=== PATIENT | male | born 1940 | race Caucasian/White ===

== ENCOUNTER 2016-10-12 15:28 | Inpatient (IN) | payer MEDICARE ==
[~2016-10-12] VITALS: Ht 185.4 cm; Wt 80.0 kg
[~2016-10-12 15:28] MED LIST: ASCO500C PO; ASPI325T PO; FOLI400T30 PO; LISI10TA PO; MEDR4PAK3 PO; METH2.5 PO; VITA500T49 PO; VITATAB25 OR; [UNRECOGNIZED DRUG - CODE] PO
[2016-10-12 16:06] VITALS: BP 155/74; PULSE 102; RESP 20; TEMP 98.7; O2SAT 100
[2016-10-12] MEDS ORDERED: SODIUM CHLORIDE 0.9% FLUSH 10 ML FLUSH IVF PRN (16:15)
[2016-10-12 16:23] VITALS: O2SAT 100
[2016-10-12] MEDS ORDERED: FOLI800T PO (16:27)
[2016-10-12] MEDS ORDERED: CETI10 PO (16:27)
[2016-10-12] MEDS ORDERED: ASPI81CH37 CHEW (16:27)
[2016-10-12] MEDS ORDERED: CYMB60CA PO (16:27)
[2016-10-12] MEDS ORDERED: LISI-515 PO (16:31)
[2016-10-12] MEDS ORDERED: FLUT50SP EACH NARE (16:31)
[2016-10-12] MEDS ORDERED: METH2.5T PO (16:31)
--- NOTE | 2016-10-12 16:33 | PD ---
HPI Chief Complaint: Cold / Flu Symptoms Time Seen by Provider: 15:58 Travel History International Travel<30 days: No Contact w/Intl Traveler<30days: No Traveled to known affect area: No History of Present Illness HPI This is a 76 year-old gentleman with history of multiple sclerosis, who [facility] and lethargy. The patient states he's had a cough for last several days. He denies any fevers but does state he's been weak and not feeling his normal self. He reports decreased appetite. He also reports decreased urination. There are no other complaints time my examination. PFSH Past Medical History Hypertension: Yes Neurologic: Yes (MULTIPLE SCLEROSIS) Past Surgical History Appendectomy: Yes Eye Surgery: Yes (cataracts) Neurologic Surgery: Yes (TRIGEMINAL NEURALGIA 6 PROCEDURES) Other Surgery: Yes (SKIN CANCER REMOVAL) Social History Alcohol Use: No Tobacco Use: No (QUIT 1984) Substance Use: No Allergies-Medications (Allergen,Severity, Reaction): Coded Allergies: No Known Allergies (Verified , 03/31/12) Reported Meds & Prescriptions Reported Meds & Active Scripts Active Reported Tramadol (Tramadol HCl) 50 Mg Tab 50 Mg PO Q8H PRN Milk of Magnesia Liq (Magnesium Hydroxide) 400 Mg/5 Ml Susp 30 Ml PO Q6H PRN Cough Syrup (Guaifenesin) 100 Mg/5 Ml Syrp 100 Mg PO Q6H PRN Flexeril (Cyclobenzaprine HCl) 10 Mg Tab 10 Mg PO Q8HR PRN Mapap (Acetaminophen) 500 Mg Tab 500 Mg PO Q6HR PRN Fiber-Caps (Calcium Polycarbophil) 625 Mg Tab 625 Mg PO QID Carbamazepine 200 Mg Tab 200 Mg PO QID Fluticasone Nasal [place] 50 Mcg/Act Naspr 1 Mcg EACH NARE BID 50 mcg/spray Methotrexate 2.5 Mg Tab 10 Mg PO WEDNESDAY Lisinopril 20 Mg Tab 20 Mg PO DAILY Folic Acid 800 Mcg Tab 800 Mcg PO DAILY Cymbalta DR (Duloxetine HCl) 60 Mg Capdr 60 Mg PO HS Cetirizine (Cetirizine HCl) 10 Mg Tab 10 Mg PO HS Aspirin Low Dose (Aspirin) 81 Mg Chew 81 Mg CHEW DAILY Review of Systems Except as stated in HPI: all other systems reviewed are Neg General / Constitutional: No: Fever HENT: No: Headaches, Neck Pain Cardiovascular: No: Chest Pain or Discomfort, Palpitations Respiratory: Positive: Cough (unknown whether there is color to his phlegm), No: Shortness of Breath, Wheezing Gastrointestinal: Positive: Loss of Appetite, No: Nausea, Vomiting, Abdominal Pain Genitourinary: Positive: Decreased Urinary Output, No: Dysuria Musculoskeletal: Positive: Weakness (generalized), No: Pain Neurologic: Positive: Weakness (generalized), Other (not feeling his normal self) Physical Exam Narrative GENERAL: Well-developed gentleman in no acute respiratory distress. SKIN: Focused skin assessment warm/dry. HEAD: Atraumatic. Normocephalic. EYES: Pupils equal and round. No scleral icterus. No injection or drainage. ENT: No nasal bleeding or discharge. Mucous membranes pink and moist. NECK: Trachea midline. No JVD. Supple CARDIOVASCULAR: Regular rate and rhythm. No murmur appreciated. RESPIRATORY: No accessory muscle use. Breath sounds equal bilaterally. There is questionable fine Rales at the bilateral bases. GASTROINTESTINAL: Abdomen soft, non-tender, nondistended. MUSCULOSKELETAL: No obvious deformities. No clubbing. No cyanosis. No edema. NEUROLOGICAL: Awake and alert. No obvious cranial nerve deficits. Patient has multiple sclerosis and therefore progressive muscle weakness. PSYCHIATRIC: Appropriate mood and affect; insight and judgment normal. Data Data Last Documented VS Vital Signs Date Time Temp Pulse Resp B/P Pulse Ox O2 Delivery O2 Flow Rate FiO2 10/12/16 18:02 97.8 102 17 177/79 98 Room Air Orders Electrocardiogram (10/12/16 16:07) Complete Blood Count With Diff (10/12/16 16:07) Comprehensive Metabolic Panel (10/12/16 16:07) Chest, Single Ap (10/12/16 16:07) Ecg Monitoring (10/12/16 16:07) Iv Access Insert/Monitor (10/12/16 16:07) Oximetry (10/12/16 16:07) Sodium Chloride 0.9% Flush (Ns Flush) (10/12/16 16:15) Ckmb (Isoenzyme) Profile (10/12/16 16:07) Troponin I (10/12/16 16:07) Urinalysis - C+S If Indicated (10/12/16 16:07) Lactic Acid Sepsis Protocol (10/12/16 16:07) Urine Culture (10/12/16 18:10) Ceftriaxone Inj (Rocephin Inj) (10/12/16 19:15) Sodium Chlor 0.9% 1000 Ml Inj (Ns 1000 M (10/12/16 19:15) Labs Laboratory Tests Test 10/12/16 10/12/16 16:15 18:10 White Blood Count 11.3 TH/MM3 Red Blood Count 4.66 MIL/MM3 Hemoglobin 14.3 GM/DL Hematocrit 41.7 % Mean Corpuscular Volume 89.5 FL Mean Corpuscular Hemoglobin 30.7 PG Mean Corpuscular Hemoglobin 34.3 % Concent Red Cell Distribution Width 14.1 % Platelet Count 248 TH/MM3 Mean Platelet Volume 7.9 FL Neutrophils (%) (Auto) 91.2 % Lymphocytes (%) (Auto) 2.9 % Monocytes (%) (Auto) 5.2 % Eosinophils (%) (Auto) 0.1 % Basophils (%) (Auto) 0.6 % Neutrophils # (Auto) 10.3 TH/MM3 Lymphocytes # (Auto) 0.3 TH/MM3 Monocytes # (Auto) 0.6 TH/MM3 Eosinophils # (Auto) 0.0 TH/MM3 Basophils # (Auto) 0.1 TH/MM3 CBC Comment DIFF FINAL Differential Comment Sodium Level 143 MEQ/L Potassium Level 3.4 MEQ/L Chloride Level 109 MEQ/L Carbon Dioxide Level 22.0 MEQ/L Anion Gap 12 MEQ/L Blood Urea Nitrogen 16 MG/DL Creatinine 0.62 MG/DL Estimat Glomerular Filtration 126 ML/MIN Rate Random Glucose 122 MG/DL Lactic Acid Level 1.0 mmol/L Calcium Level 8.4 MG/DL Total Bilirubin 0.6 MG/DL Aspartate Amino Transf 19 U/L (AST/SGOT) Alanine Aminotransferase 22 U/L (ALT/SGPT) Alkaline Phosphatase 91 U/L Total Creatine Kinase 73 U/L Troponin I LESS THAN 0.02 NG/ML Total Protein 7.3 GM/DL Albumin 2.6 GM/DL Urine Color DARK-BROWN Urine Turbidity HAZY Urine pH 6.5 Urine Specific [place] 1.031 Urine Protein 100 mg/dL Urine Glucose (UA) NEG mg/dL Urine Ketones 80 mg/dL Urine Occult Blood SMALL Urine Nitrite NEG Urine Bilirubin NEG Urine Urobilinogen 2.0 MG/DL Urine Leukocyte Esterase NEG Urine RBC 131 /hpf Urine WBC 10 /hpf Urine Mucus FEW /lpf Microscopic Urinalysis Comment CULTURE INDICATED MDM Medical Decision Making Medical Screen Exam Complete: Yes Emergency Medical Condition: Yes Differential Diagnosis Pneumonia versus bronchitis versus UTI versus dehydration versus other metabolic derangement. Narrative Course 76-year-old male [facility] for [facility] evaluation. Patient also has worsening weakness. He's also reports decreased urine output. Patient has evidence of dehydration on his laboratory tests. He has persistent tachycardia. He has a UTI with hematuria as well. The patient will be admitted to the [facility]. There is a call out. He's been started on normal saline I V fluids as well as Rocephin for the UTI. Diagnosis Primary Impression: Hemorrhagic cystitis Additional Impressions: persistent tachycardia Dehydration Weakness Admitting Information Admitting Physician Requests: Observation Luke Sanchez MD Oct 12, 2016 16:33
[2016-10-12] MEDS ORDERED: CARB200T PO (16:35)
[2016-10-12] MEDS ORDERED: CALC1TAB68 PO (16:35)
[2016-10-12] MEDS ORDERED: MAPA500T PO (16:35)
[2016-10-12] MEDS ORDERED: CYCL1TAB29 PO (16:39)
[2016-10-12] MEDS ORDERED: TRAM50TA PO (16:39)
[2016-10-12] MEDS ORDERED: MILKSUS PO (16:39)
[2016-10-12] MEDS ORDERED: COUG100S PO (16:39)
[2016-10-12 16:53] LABS: ALT (GPT) 22 U/L (12-78); ANION GAP 12 MEQ/L (5-15); AST (GOT) 19 U/L (15-37); BLOOD UREA NITROGEN 16 MG/DL (7-18); CHLORIDE 109 MEQ/L (98-107); GLOMERULAR FILTRATION RATE 126 ML/MIN (>89); POTASSIUM 3.4 MEQ/L (3.5-5.1); SODIUM (NA) 143 MEQ/L (136-145)
[2016-10-12 16:56] LABS: ALKALINE PHOSPHATASE 91 U/L (45-117); TOTAL BILIRUBIN ADULT 0.6 MG/DL (0.2-1.0)
[2016-10-12 16:59] LABS: CREATINE KINASE 73 U/L (39-308)
[2016-10-12 17:04] LABS: AUTOMATED NEUTROPHIL # 10.3 TH/MM3 (1.8-7.7); BASOPHIL # 0.1 TH/MM3 (0-0.2); BASOPHIL % 0.6 % (0.0-2.0); EOSINOPHIL % 0.1 % (0.0-4.0); HEMATOCRIT 41.7 % (39.0-51.0); HEMO FLAGS DIFF FINAL; LYMPH % 2.9 % (9.0-44.0); LYMPHOCYTE # 0.3 TH/MM3 (1.0-4.8); MEAN CELL VOLUME 89.5 FL (80.0-100.0); MEAN CORPUSCULAR HEMOGLOBIN 30.7 PG (27.0-34.0); MEAN CORPUSCULAR HGB CONC 34.3 % (32.0-36.0); MONO % 5.2 % (0.0-8.0); NEUT % 91.2 % (16.0-70.0); PLATELET COUNT 248 TH/MM3 (150-450); RED BLOOD COUNT 4.66 MIL/MM3 (4.50-5.90); RED CELL DISTRIBUTION WIDTH 14.1 % (11.6-17.2); WHITE BLOOD COUNT 11.3 TH/MM3 (4.0-11.0)
[2016-10-12 18:02] VITALS: BP 177/79; PULSE 102; RESP 17; TEMP 97.8; O2SAT 98
[2016-10-12 18:39] LABS: BLOOD, URINE SMALL (NEG); COMMENT (UR) CULTURE INDICATED; CULTURE IF INDICATED CULTURE INDICATED; GLUCOSE,URINE NEG (NEG); KETONE, URINE 80 mg/dL (NEG); MUCUS URINE FEW /lpf (OCC); NITRITE,URINE NEG (NEG); PH, URINE 6.5 (5.0-8.5)
[2016-10-12 18:40] LABS: URINE COLOR DARK-BROWN (YELLW/STRAW)
--- NOTE | 2016-10-12 18:43 | RADRPT ---
EXAM DATE/TIME: 10/12/2016 16:19 [facility] COMPARISON: No previous studies available for comparison. INDICATIONS : Cough. MEDICAL HISTORY : None. SURGICAL HISTORY : None. ENCOUNTER: Initial ACUITY: 3 days PAIN SCORE: 0/10 LOCATION: Bilateral chest FINDINGS: Bilateral upper lobe parenchymal opacities are identified. Lungs are hypoaerated. Heart is mildly enlarged. Osseous structures appear intact. CONCLUSION: Bilateral upper lobe parenchymal opacities representing either airspace disease or pulmonary masses. Rafi Santos MD on October 12, 2016 at 18:40 Board Certified Radiologist. This report was verified electronically.
[2016-10-12] MEDS ORDERED: cefTRIAXone INJ 1,000 MG in SODIUM CHLORIDE 0.9% INJ 100 ML IV ONE (19:15)
[2016-10-12] MEDS: SODIUM CHLOR 0.9% 1000 ML INJ 1,000 ML IV SCH (19:34)
[2016-10-12 19:37] VITALS: BP 167/75; PULSE 110; RESP 16; O2SAT 94
[2016-10-12] MEDS ORDERED: NALOXONE HCL 0.4 MG/ML AMP IV PRN (19:45)
[2016-10-12] MEDS ORDERED: SODIUM CHLORIDE 0.9% FLUSH 10 ML FLUSH IV FLUSH PRN (19:45)
--- NOTE | 2016-10-12 20:50 | HHI.HP ---
HPI Service [facility] Primary Care Physician Unknown Admission Diagnosis hemorrhagic cystiits, dehydration, persistant tachycardia Diagnoses: (1) Bilateral pneumonia (2) UTI (urinary tract infection) (3) Hypokalemia Chief Complaint: Shortness of breath and cough Travel History International Travel<30 Days: No Contact w/Intl Traveler <30 Da: No Traveled to Known Affected Are: No History of Present Illness Written by Lashawn Cabral, acting as scribe for Dr. Banda on 10/12/16 at 20:33. The patient states that he's been living at [facility]. I was having trouble breathing and coughing "like Hell ". Denies fever. Cough with productive sputum but did not have color. It looked like spit, according to the patient. It may occur mostly after having something to drink. He also reports dysphagia - food didn't feel like it go "stuck". Denies odynophagia. He denies nausea, vomiting, diarrhea, or abdominal pain. He denies dizziness, vertigo, black or red stool, dysuria, hematuria. He is wheelchair bound, able to self-feed, diet is regular consistency, able to urinate on his own with a urinal. [facility] transfer notes : " bp 144/76, HR 120 irregular, o2 sat 87% on RA, temp 102.4 , confused " pt on our exam is awake, alert and able to answer questions, but at times asked for us to give him his "control button" of his wheel chair to adjust his bed position- seems he is somewhat confused Review of Systems Except as stated in HPI: all other systems reviewed are Neg Past Family Social History Past Medical History Hypertension Multiple sclerosis, progressive - patient of Dr. Marroquin Denies diabetes, CAD, CHF, irregular heart rhythm like a fib, COPD/Emphysema/ Asthma, liver problems/hepatitis, kidney problems, DVTs, PEs, CVA, seizures, thyroid problems, prostate problems, or cancers . Past Surgical History Brain surgery for trigeminal neuralgia - has had 6 surgeries Appendectomy . Reported Medications Reported Meds & Active Scripts Active Reported Tramadol (Tramadol HCl) 50 Mg Tab 50 Mg PO Q8H PRN Milk of Magnesia Liq (Magnesium Hydroxide) 400 Mg/5 Ml Susp 30 Ml PO Q6H PRN Cough Syrup (Guaifenesin) 100 Mg/5 Ml Syrp 100 Mg PO Q6H PRN Flexeril (Cyclobenzaprine HCl) 10 Mg Tab 10 Mg PO Q8HR PRN Mapap (Acetaminophen) 500 Mg Tab 500 Mg PO Q6HR PRN Fiber-Caps (Calcium Polycarbophil) 625 Mg Tab 625 Mg PO QID Carbamazepine 200 Mg Tab 200 Mg PO QID Fluticasone Nasal [place] 50 Mcg/Act Naspr 1 Mcg EACH NARE BID 50 mcg/spray Methotrexate 2.5 Mg Tab 10 Mg PO WEDNESDAY Lisinopril 20 Mg Tab 20 Mg PO DAILY Folic Acid 800 Mcg Tab 800 Mcg PO DAILY Cymbalta DR (Duloxetine HCl) 60 Mg Capdr 60 Mg PO HS Cetirizine (Cetirizine HCl) 10 Mg Tab 10 Mg PO HS Aspirin Low Dose (Aspirin) 81 Mg Chew 81 Mg CHEW DAILY . Allergies: Coded Allergies: No Known Allergies (Verified , 10/12/16) Active Ordered Medications Current Medications Sodium Chloride 2 ml 2 ml UNSCH PRN IVF FLUSH AFTER USING IV ACCESS; Start 10/12 at 16:15; Stop 10/12/16 at 19:53; Status DC Ceftriaxone Sodium 1000 mg/ Sodium Chloride 100 ml @ 200 mls/hr ONCE ONCE IV Last administered on 10/12/16 19:34; Start 10/12/16 at 19:15; Stop 10/12/16 at 19: 44; Status DC Sodium Chloride (NS 1000 ml Inj) 1,000 ml @ 125 mls/hr Q8H IV Last administered on 10/12/16 19:34; Start 10/12/16 at 19:15 Sodium Chloride (NS Flush) 2 ml UNSCH PRN IV FLUSH FLUSH AFTER USING IV ACCESS ; Start 10/12/16 at 19:45 Sodium Chloride (NS Flush) 2 ml BID IV FLUSH ; Start 10/12/16 at 21:00 Naloxone HCl (Narcan Inj) 0.4 mg UNSCH PRN IV SEE LABEL COMMENTS; Start at 19:45 . Family History Father with gall bladder problems . Social History Tobacco: quit smoking 45 years ago Alcohol: former social smoker Illicit Drugs: denies . Physical Exam Vital Signs Vital Signs Date Time Temp Pulse Resp B/P Pulse Ox O2 Delivery O2 Flow Rate FiO2 10/12/16 19:37 110 16 167/75 94 Room Air 10/12/16 18:02 97.8 102 17 177/79 98 Room Air 10/12/16 16:23 100 10/12/16 16:06 98.7 102 20 155/74 100 Physical Exam GENERAL: This is a very pleasant elderly male MS patient, in no apparent distress. SKIN: No rashes, ecchymoses or lesions. Warm to touch. bilateral feet with erythema, bilateral knee area pressure points with mild erythema HEAD: Atraumatic. Normocephalic. EYES: No scleral icterus. No injection or drainage. ENT: Nose without bleeding, purulent drainage. NECK: Trachea midline. No JVD. CARDIOVASCULAR: Tachycardic around 110, regular rhythm without murmurs, gallops , or rubs. RESPIRATORY: Breath sounds diminished but equal bilaterally. No wheezes, rales, or rhonchi. GASTROINTESTINAL: Abdomen soft, non-tender, nondistended. No guarding. MUSCULOSKELETAL: Extremities without clubbing, cyanosis, or edema. No calf tenderness. NEUROLOGICAL: Awake and alert with mild confusion noted (thinks he is sitting in his wheelchair). Lower extremity contractures. LEFT UE contracture, RUE contracted though able to move better than the left. . Laboratory Laboratory Tests Test 10/12/16 10/12/16 16:15 18:10 White Blood Count 11.3 Red Blood Count 4.66 Hemoglobin 14.3 Hematocrit 41.7 Mean Corpuscular Volume 89.5 Mean Corpuscular Hemoglobin 30.7 Mean Corpuscular Hemoglobin 34.3 Concent Red Cell Distribution Width 14.1 Platelet Count 248 Mean Platelet Volume 7.9 Neutrophils (%) (Auto) 91.2 Lymphocytes (%) (Auto) 2.9 Monocytes (%) (Auto) 5.2 Eosinophils (%) (Auto) 0.1 Basophils (%) (Auto) 0.6 Neutrophils # (Auto) 10.3 Lymphocytes # (Auto) 0.3 Monocytes # (Auto) 0.6 Eosinophils # (Auto) 0.0 Basophils # (Auto) 0.1 CBC Comment DIFF FINAL Differential Comment Sodium Level 143 Potassium Level 3.4 Chloride Level 109 Carbon Dioxide Level 22.0 Anion Gap 12 Blood Urea Nitrogen 16 Creatinine 0.62 Estimat Glomerular Filtration 126 Rate Random Glucose 122 Lactic Acid Level 1.0 Calcium Level 8.4 Total Bilirubin 0.6 Aspartate Amino Transf 19 (AST/SGOT) Alanine Aminotransferase 22 (ALT/SGPT) Alkaline Phosphatase 91 Total Creatine Kinase 73 Troponin I LESS THAN 0.02 Total Protein 7.3 Albumin 2.6 Urine Color DARK-BROWN Urine Turbidity HAZY Urine pH 6.5 Urine Specific [place] 1.031 Urine Protein 100 Urine Glucose (UA) NEG Urine Ketones 80 Urine Occult Blood SMALL Urine Nitrite NEG Urine Bilirubin NEG Urine Urobilinogen 2.0 Urine Leukocyte Esterase NEG Urine RBC 131 Urine WBC 10 Urine Mucus FEW Microscopic Urinalysis Comment CULTURE INDICATED Date/Time Procedure Status Source Growth 10/12/16 18:10 Urine Culture Received Urine Random Urine Pending Result Diagram: 10/12/16 1615 10/12/16 1615 Imaging Last Impressions Chest X-Ray 10/12/16 1607 Signed Impressions: Service Date/Time: Wednesday, October 12, 2016 16:19 - CONCLUSION: Bilateral upper lobe parenchymal opacities representing either airspace disease or pulmonary masses. Rafi Santos MD . Assessment and Plan Problem List: (1) Bilateral pneumonia ICD Code: J18.9 Status: Acute (2) UTI (urinary tract infection) ICD Code: N39.0 Status: Acute (3) Hypokalemia ICD Code: E87.6 Status: Acute Assessment and Plan Bilateral pneumonia - Levaquin 750 mg IV q24h - Duonebulizers q4h PRN sob/wheezing - I will check BNP to evaluate for possible CHF - though chest x-ray image was personally reviewed and appears most consistent with bilateral upper lobe pneumonia - monitor vital signs every 4 hours - Monitor I and O qshift - Continuous cardiac telemetry to monitor for arrhythmia and to monitor rate - currently tachycardic with heart rate in 100's-110's - blood cx x 2 now as pt is quite warm, has documented fever of 102 at the [place] UTI suspected - UA results c/w UTI - Levaquin for UTI coverage as well - await urine culture results and adjust treatment if indicated Hypokalemia - replace P.O. - recheck BMP in a.m. and follow results - replace K+ as needed Immunocompromised state on Methotrexate - will monitor for response to antibiotics regimen - if no improvement, would need to change to stronger regimen DVT prophylaxis - Lovenox 40 mg subq q24h . resumed home meds This note was transcribed by [email or web address] [Lashawn Cabral]. I, Dr. Riki Banda personally performed the history, physical exam, and medical decision making; and confirmed the accuracy of the information in the transcribed note. Authenticated by Dr. Riki Banda on 10/12/16 at 20:33. Code Status DNR_ pt has [facility] papers from [place] Discussed Condition With ER physician, nursing staff and patient . Problem Qualifiers (1) Bilateral pneumonia: Qualified Code: J18.9 - Pneumonia of both upper lobes due to infectious organism (2) UTI (urinary tract infection): Qualified Code: N30.00 - Acute cystitis without hematuria Lashawn Cabral Oct 12, 2016 20:50 Riki Banda MD Oct 12, 2016 21:38
[2016-10-12] MEDS ORDERED: POTASSIUM CHLORIDE 25 MEQ EFFERVESCENT TAB PO ONE ×2 (21:15→21:30)
[2016-10-12] MEDS ORDERED: RESP: ALBUTEROL 2.5 MG/IPRATROPIUM 0.5 MG NEB (PRN) NEB (21:30)
[2016-10-12] MEDS: SODIUM CHLORIDE 0.9% FLUSH 10 ML FLUSH IV FLUSH SCH (21:35)
[2016-10-12] MEDS: ENOXAPARIN SODIUM 40 MG/0.4 ML SYRINGE SQ SCH (21:35)
[2016-10-12] MEDS: LEVOFLOXACIN 750 MG PREMIX INJ 150 ML IV SCH (21:36)
[2016-10-12] MEDS ORDERED: ACETAMINOPHEN 500 MG CPLT PO PRN (22:00)
[2016-10-12] MEDS ORDERED: CYCLOBENZAPRINE HCL 10 MG TAB PO PRN (22:00)
[2016-10-12 22:04] VITALS: PULSE 105
[2016-10-12 22:21] VITALS: BP 180/86; PULSE 105; RESP 18; TEMP 97.6; O2SAT 91
[2016-10-12] MEDS: traMADol HCL 50 MG TAB PO PRN (23:08)
[2016-10-13] VITALS (11 sets, daily range): BP systolic 140–155; BP diastolic 66–75; PULSE 88–106; RESP 16–20; TEMP 97.6–98.5; O2SAT 93–96
[2016-10-13] MEDS: SODIUM CHLOR 0.9% 1000 ML INJ 1,000 ML IV SCH ×3 (03:11→19:15)
[2016-10-13] MEDS: ASPIRIN 81 MG CHEW TAB CHEW SCH (09:44)
[2016-10-13] MEDS: FLUTICASONE PROPIONATE 50 MCG/ACT 16 GM NASAL SPRAY EACH NARE SCH ×2 (09:44→20:28)
[2016-10-13] MEDS: FOLIC ACID 1 MG TAB PO SCH (09:44)
[2016-10-13] MEDS: carBAMazepine 200 MG TAB PO SCH ×4 (09:44→20:28)
[2016-10-13] MEDS: LISINOPRIL 20 MG TAB PO SCH (09:44)
[2016-10-13] MEDS: metroNIDAZOLE 500 MG INJ 100 ML IV SCH ×2 (09:46→17:27)
[2016-10-13] MEDS: SODIUM CHLORIDE 0.9% FLUSH 10 ML FLUSH IV FLUSH SCH ×2 (09:46→20:29)
[2016-10-13 10:04] LABS: AUTOMATED NEUTROPHIL # 10.2 TH/MM3 (1.8-7.7); BASOPHIL % 0.2 % (0.0-2.0); EOSINOPHIL % 0.2 % (0.0-4.0); HEMATOCRIT 38.7 % (39.0-51.0); HEMO FLAGS DIFF FINAL; LYMPH % 4.5 % (9.0-44.0); LYMPHOCYTE # 0.5 TH/MM3 (1.0-4.8); MEAN CELL VOLUME 88.9 FL (80.0-100.0); MEAN CORPUSCULAR HEMOGLOBIN 31.1 PG (27.0-34.0); NEUT % 89.1 % (16.0-70.0); PLATELET COUNT 210 TH/MM3 (150-450); RED BLOOD COUNT 4.36 MIL/MM3 (4.50-5.90); RED CELL DISTRIBUTION WIDTH 13.9 % (11.6-17.2); WHITE BLOOD COUNT 11.4 TH/MM3 (4.0-11.0)
[2016-10-13 10:09] LABS: BICARBONATE 21.5 MEQ/L (21.0-32.0); POTASSIUM 3.5 MEQ/L (3.5-5.1)
[2016-10-13] MEDS ORDERED: IOHEXOL 350 MG/ML 10 ML VIAL (for RAD DIAG) IV ONE (10:53)
--- NOTE | 2016-10-13 11:36 | RADRPT ---
EXAM DATE/TIME: 10/13/2016 10:24 [facility] COMPARISON: CHEST SINGLE AP, October 12, 2016, 16:19. INDICATIONS : Shortness of breath, possible pneumonia. IV CONTRAST: 64 cc Omnipaque 350 (iohexol) IV RADIATION DOSE: 8.22 CTDIvol (mGy) MEDICAL HISTORY : Hypertension. SURGICAL HISTORY : Appendectomy. ENCOUNTER: Initial ACUITY: 1 day PAIN SCALE: 0/10 LOCATION: Bilateral chest TECHNIQUE: Volumetric scanning of the chest was performed. Using automated exposure control and adjustment of t he mA and/or kV according to patient size, radiation dose was kept as low as reasonably achievable to obtain optimal diagnostic quality images. DICOM format image data is available electronically for review and comparison. Follow-up recommendations for incidentally detected pulmonary nodules are based at a minimum on nodul e size and patient risk factors according to Fleischner Society Guidelines. FINDINGS: LUNGS: There are multiple scattered diffuse airspace infiltrates seen throughout both lung hernandez. The findi ngs suggest a diffuse bilateral inflammatory process such as pneumonia. There is one area of consolid ation measuring 2.2 cm in the right upper lung which is either part of this inflammatory process vers us a mass. There are no prior studies for comparison. PLEURA: There is no pleural thickening or pleural effusion. MEDIASTINUM: The heart and great vessels demonstrate no acute abnormality. There is no mediastinal or hilar lymph adenopathy. AXILLAE: Within normal limits. No lymphadenopathy. SKELETAL: Within normal limits for patient age. MISCELLANEOUS: The visualized upper abdominal organs demonstrate no acute abnormality. CONCLUSION: 1. There are multiple bilateral scattered airspace infiltrates throughout both lung hernandez most likel y representing a diffuse bilateral inflammatory process such as pneumonia. 2. There is one focal area of parenchymal consolidation measuring 2.2 cm in the right upper lung whic h is either part of this inflammatory process versus a possible mass. Therefore, recommend a followup noncontrast CT thorax at approximately 3-4 weeks after appropriate medical therapy to ensure improve ment and/or resolution of these multiple pulmonary infiltrates. If this area of parenchymal consolida tion remains, then a PET/CT could be performed for evaluation of focal hypermetabolic activity on an outpatient basis.. Abel Rooney MD on October 13, 2016 at 11:30 Board Certified Radiologist. This report was verified electronically.
[2016-10-13] MEDS ORDERED: guaiFENesin/DEXTROMETHORPHAN 200 MG/20 MG/10 ML CUP PO PRN (14:00)
--- NOTE | 2016-10-13 14:02 | HHI.PR ---
Subjective Remarks Follow-up for pneumonia. The patient states that he started feeling much better today. He states he is feeling extremely weak yesterday and he still feels like he is getting his strength back. He continues to have productive cough but states it is improving. Shortness of breath has improved. He denies any fevers or chills. Currently on room air. Denies any problems swallowing or recent vomiting. He denies any recent admissions. Objective Vitals Vital Signs Date Time Temp Pulse Resp B/P Pulse Ox O2 Delivery O2 Flow Rate FiO2 10/13/16 12:53 98.3 90 16 147/69 95 10/13/16 08:44 97.6 90 16 147/75 94 10/13/16 04:04 98.5 93 19 155/74 94 10/13/16 00:41 97.8 106 20 140/66 93 10/12/16 22:21 97.6 105 18 180/86 91 10/12/16 22:04 105 10/12/16 19:37 110 16 167/75 94 Room Air 10/12/16 18:02 97.8 102 17 177/79 98 Room Air 10/12/16 16:23 100 10/12/16 16:06 98.7 102 20 155/74 100 Result Diagram: 10/13/16 0838 10/13/16 0838 Imaging Last Impressions Chest CT 10/13/16 0000 Signed Impressions: Service Date/Time: Thursday, October 13, 2016 10:24 - CONCLUSION: 1. There are multiple bilateral scattered airspace infiltrates throughout both lung hernandez most likely representing a diffuse bilateral inflammatory process such as pneumonia. 2. There is one focal area of parenchymal consolidation measuring 2.2 cm in the right upper lung which is either part of this inflammatory process versus a possible mass. Therefore, recommend a followup noncontrast CT thorax at approximately 3-4 weeks after appropriate medical therapy to ensure improvement and/or resolution of these multiple pulmonary infiltrates. If this area of parenchymal consolidation remains, then a PET/CT could be performed for evaluation of focal hypermetabolic activity on an outpatient basis.. Abel Rooney MD Chest X-Ray 10/12/16 1607 Signed Impressions: Service Date/Time: Wednesday, October 12, 2016 16:19 - CONCLUSION: Bilateral upper lobe parenchymal opacities representing either airspace disease or pulmonary masses. Rafi Santos MD Objective Remarks GENERAL: Well-developed well-nourished. In no acute distress. SKIN: Warm and dry. No lesions noted. HEENT: Normocephalic. Pupils equal and round. Mucous membranes pink and moist. CARDIOVASCULAR: Regular rate and rhythm. No murmur appreciated. RESPIRATORY: No accessory muscle use. Clear to auscultation. Breath sounds equal bilaterally. GASTROINTESTINAL: Abdomen soft, non-tender, nondistended. Bowel sounds x4. MUSCULOSKELETAL: Upper extremity contractures. No clubbing or cyanosis. No edema. NEUROLOGICAL: Awake and alert. No focal neurological deficits. Moves upper and lower extremities spontaneously. Normal speech. PSYCHIATRIC: Appropriate mood and affect; insight and judgment normal. A/P Problem List: (1) Bilateral pneumonia ICD Code: J18.9 Status: Acute (2) UTI (urinary tract infection) ICD Code: N39.0 Status: Acute (3) Hypokalemia ICD Code: E87.6 Status: Resolved Assessment and Plan 76-year-old male with a past medical history of HTN, MS who was sent from SNF secondary to confusion, hypoxia, fever Bilateral pneumonia: [facility] sat 87% on RA, temp 102.4, confused. Symptoms seem to be improving faster than expected. Reviewed: WBC 11.4, afebrile. Chest x-ray personally reviewed with multiple upper and middle lobe opacities. BNP within normal limits. Speech therapy showed no signs of aspiration on eval. - IV Levaquin and Flagyl to cover typical and aspiration etiologies - Duonebulizers q4h PRN sob/wheezing - Telemetry monitoring with tachycardia - Check chest CT which showed multiple bilateral scattered air space infiltrates throughout both lung hernandez most likely representing a diffuse bilateral inflammatory process such as pneumonia; questionable focal consolidation that could be either inflammatory or mass and follow-up CT recommended in 3-4 weeks; patient informed of the findings and need to follow- up. - Check sputum culture - Acapella and antitussives as needed UTI suspected - UA results c/w UTI - Continue antibiotics as above - await urine culture results and adjust treatment if indicated Hypokalemia: Replaced orally, now within normal limits. - Monitor Immunocompromised state on Methotrexate - will monitor for response to antibiotics regimen - if no improvement, would need to change to stronger regimen DVT prophylaxis - Lovenox 40 mg subq q24h Discharge Planning Symptoms improving. Possible discharge back to SNF tomorrow. Problem Qualifiers (1) Bilateral pneumonia: Qualified Code: J18.9 - Pneumonia of both upper lobes due to infectious organism (2) UTI (urinary tract infection): Qualified Code: N30.00 - Acute cystitis without hematuria Wilfred Mitchell Oct 13, 2016 14:02
--- NOTE | 2016-10-13 15:46 | EKG ---
Date Performed: 10/12/2016 Time Performed: 16:45:14 PTAGE: 76 years EKG: SINUS TACHYCARDIA POSSIBLE LEFT ATRIAL ENLARGEMENT RIGHT BUNDLE BRANCH BLOCK LEFT ANTERIOR FASCICULAR BLOCK POSSIBLE LEFT VENTRICULAR HYPERTROPHY POSSIBLE SEPTAL MYOCARDIAL INFARCTION ABNORMAL ECG NO PREVIOUS TRACING DOCTOR: Claire Arreola Interpretating Date/Time 10/13/2016 15:41:22
[2016-10-13] MEDS: traMADol HCL 50 MG TAB PO PRN (20:28)
[2016-10-13] MEDS: ENOXAPARIN SODIUM 40 MG/0.4 ML SYRINGE SQ SCH (20:28)
[2016-10-13] MEDS ORDERED: DULoxetine HCl DR 60 MG CAP PO SCH (21:00)
[2016-10-13] MEDS: LEVOFLOXACIN 750 MG PREMIX INJ 150 ML IV SCH (21:39)
[2016-10-14] MEDS: metroNIDAZOLE 500 MG INJ 100 ML IV SCH ×2 (00:33→08:50)
[2016-10-14] MEDS: SODIUM CHLOR 0.9% 1000 ML INJ 1,000 ML IV SCH (03:15)
[2016-10-14 05:02] VITALS: BP 150/70; PULSE 87; RESP 16; TEMP 97.9; O2SAT 94
[2016-10-14 07:35] LABS: AUTOMATED NEUTROPHIL # 9.1 TH/MM3 (1.8-7.7); BASOPHIL # 0.1 TH/MM3 (0-0.2); BASOPHIL % 0.9 % (0.0-2.0); EOSINOPHIL # 0.1 TH/MM3 (0-0.4); EOSINOPHIL % 1.1 % (0.0-4.0); HEMATOCRIT 36.4 % (39.0-51.0); LYMPH % 5.2 % (9.0-44.0); LYMPHOCYTE # 0.5 TH/MM3 (1.0-4.8); MEAN CELL VOLUME 91.6 FL (80.0-100.0); MEAN CORPUSCULAR HEMOGLOBIN 32.5 PG (27.0-34.0); MEAN CORPUSCULAR HGB CONC 35.5 % (32.0-36.0); MONO % 5.5 % (0.0-8.0); NEUT % 87.3 % (16.0-70.0); PLATELET COUNT 198 TH/MM3 (150-450); RED BLOOD COUNT 3.97 MIL/MM3 (4.50-5.90); RED CELL DISTRIBUTION WIDTH 13.7 % (11.6-17.2); WHITE BLOOD COUNT 10.5 TH/MM3 (4.0-11.0)
[2016-10-14 07:47] LABS: MAGNESIUM 1.8 MG/DL (1.5-2.5)
[2016-10-14 07:55] LABS: HEMO FLAGS AUTO DIFF
[2016-10-14 07:57] LABS: POTASSIUM 3.5 MEQ/L (3.5-5.1)
[2016-10-14 08:00] VITALS: BP 157/81; PULSE 92; RESP 20; TEMP 98.6; O2SAT 94
--- NOTE | 2016-10-14 08:20 | EKG ---
Date Performed: 10/14/2016 Time Performed: 00:11:01 PTAGE: 76 years EKG: Sinus rhythm INCOMPLETE RIGHT BUNDLE BRANCH BLOCK BORDERLINE ECG NO PREVIOUS TRACING DOCTOR: Tino Rodriguez Interpretating Date/Time 10/14/2016 08:19:03
[2016-10-14 08:47] LABS: BANDS 3 % (0-6); EOSINOPHILS 2 % (0-4); NEUTROPHIL # MANUAL DIFF 9.5 TH/MM3 (1.8-7.7); POLYS (SEG NEUTROPHILS) 87 % (16-70); WBC DIFF SAMPLE 100
[2016-10-14 08:49] LABS: PLATELET ESTIMATE SMEAR NORMAL (NORMAL); PLATELET MORPHOLOGY NORMAL (NORMAL); SCAN/DIFF FINAL DIFF MANUAL
[2016-10-14] MEDS: FLUTICASONE PROPIONATE 50 MCG/ACT 16 GM NASAL SPRAY EACH NARE SCH (08:50)
[2016-10-14] MEDS: FOLIC ACID 1 MG TAB PO SCH (08:50)
[2016-10-14] MEDS: ASPIRIN 81 MG CHEW TAB CHEW SCH (08:50)
[2016-10-14] MEDS: carBAMazepine 200 MG TAB PO SCH (08:51)
[2016-10-14] MEDS: SODIUM CHLORIDE 0.9% FLUSH 10 ML FLUSH IV FLUSH SCH (08:51)
[2016-10-14] MEDS: LISINOPRIL 20 MG TAB PO SCH (08:51)
[2016-10-14] MEDS ORDERED: GUAI600T34 PO (11:24)
[2016-10-14] MEDS ORDERED: LEVO750T3 PO ×2 (11:24→11:34)
[2016-10-14 11:25] VITALS: BP 146/70; PULSE 90; RESP 20; TEMP 98.3; O2SAT 92
--- NOTE | 2016-10-14 11:28 | HHI.DCPOC ---
Discharge Care Plan Diagnosis: (1) Bilateral pneumonia (2) Weakness (3) Dehydration Goals to Promote Your Health * To prevent worsening of your condition and complications * To maintain your health at the optimal level Directions to Meet Your Goals Take your medications as prescribed Follow your dietary instruction Follow activity as directed Keep your appointments as scheduled Take your immunizations and boosters as scheduled If your symptoms worsen call your PCP, if no PCP go to Urgent Care Center or Emergency Room Smoking is Dangerous to Your Health. Avoid second hand smoke Call the 24-hour hour crisis hotline for domestic abuse at Hillary Guardado PA-C Oct 14, 2016 11:28 am
[2016-10-14] MEDS ORDERED: METR500T10 PO (11:34)
--- NOTE | 2016-10-14 11:43 | HHI.PR ---
Subjective Remarks Follow up for bilateral pneumonia. The patient reports feeling well today. Denies any chest pain or shortness of breath. Denies fevers/chills. He does report cough productive of yellow sputum which he believes is significantly improved. He has not required oxygen throughout admission, stable on room air. He is looking forward to going back to [facility] today. He has no other medical complaints at this time. Objective Vitals Vital Signs Date Time Temp Pulse Resp B/P Pulse Ox O2 Delivery O2 Flow Rate FiO2 10/14/16 11:25 98.3 90 20 146/70 92 10/14/16 08:00 98.6 92 20 157/81 94 10/14/16 05:02 97.9 87 16 150/70 94 10/13/16 23:58 98.4 88 18 151/71 94 10/13/16 23:14 106 10/13/16 20:02 98.1 99 18 141/67 96 10/13/16 17:21 89 10/13/16 16:04 97.8 89 16 147/66 95 10/13/16 12:53 98.3 90 16 147/69 95 10/13/16 12:11 89 Result Diagram: 10/14/16 0640 10/14/16 0640 Imaging Last Impressions Chest CT 10/13/16 0000 Signed Impressions: Service Date/Time: Thursday, October 13, 2016 10:24 - CONCLUSION: 1. There are multiple bilateral scattered airspace infiltrates throughout both lung hernandez most likely representing a diffuse bilateral inflammatory process such as pneumonia. 2. There is one focal area of parenchymal consolidation measuring 2.2 cm in the right upper lung which is either part of this inflammatory process versus a possible mass. Therefore, recommend a followup noncontrast CT thorax at approximately 3-4 weeks after appropriate medical therapy to ensure improvement and/or resolution of these multiple pulmonary infiltrates. If this area of parenchymal consolidation remains, then a PET/CT could be performed for evaluation of focal hypermetabolic activity on an outpatient basis.. Abel Rooney MD Chest X-Ray 10/12/16 1607 Signed Impressions: Service Date/Time: Wednesday, October 12, 2016 16:19 - CONCLUSION: Bilateral upper lobe parenchymal opacities representing either airspace disease or pulmonary masses. Rafi Santos MD Objective Remarks GENERAL: Well-nourished, well-developed pleasant elderly male patient in NAD. SKIN: Warm and dry. No rash. HEENT: Normocephalic. Atraumatic. Pupils equal and round. Entropion left eye. Mucous membranes pink and moist. NECK: Supple. Trachea midline. CARDIOVASCULAR: Regular rate and rhythm. S1, S2 noted. No murmur appreciated. RESPIRATORY: No accessory muscle use. Clear to auscultation. Breath sounds equal bilaterally. GASTROINTESTINAL: Abdomen soft, non-tender, nondistended. Normoactive bowel sounds x4. MUSCULOSKELETAL: Upper and lower extremity contractures. Extremities without clubbing, cyanosis, or edema. NEUROLOGICAL: Awake and alert. No obvious cranial nerve deficits. Normal speech. PSYCHIATRIC: Appropriate mood and affect; insight and judgment normal. Medications and IVs Current Medications Medications (Trade) Dose Ordered Sig/Xiang Route Start Time Stop Time Status Last Admin (NS 1000 ml Inj) 1,000 ml @ 125 mls/hr Q8H IV 10/12/16 19:15 10/14/16 03:15 (NS Flush) 2 ml UNSCH PRN IV FLUSH 10/12/16 19:45 (NS Flush) 2 ml BID IV FLUSH 10/12/16 21:00 10/13/16 09:46 Naloxone HCl 0.4 mg 0.4 mg UNSCH PRN IV 10/12/16 19:45 (Levaquin 750 Mg Premix Inj) 150 ml @ 100 mls/hr Q24H IV 10/12/16 22:00 10/13/16 21:39 (Lovenox Inj) 40 mg Q24H SQ 10/12/16 21:00 10/13/16 20:28 (Tylenol) 500 mg Q6HR PRN PO 10/12/16 22:00 10/13/16 22:26 (Aspirin Chew) 81 mg DAILY CHEW 10/13/16 09:00 10/14/16 08:50 (TEGretol) 200 mg QID PO 10/13/16 09:00 10/14/16 08:51 (Flexeril) 10 mg Q8HR PRN PO 10/12/16 22:00 (Cymbalta Dr) 60 mg HS PO 10/13/16 21:00 10/13/16 20:27 (Flonase James Spr) 1 spray BID EACH NARE 10/13/16 09:00 10/14/16 08:50 (Folate) 1 mg DAILY PO 10/13/16 09:00 10/14/16 08:50 (Prinivil) 20 mg DAILY PO 10/13/16 09:00 10/14/16 08:51 (Rheumatrex) 10 mg Q7D PO 10/16/16 09:00 Tramadol HCl 50 mg 50 mg Q8H PRN PO 10/12/16 22:00 10/13/16 20:28 (Flagyl 500 Mg Inj) 100 ml @ 100 mls/hr Q8H IV 10/13/16 09:00 10/14/16 08:50 (Robitussin Dm 200-20 Mg/10 ml Liq) 10 ml Q6H PRN PO 10/13/16 14:00 A/P Problem List: (1) Bilateral pneumonia ICD Code: J18.9 Status: Acute (2) UTI (urinary tract infection) ICD Code: N39.0 Status: Acute (3) Hypokalemia ICD Code: E87.6 Status: Resolved Assessment and Plan 76-year-old male with a past medical history of HTN, MS who was sent from SNF secondary to confusion, hypoxia, fever Bilateral pneumonia: Sent from senior living for O2 sat 87% on RA, temp 102.4, confused. Symptoms seem to be improving much faster than expected. Reviewed: WBC 11.4, afebrile. CXR personally reviewed with multiple upper and middle lobe opacities. BNP wnl. - Speech therapy showed no signs of aspiration on eval. - IV Levaquin and Flagyl to cover typical and aspiration etiologies - Supportive treatment with duonebs prn - Chest CT showed multiple bilateral scattered air space infiltrates throughout both lung hernandez most likely representing a diffuse bilateral inflammatory process such as pneumonia; questionable focal consolidation that could be either inflammatory or mass and follow-up CT recommended in 3-4 weeks; patient informed of the findings and need to follow-up. - Sputum culture pending at discharge - Acapella and antitussives as needed - patient had a remarkable response to treatment with more rapid improvement than expected, stable on room air, will d/c back to SNF UTI suspected - UA results c/w UTI - On antibiotics as above - Urine culture with no growth in 48hrs Hypokalemia: Replaced orally, now within normal limits. - Monitor Immunocompromised state on Methotrexate - patient responded well to above antibiotics, leukocytosis resolved DVT prophylaxis - Lovenox 40 mg subq q24h Discharge Planning Discharge patient to [facility] Condition on discharge: Improved Heart Healthy Diet as tolerated Ad Rosy activity Rx written: Levaquin 750mg qd x7days total, Flagyl 500mg q8h x7days, Mucinex BID Follow-up with primary care physician within 1 week Problem Qualifiers (1) Bilateral pneumonia: Qualified Code: J18.9 - Pneumonia of both upper lobes due to infectious organism (2) UTI (urinary tract infection): Qualified Code: N30.00 - Acute cystitis without hematuria Hillary Guardado PA-C Oct 14, 2016 11:43 am
[2016-10-14 12:34] VITALS: PULSE 90
[2016-10-16] MEDS ORDERED: METHOTREXATE 2.5 MG TAB PO SCH (09:00)
== END 2016-10-14 13:46 | DRG 689 ==
LOC: NEPC 15:28 → NEDA 19:24 → OBSVTOIN 20:55 → NEPGCP 21:12
PROVIDERS: ADMIT Internal Medicine; ATTEND Internal Medicine
DX: N30.01 Acute cystitis with hematuria (principal); J18.9 Pneumonia, unspecified organism; G35 Multiple sclerosis; E86.0 Dehydration; Z66 Do not resuscitate; R13.10 Dysphagia, unspecified; R00.0 Tachycardia, unspecified; E87.6 Hypokalemia; R09.02 Hypoxemia; I10 Essential (primary) hypertension; Z87.891 Personal history of nicotine dependence; Z99.3 Dependence on wheelchair
CPT/HCPCS: 71010; 71260; 80048; 80053; 81001; 82550; 83605; 83735; 83880; 84484; 85007; 85025; 85027; 87040; 87070; 87086; 87205; 93005; 94667; 94668; 99285; G8996-GN; G8997-GN; G8998-GN; J0696; J1650; J1956; J7030; Q9967

== ENCOUNTER 2016-11-16 14:48 | Inpatient (IN) | payer MEDICARE, MEDICAID ==
[~2016-11-16] VITALS: Ht 182.9 cm; Wt 80.1 kg
[~2016-11-16 14:48] MED LIST changes: -ASCO500C PO; -ASPI325T PO; +ASPI81CH37 CHEW; +CALC1TAB68 PO; +CARB200T PO; +CETI10 PO; +CYCL1TAB29 PO; +CYMB60CA PO; +FLUT50SP EACH NARE; -FOLI400T30 PO; +FOLI800T PO; +GUAI600T34 PO; +LEVO750T3 PO; +LISI-515 PO; -LISI10TA PO; +MAPA500T PO; -MEDR4PAK3 PO; -METH2.5 PO; +METH2.5T PO; +METR500T10 PO; +MILKSUS PO; +TRAM50TA PO; -VITA500T49 PO; -VITATAB25 OR; -[UNRECOGNIZED DRUG - CODE] PO
[2016-11-16 14:52] VITALS: BP 137/78; PULSE 124; RESP 16; TEMP 99.5; O2SAT 95
[2016-11-16] MEDS ORDERED: SODIUM CHLOR 0.9% 1000 ML INJ 1,000 ML IV ONE (15:01)
[2016-11-16] MEDS ORDERED: ACETAMINOPHEN 500 MG CPLT PO ONE (15:15)
[2016-11-16] MEDS ORDERED: TAMS0.4C4 PO (15:18)
--- NOTE | 2016-11-16 15:20 | RADRPT ---
EXAM DATE/TIME: 11/16/2016 15:14 [place] COMPARISON: CHEST SINGLE AP, October 12, 2016, 16:19. INDICATIONS : Altered mental status. MEDICAL HISTORY : Hypertension. SURGICAL HISTORY : None. ENCOUNTER: Initial ACUITY: 1 day PAIN SCORE: 0/10 LOCATION: Bilateral chest FINDINGS: Patchy airspace disease is seen in the right lung and left base. The heart and pulmonary vascularity are normal. The portion of the bony skeleton visualized is unremarkable. CONCLUSION: Minimal patchy airspace disease, improved from 10/12/16. Andry Pace MD FACR on November 16, 2016 at 15:17 Board Certified Radiologist. This report was verified electronically.
--- NOTE | 2016-11-16 15:27 | PD ---
HPI Chief Complaint: Fever Time Seen by Provider: 14:59 Travel History International Travel<30 days: No Contact w/Intl Traveler<30days: No Traveled to known affect area: No History of Present Illness HPI This is a 76-year-old male who presents to the emergency department brought in from a snf for confusion and fever. His snf staff reports that he was not as conversant as he normally is and he seemed a little bit confused this morning. His temperature at the snf was 100. With EMS it was 101. He was recently hospitalized here at [place] in early October in the setting of sepsis and he had a urinary tract infection and bilateral pneumonia. The patient denies any complaints. He says he feels well and has no pain. He doesn't feel feverish. PFSH Past Medical History Anemia: Yes Arthritis: Yes (RA) Blood Disorders: No Heart Rhythm Problems: No Cancer: Yes (SKIN CA) Cardiovascular Problems: Yes High Cholesterol: No Chemotherapy: Yes Chest Pain: No Congestive Heart Failure: No Endocrine: No Genitourinary: Yes (INCONTINENT) Hypertension: Yes Immune Disorder: No Musculoskeletal: Yes (MULTIPLE SCLEROSIS) Psychiatric: No Reproductive: No Respiratory: No Radiation Therapy: Yes Past Surgical History Appendectomy: Yes Eye Surgery: Yes (cataracts) Neurologic Surgery: Yes (TRIGEMINAL NEURALGIA 6 PROCEDURES) Other Surgery: Yes (SKIN CANCER REMOVAL) Social History Alcohol Use: No Tobacco Use: No (QUIT 1984) Substance Use: No Allergies-Medications (Allergen,Severity, Reaction): Coded Allergies: No Known Allergies (Verified , 11/16/16) Reported Meds & Prescriptions Reported Meds & Active Scripts Active Reported Tamsulosin (Tamsulosin HCl) 0.4 Mg Cap 0.4 Mg PO HS Mapap (Acetaminophen) 500 Mg Tab 500 Mg PO Q6HR PRN Fiber-Caps (Calcium Polycarbophil) 625 Mg Tab 625 Mg PO QID Carbamazepine 200 Mg Tab 200 Mg PO QID Fluticasone Nasal [place] 50 Mcg/Act Naspr 1 Mcg EACH NARE BID 50 mcg/spray Methotrexate 2.5 Mg Tab 10 Mg PO WEDNESDAY Lisinopril 20 Mg Tab 20 Mg PO DAILY Folic Acid 800 Mcg Tab 800 Mcg PO DAILY Cymbalta DR (Duloxetine HCl) 60 Mg Capdr 60 Mg PO HS Cetirizine (Cetirizine HCl) 10 Mg Tab 10 Mg PO HS Aspirin Low Dose (Aspirin) 81 Mg Chew 81 Mg CHEW DAILY Review of Systems ROS Limitations: Poor Historian Physical Exam Narrative GENERAL: Frail elderly male in no Acute distress SKIN: Focused skin assessment warm and dry. HEAD: Atraumatic. Normocephalic. EYES: Pupils equal and round. No injection or drainage. ENT: Moist mucous membranes NECK: Trachea midline. CARDIOVASCULAR: Regular rate and rhythm. No murmur appreciated. RESPIRATORY: Rales at the bilateral bases. GASTROINTESTINAL: Abdomen soft, non-tender, nondistended. Rosa catheter urine appears cloudy. MUSCULOSKELETAL: No obvious deformities. NEUROLOGICAL: Pleasant and conversant, oriented to person but not place or time. Left upper extremity and lower extremity hemiparesis with contractures. Data Data Last Documented VS Vital Signs Date Time Temp Pulse Resp B/P (MAP) Pulse Ox O2 Delivery O2 Flow Rate FiO2 11/16/16 17:00 98.4 101 22 101/55 (70) 94 Room Air Orders Orders Complete Blood Count With Diff (11/16/16 15:) Comprehensive Metabolic Panel (11/16/16 15:) Lactic Acid Sepsis Protocol (11/16/16 15:01) Urinalysis - C+S If Indicated (11/16/16 15:01) Blood Culture (11/16/16 15:) Chest, Single Ap (11/16/16 15:) Blood Glucose (11/16/16 15:01) Ecg Monitoring (11/16/16 15:01) Iv Access Insert/Monitor (11/16/16 15:01) Oximetry (11/16/16 15:01) Oxygen Administration (11/16/16 15:) Sodium Chlor 0.9% 1000 Ml Inj (Ns 1000 M (11/16/16 15:01) Acetaminophen (Tylenol) (11/16/16 15:15) Urinary Catheter Insert/Apply (11/16/16 15:22) Admit Order (Ed Use Only) (11/16/16 16:23) Urine Culture (11/16/16 16:22) Vancomycin Inj (Vancomycin Inj) (11/16/16 17:15) Cefepime Inj (Maxipime Inj) (11/16/16 17:15) Admit Order (Ed Use Only) (11/16/16 17:14) Labs Laboratory Tests Test 11/16/16 15:10 11/16/16 15:18 11/16/16 16:22 White Blood Count 20.0 TH/MM3 Red Blood Count 4.53 MIL/MM3 Hemoglobin 14.0 GM/DL Hematocrit 41.6 % Mean Corpuscular Volume 91.7 FL Mean Corpuscular Hemoglobin 30.9 PG Mean Corpuscular Hemoglobin Concent 33.7 % Red Cell Distribution Width 14.4 % Platelet Count 212 TH/MM3 Mean Platelet Volume 8.9 FL Neutrophils (%) (Auto) 91.6 % Lymphocytes (%) (Auto) 2.5 % Monocytes (%) (Auto) 5.5 % Eosinophils (%) (Auto) 0.1 % Basophils (%) (Auto) 0.3 % Neutrophils # (Auto) 18.4 TH/MM3 Lymphocytes # (Auto) 0.5 TH/MM3 Monocytes # (Auto) 1.1 TH/MM3 Eosinophils # (Auto) 0.0 TH/MM3 Basophils # (Auto) 0.1 TH/MM3 CBC Comment DIFF FINAL Differential Comment Blood Urea Nitrogen 10 MG/DL Creatinine 0.75 MG/DL Random Glucose 98 MG/DL Total Protein 7.1 GM/DL Albumin 2.7 GM/DL Calcium Level 8.3 MG/DL Alkaline Phosphatase 94 U/L Aspartate Amino Transf (AST/SGOT) 16 U/L Alanine Aminotransferase (ALT/SGPT) 25 U/L Total Bilirubin 0.8 MG/DL Sodium Level 138 MEQ/L Potassium Level 4.2 MEQ/L Chloride Level 105 MEQ/L Carbon Dioxide Level 24.1 MEQ/L Anion Gap 9 MEQ/L Estimat Glomerular Filtration Rate 102 ML/MIN Lactic Acid Level 1.8 mmol/L Urine Color YELLOW Urine Turbidity CLOUDY Urine pH 6.5 Urine Specific [place] 1.022 Urine Protein 300 mg/dL Urine Glucose (UA) NEG mg/dL Urine Ketones 80 mg/dL Urine Occult Blood LARGE Urine Nitrite NEG Urine Bilirubin NEG Urine Urobilinogen 2.0 MG/DL Urine Leukocyte Esterase LARGE Urine RBC /hpf Urine WBC /hpf Urine Transitional Epithelial Cells 2 /hpf Urine Amorphous Sediment RARE Urine Bacteria MANY /hpf Urine Mucus FEW /lpf Microscopic Urinalysis Comment CATH-CULTURE IND MDM Medical Decision Making Medical Screen Exam Complete: Yes Emergency Medical Condition: Yes Interpretation(s) temperature 99.5, tachycardic, normotensive Leukocytosis 92% neutrophils Electrolytes are reassuring Lactic acid is 1.8 Urinalysis: Infection Last 24 hours Impressions Chest X-Ray 11/16/16 1501 Signed Impressions: Service Date/Time: Wednesday, November 16, 2016 15:14 - CONCLUSION: Minimal patchy airspace disease, improved from 10/12/16. Andry Pace MD FACR Differential Diagnosis Pneumonia, urinary tract infection, sepsis, septic shock, sacral decubitus ulcer , meningitis Narrative Course This is an 86-year-old male who presents to the emergency department with fever and altered mental status. On exam he is actually quite pleasant and seems to have dementia but doesn't appear delirious. He does have a low-grade fever and tachycardia. He was placed on a monitor and an IV was established. Labs are obtained which demonstrate a leukocytosis of 20. He has an indwelling Rosa catheter and urine appears infected. I suspect this is the source of his infection. Patient was given broad-spectrum antibiotics. He will be admitted in the setting of sepsis due to a UTI. Physician Communication Physician Communication Discussed with Dr. Boateng Diagnosis Primary Impression: Sepsis Qualified Codes: A41.9 - Sepsis, unspecified organism Additional Impression: Urinary tract infection Qualified Codes: N30.00 - Acute cystitis without hematuria Admitting Information Admitting Physician Requests: Admit Elsy Aguilar MD Nov 16, 2016 15:27
[2016-11-16 16:19] LABS: AUTOMATED NEUTROPHIL # 18.4 TH/MM3 (1.8-7.7); BASOPHIL # 0.1 TH/MM3 (0-0.2); BASOPHIL % 0.3 % (0.0-2.0); EOSINOPHIL % 0.1 % (0.0-4.0); HEMATOCRIT 41.6 % (39.0-51.0); HEMO FLAGS DIFF FINAL; LYMPH % 2.5 % (9.0-44.0); LYMPHOCYTE # 0.5 TH/MM3 (1.0-4.8); MEAN CELL VOLUME 91.7 FL (80.0-100.0); MEAN CORPUSCULAR HEMOGLOBIN 30.9 PG (27.0-34.0); MEAN CORPUSCULAR HGB CONC 33.7 % (32.0-36.0); MONO % 5.5 % (0.0-8.0); NEUT % 91.6 % (16.0-70.0); PLATELET COUNT 212 TH/MM3 (150-450); RED BLOOD COUNT 4.53 MIL/MM3 (4.50-5.90); RED CELL DISTRIBUTION WIDTH 14.4 % (11.6-17.2)
[2016-11-16 16:38] LABS: ALT (GPT) 25 U/L (12-78); ANION GAP 9 MEQ/L (5-15); AST (GOT) 16 U/L (15-37); BICARBONATE 24.1 MEQ/L (21.0-32.0); BLOOD UREA NITROGEN 10 MG/DL (7-18); CHLORIDE 105 MEQ/L (98-107); GLOMERULAR FILTRATION RATE 102 ML/MIN (>89); POTASSIUM 4.2 MEQ/L (3.5-5.1); SODIUM (NA) 138 MEQ/L (136-145)
[2016-11-16 16:39] LABS: ALKALINE PHOSPHATASE 94 U/L (45-117); TOTAL BILIRUBIN ADULT 0.8 MG/DL (0.2-1.0)
[2016-11-16 16:39] LABS: BACTERIA, URINE MANY /hpf; BLOOD, URINE LARGE (NEG); GLUCOSE,URINE NEG (NEG); KETONE, URINE 80 mg/dL (NEG); MUCUS URINE FEW /lpf (OCC); NITRITE,URINE NEG (NEG); PH, URINE 6.5 (5.0-8.5); TRANSITIONAL EPI CELLS, URINE 2 /hpf; URINE COLOR YELLOW (YELLW/STRAW)
[2016-11-16 16:40] LABS: COMMENT (UR) CATH-CULTURE IND; CULTURE IF INDICATED CATH CULTURE IND
[2016-11-16 17:00] VITALS: BP_SYST 101; BP_SYST 130; BP_DIAS 55; BP_DIAS 62; PULSE 101; PULSE 110; RESP 22; TEMP 98.4; O2SAT 94
[2016-11-16] MEDS ORDERED: VANCOMYCIN INJ 1,250 MG in SODIUM CHLOR 0.9% 250 ML INJ 250 ML IV ONE (17:15)
[2016-11-16] MEDS ORDERED: CEFEPIME INJ 2,000 MG in SODIUM CHLORIDE 0.9% INJ 100 ML IV ONE (17:15)
--- NOTE | 2016-11-16 17:28 | HHI.HP ---
HPI Service [facility] Primary Care Physician Keagan Cagle MD Admission Diagnosis Sepsis Diagnoses: Chief Complaint: Confusion, fever Travel History International Travel<30 Days: No Contact w/Intl Traveler <30 Da: No Traveled to Known Affected Are: No History of Present Illness The patient is a 76-year-old male with past medical history of rheumatoid arthritis and multiple sclerosis who is presenting [facility] hospital [facility] with altered mental status and fever. Per reports the patient seemed a little more confused this morning and was found to have a fever. He was recently seen and treated in the hospital for pneumonia and a urinary tract infection. The patient does have a chronic Rosa catheter. The patient himself is complaining of butt pain. He is unable to elaborate more but would like something to relieve it. He says he has shortness of breath at night sometimes. He says he is breathing okay. He seems to be confused around the circumstances surrounding his hospitalization. He was found to have evidence of urinary tract infection and was started on broad-spectrum antibiotics in the emergency department. Review of Systems ROS Limitations: Clinical Condition, Poor Historian Except as stated in HPI: all other systems reviewed are Neg Past Family Social History Past Medical History RA HTN MS Skin cancer Trigeminal neuralgia s/p 6 procedures Past Surgical History Appendectomy Cataract surgery Allergies: Coded Allergies: No Known Allergies (Verified , 11/16/16) Active Ordered Medications Current Medications Medications (Trade) Dose Ordered Sig/Xiang Route Start Time Stop Time Status Last Admin Vancomycin HCl 1250 mg/Sodium Chloride 262.5 ml @ 250 mls/hr ONCE ONCE IV 11/16/16 17:15 11/16/16 18:17 Cefepime HCl 2000 mg/Sodium Chloride 100 ml @ 200 mls/hr ONCE ONCE IV 11/16/16 17:15 11/16/16 17:44 Family History The patient is unaware of pertinent family history Social History The patient denies smoking or drinking. Physical Exam Vital Signs Vital Signs Date Time Temp Pulse Resp B/P (MAP) Pulse Ox O2 Delivery O2 Flow Rate FiO2 11/16/16 15:09 96 Room Air 11/16/16 14:59 121 16 96 Room Air 11/16/16 14:52 99.5 124 16 137/78 (97) 95 Physical Exam GENERAL: Frail elderly male in no acute distress. SKIN: Focused skin assessment warm and dry. HEAD: Atraumatic. Normocephalic. EYES: Pupils equal and round. No injection or drainage. ENT: Moist mucous membranes NECK: Trachea midline. CARDIOVASCULAR: Tachycardic. No murmur appreciated. RESPIRATORY: Clear to auscultation bilaterally. GASTROINTESTINAL: Abdomen soft, non-tender, nondistended. Rosa catheter urine appears cloudy. MUSCULOSKELETAL: No obvious deformities. NEUROLOGICAL: Pleasant and conversant, oriented to person but not place or time. Left upper extremity and lower extremity hemiparesis with contractures. Laboratory Laboratory Tests Test 11/16/16 15:10 11/16/16 15:18 11/16/16 16:22 White Blood Count 20.0 Red Blood Count 4.53 Hemoglobin 14.0 Hematocrit 41.6 Mean Corpuscular Volume 91.7 Mean Corpuscular Hemoglobin 30.9 Mean Corpuscular Hemoglobin Concent 33.7 Red Cell Distribution Width 14.4 Platelet Count 212 Mean Platelet Volume 8.9 Neutrophils (%) (Auto) 91.6 Lymphocytes (%) (Auto) 2.5 Monocytes (%) (Auto) 5.5 Eosinophils (%) (Auto) 0.1 Basophils (%) (Auto) 0.3 Neutrophils # (Auto) 18.4 Lymphocytes # (Auto) 0.5 Monocytes # (Auto) 1.1 Eosinophils # (Auto) 0.0 Basophils # (Auto) 0.1 CBC Comment DIFF FINAL Differential Comment Blood Urea Nitrogen 10 Creatinine 0.75 Random Glucose 98 Total Protein 7.1 Albumin 2.7 Calcium Level 8.3 Alkaline Phosphatase 94 Aspartate Amino Transf (AST/SGOT) 16 Alanine Aminotransferase (ALT/SGPT) 25 Total Bilirubin 0.8 Sodium Level 138 Potassium Level 4.2 Chloride Level 105 Carbon Dioxide Level 24.1 Anion Gap 9 Estimat Glomerular Filtration Rate 102 Lactic Acid Level 1.8 Urine Color YELLOW Urine Turbidity CLOUDY Urine pH 6.5 Urine Specific [place] 1.022 Urine Protein 300 Urine Glucose (UA) NEG Urine Ketones 80 Urine Occult Blood LARGE Urine Nitrite NEG Urine Bilirubin NEG Urine Urobilinogen 2.0 Urine Leukocyte Esterase LARGE Urine RBC Urine WBC Urine Transitional Epithelial Cells 2 Urine Amorphous Sediment RARE Urine Bacteria MANY Urine Mucus FEW Microscopic Urinalysis Comment CATH-CULTURE IND Date/Time Source Procedure Growth Status 11/16/16 15:18 Blood Peripheral Aerobic Blood Culture Pending Received 11/16/16 15:18 Blood Peripheral Anaerobic Blood Culture Pending Received 11/16/16 16:22 Urine Catheterized Urine Urine Culture Pending Received Result Diagram: 11/16/16 1510 11/16/16 1510 Imaging Last Impressions Chest X-Ray 11/16/16 1501 Signed Impressions: Service Date/Time: Wednesday, November 16, 2016 15:14 - CONCLUSION: Minimal patchy airspace disease, improved from 10/12/16. Andry Pace MD FACR Caprini VTE Risk Assessment Caprini VTE Risk Assessment: Mod/High Risk (score >= 2) Caprini Risk Assessment Model Point Value = 1 Point Value = 2 Point Value = 3 Point Value = 5 Age 41-60 Minor surgery BMI > 25 kg/m2 Swollen legs Varicose veins or History of unexplained or recurrent spontaneous Oral contraceptives or hormone replacement Sepsis (< 1 month) Serious lung disease, including pneumonia (< 1 month) Abnormal pulmonary function Acute myocardial infarction Congestive heart failure (< 1 month) History of inflammatory bowel disease Medical patient at bed rest Age 61-74 Arthroscopic surgery Major open surgery (> 45 min) Laparoscopic surgery (> 45 min) Malignancy Confined to bed (> 72 hours) Immobilizing plaster cast Central venous access Age >= 75 History of VTE Family history of VTE Factor V Leiden Prothrombin [id number] Lupus anticoagulant Anticardiolipin antibodies Elevated serum homocysteine Heparin-induced thrombocytopenia Other congenital or acquired thrombophilia Stroke (< 1 month) Elective arthroplasty Hip, pelvis, or leg fracture Acute spinal cord injury (< 1 month) Prophylaxis Regimen Total Risk Factor Score Risk Level Prophylaxis Regimen 0-1 Low Early ambulation 2 Moderate Order ONE of the following: *Sequential Compression Device (SCD) *Heparin 5000 units SQ BID 3-4 Higher Order ONE of the following medications: *Heparin 5000 units SQ TID *Enoxaparin/Lovenox 40 mg SQ daily (WT < 150 kg, CrCl > 30 mL/min) *Enoxaparin/Lovenox 30 mg SQ daily (WT < 150 kg, CrCl > 10-29 mL/min) *Enoxaparin/Lovenox 30 mg SQ BID (WT < 150 kg, CrCl > 30 mL/min) AND/OR *Sequential Compression Device (SCD) 5 or more Highest Order ONE of the following medications: *Heparin 5000 units SQ TID (Preferred with Epidurals) *Enoxaparin/Lovenox 40 mg SQ daily (WT < 150 kg, CrCl > 30 mL/min) *Enoxaparin/Lovenox 30 mg SQ daily (WT < 150 kg, CrCl > 10-29 mL/min) *Enoxaparin/Lovenox 30 mg SQ BID (WT < 150 kg, CrCl > 30 mL/min) AND *Sequential Compression Device (SCD) Assessment and Plan Assessment and Plan Sepsis/ UTI The patient presented with altered mental status and fever. He has a white blood cell count of 20 and is tachycardic. He has a chronic Rosa catheter which is there apparently for urinary incontinence. Imaging does demonstrate pneumonia but it is improved from October. He was started on broad-spectrum antibiotics in the emergency department. - Continue IV Zosyn and vancomycin. - Follow urine culture. - Replace Rosa catheter. - IV fluids. - ID consult if needed. - telemetry. Metabolic encephalopathy Secondary to sepsis. - Treat underlying cause as above. - PT/OT. MS/ Trigeminal neuralgia Seems stable at this time. - continue home meds. PPx: Lovenox Code Status DNR Discussed Condition With Dr. Aguilar, pt Physician Certification 2 Midnight Certification Type: Admission for Inpatient Services Order for Inpatient Services The services are ordered in accordance with Medicare regulations or non- Medicare payer requirements, as applicable. In the case of services not specified as inpatient-only, they are appropriately provided as inpatient services in accordance with the 2-midnight benchmark. Estimated LOS (days): 2 days is the estimated time the patient will need to remain in the hospital, assuming treatment plan goals are met and no additional complications. Post-Hospital Plan: SNF Rah Boateng DO Nov 16, 2016 17:28
[2016-11-16] MEDS ORDERED: SODIUM CHLORIDE 0.9% FLUSH 10 ML FLUSH IV FLUSH PRN (17:45)
[2016-11-16] MEDS ORDERED: ACETAMINOPHEN 325 MG TAB PO PRN ×2 (17:45)
[2016-11-16] MEDS ORDERED: NALOXONE HCL 0.4 MG/ML AMP IV PRN (17:45)
[2016-11-16] MEDS ORDERED: Vancomycin Consult Pharmacy 1 EA OTHER SCH (18:00)
[2016-11-16] MEDS: SODIUM CHLOR 0.9% 1000 ML INJ 1,000 ML IV SCH (18:56)
[2016-11-16 20:00] VITALS: BP 116/59; PULSE 96; RESP 20; TEMP 97.5; O2SAT 95
[2016-11-16] MEDS: SODIUM CHLORIDE 0.9% FLUSH 10 ML FLUSH IV FLUSH SCH (21:00)
[2016-11-16] MEDS: DULoxetine HCl DR 60 MG CAP PO SCH (21:52)
[2016-11-16] MEDS: DOCUSATE SODIUM 50 MG/SENNA 8.6 MG TAB PO SCH (21:52)
[2016-11-16] MEDS: ENOXAPARIN SODIUM 30 MG/0.3 ML SYRINGE SQ SCH (21:52)
[2016-11-16] MEDS: TAMSULOSIN HCL 0.4 MG CAP PO SCH (21:53)
[2016-11-16] MEDS: CETIRIZINE HCL 10 MG TAB PO SCH (21:55)
[2016-11-16] MEDS: carBAMazepine 200 MG TAB PO SCH (22:02)
[2016-11-16] MEDS: FLUTICASONE PROPIONATE 50 MCG/ACT 16 GM NASAL SPRAY EACH NARE SCH (22:02)
[2016-11-17] VITALS (16 sets, daily range): BP systolic 113–158; BP diastolic 63–70; PULSE 89–107; RESP 18–20; TEMP 97.2–98; O2SAT 93–98
[2016-11-17] MEDS: VANCOMYCIN INJ 1,350 MG in SODIUM CHLORID 0.9% 500 ML INJ 500 ML IV SCH ×2 (05:24→17:22)
[2016-11-17] MEDS: CEFEPIME INJ 2,000 MG in SODIUM CHLORIDE 0.9% INJ 100 ML IV SCH ×2 (05:29→16:39)
[2016-11-17] MEDS: SODIUM CHLOR 0.9% 1000 ML INJ 1,000 ML IV SCH (06:52)
[2016-11-17] MEDS: SODIUM CHLORIDE 0.9% FLUSH 10 ML FLUSH IV FLUSH SCH ×2 (08:24→20:01)
[2016-11-17] MEDS: LISINOPRIL 20 MG TAB PO SCH (08:25)
[2016-11-17] MEDS: FLUTICASONE PROPIONATE 50 MCG/ACT 16 GM NASAL SPRAY EACH NARE SCH ×2 (08:25→20:02)
[2016-11-17] MEDS: FOLIC ACID 1 MG TAB PO SCH (08:26)
[2016-11-17] MEDS: ASPIRIN 81 MG CHEW TAB CHEW SCH (08:26)
[2016-11-17] MEDS: DOCUSATE SODIUM 50 MG/SENNA 8.6 MG TAB PO SCH ×2 (08:26→20:00)
[2016-11-17] MEDS: carBAMazepine 200 MG TAB PO SCH ×4 (08:26→20:00)
--- NOTE | 2016-11-17 13:48 | HHI.PR ---
Subjective Remarks The patient appeared comfortable. He said he had no pain whatsoever. He wanted to know why he was in the hospital. He said he has had urinary tract infections before. He wanted to know if he was dehydrated. Discussed with nursing. Objective Vitals Vital Signs Date Time Temp Pulse Resp B/P (MAP) Pulse Ox O2 Delivery O2 Flow Rate FiO2 11/17/16 12:00 97.2 96 20 134/63 (86) 98 11/17/16 08:00 97.6 95 20 120/63 (82) 96 11/17/16 08:00 97 11/17/16 07:50 93 21 11/17/16 06:49 89 11/17/16 04:52 94 11/17/16 04:00 98.0 101 20 113/70 (84) 94 11/17/16 00:00 98.0 107 20 158/70 (99) 95 11/16/16 20:00 97.5 96 20 116/59 (78) 95 11/16/16 19:26 11/16/16 17:00 98.4 101 22 101/55 (70) 94 Room Air 11/16/16 15:09 96 Room Air 11/16/16 14:59 121 16 96 Room Air 11/16/16 14:52 99.5 124 16 137/78 (97) 95 I/O 11/16/16 11/16/16 11/16/16 11/17/16 11/17/16 11/17/16 07:00 15:00 23:00 07:00 15:00 23:00 Intake Total 1260 ml 200 ml 882 ml Output Total 175 ml Balance 1260 ml 25 ml 882 ml Intake IV Total 1260 ml 200 ml 882 ml Output Urine Total 175 ml Result Diagram: 11/16/16 1510 11/16/16 1510 Imaging Last Impressions Chest X-Ray 11/16/16 1501 Signed Impressions: Service Date/Time: Wednesday, November 16, 2016 15:14 - CONCLUSION: Minimal patchy airspace disease, improved from 10/12/16. Andry Pace MD FACR Objective Remarks GENERAL: Frail elderly male in no acute distress. SKIN: Focused skin assessment warm and dry. HEAD: Atraumatic. Normocephalic. EYES: Pupils equal and round. No injection or drainage. ENT: Moist mucous membranes NECK: Trachea midline. CARDIOVASCULAR: Tachycardic. No murmur appreciated. RESPIRATORY: Clear to auscultation bilaterally. GASTROINTESTINAL: Abdomen soft, non-tender, nondistended. Rosa catheter urine appears cloudy. MUSCULOSKELETAL: No obvious deformities. NEUROLOGICAL: Pleasant and conversant, awake and alert. Left upper extremity and lower extremity hemiparesis with contractures. PSYCH: Mood and affect appropriate. Medications and IVs Current Medications Medications (Trade) Dose Ordered Sig/Xiang Route Start Time Stop Time Status Last Admin (Aspirin Chew) 81 mg DAILY CHEW 11/17/16 09:00 11/17/16 08:26 (TEGretol) 200 mg QID PO 11/16/16 18:00 11/17/16 12:41 (ZyrTEC) 10 mg HS PO 11/16/16 21:00 11/16/16 21:55 (Cymbalta Dr) 60 mg HS PO 11/16/16 21:00 11/16/16 21:52 (Flonase James Spr) 1 spray BID EACH NARE 11/16/16 21:00 11/17/16 08:25 (Folate) 1 mg DAILY PO 11/17/16 09:00 11/17/16 08:26 (Prinivil) 20 mg DAILY PO 11/17/16 09:00 11/17/16 08:25 (Flomax) 0.4 mg HS PO 11/16/16 21:00 11/16/16 21:53 (Rheumatrex) 10 mg Q7D PO 11/20/16 09:00 Sodium Chloride 1,000 ml @ 75 mls/hr [id number] IV 11/16/16 17:32 11/17/16 20:11 11/16/16 18:56 (NS Flush) 2 ml UNSCH PRN IV FLUSH 11/16/16 17:45 (NS Flush) 2 ml BID IV FLUSH 11/16/16 21:00 (Tylenol) 650 mg Q4H PRN PO 11/16/16 17:45 (Lovenox Inj) 30 mg Q24H SQ 11/16/16 18:00 11/16/16 21:52 (Tylenol) 650 mg Q6H PRN PO 11/16/16 17:45 (Roxicodone) 5 mg Q4H PRN PO 11/16/16 17:45 (Narcan Inj) 0.4 mg UNSCH PRN IV 11/16/16 17:45 (Phyllis-Colace) 1 tab BID PO 11/16/16 21:00 11/17/16 08:26 Pharmacy Profile Note 0 ml @ 0 mls/hr UNSCH OTHER 11/16/16 18:00 Vancomycin HCl 1350 mg/Sodium Chloride 513.5 ml @ 250 mls/hr Q12H IV 11/17/16 06:00 11/17/16 05:24 Cefepime HCl 2000 mg/Sodium Chloride 100 ml @ 200 mls/hr Q12H IV 11/17/16 05:00 11/17/16 05:29 Miscellaneous Information SPECIFIC LAB TO BE DRAWN:VANCO TROUGH DATE TO BE [facility].. ONCE ONCE .XX 11/18/16 05:45 11/18/16 05:46 A/P Assessment and Plan Sepsis/ UTI The patient presented with altered mental status and fever. He has a white blood cell count of 20 and is tachycardic. He has a chronic Rosa catheter which is there apparently for urinary incontinence. Imaging does demonstrate pneumonia but it is improved from October. He was started on broad-spectrum antibiotics in the emergency department. Rosa catheter was exchanged 11/16. Urine culture growing GNR. - Continue IV Zosyn and d/c vancomycin. - Follow urine culture. - IV fluids. - ID consult if no continued improvement. - telemetry. Metabolic encephalopathy Secondary to sepsis. - Treat underlying cause as above. - PT/OT. MS/ Trigeminal neuralgia Seems stable at this time. - continue home meds. Sleep apnea Per nursing there was reports he has been displaying apnea. - follow up with pulmonology for a sleep study as an outpt. PPx: Lovenox Discharge Planning Awaiting urine culture finalization. Rah Boateng DO Nov 17, 2016 13:48
[2016-11-17 15:47] LABS: AUTOMATED NEUTROPHIL # 13.2 TH/MM3 (1.8-7.7); BASOPHIL # 0.1 TH/MM3 (0-0.2); BASOPHIL % 0.5 % (0.0-2.0); EOSINOPHIL # 0.7 TH/MM3 (0-0.4); EOSINOPHIL % 4.3 % (0.0-4.0); HEMATOCRIT 38.7 % (39.0-51.0); HEMO FLAGS DIFF FINAL; LYMPH % 6.3 % (9.0-44.0); MEAN CELL VOLUME 92.1 FL (80.0-100.0); MEAN CORPUSCULAR HEMOGLOBIN 30.6 PG (27.0-34.0); MEAN CORPUSCULAR HGB CONC 33.2 % (32.0-36.0); MONO % 5.7 % (0.0-8.0); NEUT % 83.2 % (16.0-70.0); PLATELET COUNT 181 TH/MM3 (150-450); RED CELL DISTRIBUTION WIDTH 14.7 % (11.6-17.2); WHITE BLOOD COUNT 15.9 TH/MM3 (4.0-11.0)
[2016-11-17 16:12] LABS: ALT (GPT) 16 U/L (12-78); ANION GAP 9 MEQ/L (5-15); AST (GOT) 11 U/L (15-37); BICARBONATE 23.5 MEQ/L (21.0-32.0); BLOOD UREA NITROGEN 13 MG/DL (7-18); CHLORIDE 110 MEQ/L (98-107); GLOMERULAR FILTRATION RATE 152 ML/MIN (>89); POTASSIUM 3.5 MEQ/L (3.5-5.1); SODIUM (NA) 142 MEQ/L (136-145)
[2016-11-17 16:14] LABS: ALKALINE PHOSPHATASE 89 U/L (45-117); TOTAL BILIRUBIN ADULT 0.5 MG/DL (0.2-1.0)
[2016-11-17] MEDS: ENOXAPARIN SODIUM 30 MG/0.3 ML SYRINGE SQ SCH (16:40)
[2016-11-17] MEDS: TAMSULOSIN HCL 0.4 MG CAP PO SCH (20:00)
[2016-11-17] MEDS: CETIRIZINE HCL 10 MG TAB PO SCH (20:01)
[2016-11-17] MEDS: DULoxetine HCl DR 60 MG CAP PO SCH (20:01)
[2016-11-18] VITALS (9 sets, daily range): BP systolic 111–149; BP diastolic 68–75; PULSE 80–95; RESP 18–20; TEMP 97.3–97.9; O2SAT 95–98
[2016-11-18] MEDS ORDERED: PHARMACY ORDERED LAB ONE (05:45)
[2016-11-18] MEDS: CEFEPIME INJ 2,000 MG in SODIUM CHLORIDE 0.9% INJ 100 ML IV SCH ×2 (06:59→16:28)
[2016-11-18] MEDS: VANCOMYCIN INJ 1,350 MG in SODIUM CHLORID 0.9% 500 ML INJ 500 ML IV SCH (07:42)
[2016-11-18] MEDS: FOLIC ACID 1 MG TAB PO SCH (08:45)
[2016-11-18] MEDS: DOCUSATE SODIUM 50 MG/SENNA 8.6 MG TAB PO SCH ×2 (08:45→21:19)
[2016-11-18] MEDS: ASPIRIN 81 MG CHEW TAB CHEW SCH (08:45)
[2016-11-18] MEDS: SODIUM CHLORIDE 0.9% FLUSH 10 ML FLUSH IV FLUSH SCH ×2 (08:46→21:19)
[2016-11-18] MEDS: carBAMazepine 200 MG TAB PO SCH ×4 (08:46→21:19)
[2016-11-18] MEDS: LISINOPRIL 20 MG TAB PO SCH (08:46)
[2016-11-18] MEDS: FLUTICASONE PROPIONATE 50 MCG/ACT 16 GM NASAL SPRAY EACH NARE SCH ×2 (08:46→21:19)
[2016-11-18 13:01] LABS: AUTOMATED NEUTROPHIL # 9.1 TH/MM3 (1.8-7.7); BASOPHIL # 0.1 TH/MM3 (0-0.2); BASOPHIL % 0.5 % (0.0-2.0); EOSINOPHIL # 0.9 TH/MM3 (0-0.4); EOSINOPHIL % 7.4 % (0.0-4.0); HEMATOCRIT 38.6 % (39.0-51.0); HEMO FLAGS DIFF FINAL; LYMPH % 10.2 % (9.0-44.0); LYMPHOCYTE # 1.3 TH/MM3 (1.0-4.8); MEAN CELL VOLUME 91.1 FL (80.0-100.0); MEAN CORPUSCULAR HEMOGLOBIN 31.2 PG (27.0-34.0); MEAN CORPUSCULAR HGB CONC 34.3 % (32.0-36.0); MONO % 9.5 % (0.0-8.0); NEUT % 72.4 % (16.0-70.0); PLATELET COUNT 173 TH/MM3 (150-450); RED BLOOD COUNT 4.24 MIL/MM3 (4.50-5.90); RED CELL DISTRIBUTION WIDTH 14.6 % (11.6-17.2); WHITE BLOOD COUNT 12.6 TH/MM3 (4.0-11.0)
--- NOTE | 2016-11-18 14:43 | HHI.PR ---
Subjective Remarks The patient was feeling great. He was looking forward to discharge. He had no acute complaints. Discussed with nursing at bedside. Objective Vitals Vital Signs Date Time Temp Pulse Resp B/P (MAP) Pulse Ox O2 Delivery O2 Flow Rate FiO2 11/18/16 12:48 95 11/18/16 12:08 97.5 84 20 147/70 (95) 97 11/18/16 08:16 97.3 84 20 137/73 (94) 95 11/18/16 08:00 80 11/18/16 03:20 97.6 89 18 132/68 (89) 97 11/18/16 00:00 97.4 95 18 111/75 (87) 98 11/17/16 20:10 100 11/17/16 20:00 97.5 95 18 140/68 (92) 98 11/17/16 18:13 94 21 11/17/16 16:30 94 11/17/16 16:15 94 11/17/16 16:00 97.8 101 20 141/67 (91) 96 11/17/16 15:00 94 I/O 11/17/16 11/17/16 11/17/16 11/18/16 11/18/16 11/18/16 07:00 15:00 23:00 07:00 15:00 23:00 Intake Total 200 ml 882 ml Output Total 175 ml 850 ml Balance 25 ml 882 ml -850 ml Intake IV Total 200 ml 882 ml Output Urine Total 175 ml 850 ml Result Diagram: 11/18/16 1219 11/17/16 1320 Imaging Last Impressions Chest X-Ray 11/16/16 1501 Signed Impressions: Service Date/Time: Wednesday, November 16, 2016 15:14 - CONCLUSION: Minimal patchy airspace disease, improved from 10/12/16. Andry Pace MD FACR Objective Remarks GENERAL: Frail elderly male in no acute distress. SKIN: Focused skin assessment warm and dry. HEAD: Atraumatic. Normocephalic. EYES: Pupils equal and round. No injection or drainage. ENT: Moist mucous membranes NECK: Trachea midline. CARDIOVASCULAR: Tachycardic. No murmur appreciated. RESPIRATORY: Clear to auscultation bilaterally. GASTROINTESTINAL: Abdomen soft, mild suprapubic tenderness, nondistended. MUSCULOSKELETAL: No obvious deformities. NEUROLOGICAL: Pleasant and conversant, awake and alert. Left upper extremity and lower extremity hemiparesis with contractures. PSYCH: Mood and affect appropriate. Medications and IVs Current Medications Medications (Trade) Dose Ordered Sig/Xiang Route Start Time Stop Time Status Last Admin (Aspirin Chew) 81 mg DAILY CHEW 11/17/16 09:00 11/18/16 08:45 (TEGretol) 200 mg QID PO 11/16/16 18:00 11/18/16 12:34 (ZyrTEC) 10 mg HS PO 11/16/16 21:00 11/17/16 20:01 (Cymbalta Dr) 60 mg HS PO 11/16/16 21:00 11/17/16 20:01 (Flonase James Spr) 1 spray BID EACH NARE 11/16/16 21:00 11/18/16 08:46 (Folate) 1 mg DAILY PO 11/17/16 09:00 11/18/16 08:45 (Prinivil) 20 mg DAILY PO 11/17/16 09:00 11/18/16 08:46 (Flomax) 0.4 mg HS PO 11/16/16 21:00 11/17/16 20:00 (Rheumatrex) 10 mg Q7D PO 11/20/16 09:00 (NS Flush) 2 ml UNSCH PRN IV FLUSH 11/16/16 17:45 (NS Flush) 2 ml BID IV FLUSH 11/16/16 21:00 11/18/16 08:46 (Tylenol) 650 mg Q4H PRN PO 11/16/16 17:45 (Lovenox Inj) 30 mg Q24H SQ 11/16/16 18:00 11/17/16 16:40 (Tylenol) 650 mg Q6H PRN PO 11/16/16 17:45 (Roxicodone) 5 mg Q4H PRN PO 11/16/16 17:45 (Narcan Inj) 0.4 mg UNSCH PRN IV 11/16/16 17:45 (Phyllis-Colace) 1 tab BID PO 11/16/16 21:00 11/18/16 08:45 Pharmacy Profile Note 0 ml @ 0 mls/hr UNSCH OTHER 11/16/16 18:00 Vancomycin HCl 1350 mg/Sodium Chloride 513.5 ml @ 250 mls/hr Q12H IV 11/17/16 06:00 11/18/16 07:42 Cefepime HCl 2000 mg/Sodium Chloride 100 ml @ 200 mls/hr Q12H IV 11/17/16 05:00 11/18/16 06:59 A/P Assessment and Plan Sepsis/ UTI The patient presented with altered mental status and fever. He has a white blood cell count of 20 and is tachycardic. He has a chronic Rosa catheter which is there apparently for urinary incontinence. Imaging does demonstrate pneumonia but it is improved from October. He was started on broad-spectrum antibiotics in the emergency department. Rosa catheter was exchanged 11/16. Urine culture growing GNR and Providencia stuartii. Improving. - Continue IV cefepime and d/c vancomycin. - Follow urine culture. - telemetry. Metabolic encephalopathy Secondary to sepsis. - Treat underlying cause as above. - PT/OT. - resolved. MS/ Trigeminal neuralgia Seems stable at this time. - continue home meds. Sleep apnea Per nursing there was reports he has been displaying apnea. - follow up with pulmonology for a sleep study as an outpt. PPx: Lovenox Discharge Planning Awaiting urine culture finalization. Anticipate d/c to SNF in 1-2 days Rah Boateng DO Nov 18, 2016 14:43
[2016-11-18] MEDS: ENOXAPARIN SODIUM 30 MG/0.3 ML SYRINGE SQ SCH (16:29)
[2016-11-18] MEDS: CETIRIZINE HCL 10 MG TAB PO SCH (21:19)
[2016-11-18] MEDS: TAMSULOSIN HCL 0.4 MG CAP PO SCH (21:19)
[2016-11-18] MEDS: DULoxetine HCl DR 60 MG CAP PO SCH (21:19)
[2016-11-19] VITALS (8 sets, daily range): BP systolic 131–178; BP diastolic 73–86; PULSE 84–91; RESP 16–18; TEMP 97.5–98.2; O2SAT 94–96
[2016-11-19] MEDS: CEFEPIME INJ 2,000 MG in SODIUM CHLORIDE 0.9% INJ 100 ML IV SCH ×2 (06:30→17:57)
[2016-11-19] MEDS: FLUTICASONE PROPIONATE 50 MCG/ACT 16 GM NASAL SPRAY EACH NARE SCH ×2 (08:55→21:36)
[2016-11-19] MEDS: SODIUM CHLORIDE 0.9% FLUSH 10 ML FLUSH IV FLUSH SCH ×2 (08:55→21:36)
[2016-11-19] MEDS: carBAMazepine 200 MG TAB PO SCH ×4 (08:57→21:35)
[2016-11-19] MEDS: DOCUSATE SODIUM 50 MG/SENNA 8.6 MG TAB PO SCH ×2 (08:57→21:35)
[2016-11-19] MEDS: LISINOPRIL 20 MG TAB PO SCH (08:58)
[2016-11-19] MEDS: FOLIC ACID 1 MG TAB PO SCH (08:58)
[2016-11-19] MEDS: ASPIRIN 81 MG CHEW TAB CHEW SCH (08:59)
[2016-11-19 10:22] LABS: HEMATOCRIT 38.2 % (39.0-51.0); MEAN CELL VOLUME 88.3 FL (80.0-100.0); MEAN CORPUSCULAR HEMOGLOBIN 30.5 PG (27.0-34.0); MEAN CORPUSCULAR HGB CONC 34.5 % (32.0-36.0); PLATELET COUNT 208 TH/MM3 (150-450); RED BLOOD COUNT 4.33 MIL/MM3 (4.50-5.90); RED CELL DISTRIBUTION WIDTH 14.4 % (11.6-17.2); REVIEW FLAG FINAL; WHITE BLOOD COUNT 8.2 TH/MM3 (4.0-11.0)
[2016-11-19 10:41] LABS: BICARBONATE 25.2 MEQ/L (21.0-32.0); MAGNESIUM 1.8 MG/DL (1.5-2.5); POTASSIUM 3.3 MEQ/L (3.5-5.1)
--- NOTE | 2016-11-19 11:12 | HHI.PR ---
Subjective Remarks The patient said that he was feeling well. He was looking forward to being discharged today. He had no acute complaints. Objective Vitals Vital Signs Date Time Temp Pulse Resp B/P (MAP) Pulse Ox O2 Delivery O2 Flow Rate FiO2 11/19/16 08:00 97.5 84 16 136/76 (96) 96 11/19/16 06:42 91 143/77 (99) 11/19/16 05:19 98.0 86 17 178/86 (116) 95 11/19/16 00:55 98.2 88 17 147/73 (97) 94 11/18/16 21:13 97.9 83 18 149/72 (97) 95 11/18/16 20:05 87 11/18/16 16:09 97.6 83 20 130/68 (88) 95 11/18/16 12:48 95 11/18/16 12:08 97.5 84 20 147/70 (95) 97 I/O 11/18/16 11/18/16 11/18/16 11/19/16 11/19/16 11/19/16 07:00 15:00 23:00 07:00 15:00 23:00 Intake Total 240 ml 240 ml Output Total 850 ml 625 ml 450 ml Balance -850 ml -385 ml -210 ml Intake Oral 240 ml 240 ml Output Urine Total 850 ml 625 ml 450 ml Result Diagram: 11/19/16 0929 11/19/16 0929 Imaging Last Impressions Chest X-Ray 11/16/16 1501 Signed Impressions: Service Date/Time: Wednesday, November 16, 2016 15:14 - CONCLUSION: Minimal patchy airspace disease, improved from 10/12/16. Andry Pace MD FACR Objective Remarks GENERAL: Frail elderly male in no acute distress. SKIN: Focused skin assessment warm and dry. HEAD: Atraumatic. Normocephalic. EYES: Pupils equal and round. No injection or drainage. ENT: Moist mucous membranes NECK: Trachea midline. CARDIOVASCULAR: Tachycardic. No murmur appreciated. RESPIRATORY: Clear to auscultation bilaterally. GASTROINTESTINAL: Abdomen soft, mild suprapubic tenderness, nondistended. : Rosa in place. MUSCULOSKELETAL: No obvious deformities. NEUROLOGICAL: Pleasant and conversant, awake and alert. Some confusion. Left upper extremity and lower extremity hemiparesis with contractures. PSYCH: Mood and affect appropriate. Medications and IVs Current Medications Medications (Trade) Dose Ordered Sig/Xiang Route Start Time Stop Time Status Last Admin (Aspirin Chew) 81 mg DAILY CHEW 11/17/16 09:00 11/19/16 08:59 (TEGretol) 200 mg QID PO 11/16/16 18:00 11/19/16 08:57 (ZyrTEC) 10 mg HS PO 11/16/16 21:00 11/18/16 21:19 (Cymbalta Dr) 60 mg HS PO 11/16/16 21:00 11/18/16 21:19 (Flonase James Spr) 1 spray BID EACH NARE 11/16/16 21:00 11/19/16 08:55 (Folate) 1 mg DAILY PO 11/17/16 09:00 11/19/16 08:58 (Prinivil) 20 mg DAILY PO 11/17/16 09:00 11/19/16 08:58 (Flomax) 0.4 mg HS PO 11/16/16 21:00 11/18/16 21:19 (Rheumatrex) 10 mg Q7D PO 11/20/16 09:00 (NS Flush) 2 ml UNSCH PRN IV FLUSH 11/16/16 17:45 (NS Flush) 2 ml BID IV FLUSH 11/16/16 21:00 11/19/16 08:55 (Tylenol) 650 mg Q4H PRN PO 11/16/16 17:45 (Lovenox Inj) 30 mg Q24H SQ 11/16/16 18:00 11/18/16 16:29 (Tylenol) 650 mg Q6H PRN PO 11/16/16 17:45 (Roxicodone) 5 mg Q4H PRN PO 11/16/16 17:45 11/19/16 04:41 (Narcan Inj) 0.4 mg UNSCH PRN IV 11/16/16 17:45 (Phyllis-Colace) 1 tab BID PO 11/16/16 21:00 11/19/16 08:57 Cefepime HCl 2000 mg/Sodium Chloride 100 ml @ 200 mls/hr Q12H IV 11/17/16 05:00 11/19/16 06:30 (K-Lyte Cl Eff) 50 meq ONCE ONCE PO 11/19/16 11:00 11/19/16 11:01 UNV A/P Assessment and Plan Sepsis/ UTI The patient presented with altered mental status and fever. He has a white blood cell count of 20 and is tachycardic. He has a chronic Rosa catheter which is there apparently for urinary incontinence. Imaging does demonstrate pneumonia but it is improved from October. He was started on broad-spectrum antibiotics in the emergency department. Rosa catheter was exchanged 11/16. Urine culture growing Pseudomonas and Providencia stuartii. Improving. - Continue IV cefepime and d/c vancomycin. - Follow urine culture. Awaiting Pseudomonas sensitivities. - telemetry. Metabolic encephalopathy Secondary to sepsis. - Treat underlying cause as above. - PT/OT. - resolved. MS/ Trigeminal neuralgia Seems stable at this time. - continue home meds. Sleep apnea Per nursing there was reports he has been displaying apnea. - follow up with pulmonology for a sleep study as an outpt. Hypokalemia Possibly secondary to decreased by mouth intake. - Replete with potassium chloride. - Add ensure with meals. PPx: Lovenox Discharge Planning Awaiting urine culture finalization. Anticipate d/c to SNF in 1-2 days Rah Boateng DO Nov 19, 2016 11:12
[2016-11-19] MEDS ORDERED: POTASSIUM CHLORIDE 25 MEQ EFFERVESCENT TAB PO ONE (11:45)
[2016-11-19] MEDS: ENOXAPARIN SODIUM 30 MG/0.3 ML SYRINGE SQ SCH (17:59)
[2016-11-19] MEDS: DULoxetine HCl DR 60 MG CAP PO SCH (21:35)
[2016-11-19] MEDS: CETIRIZINE HCL 10 MG TAB PO SCH (21:35)
[2016-11-19] MEDS: TAMSULOSIN HCL 0.4 MG CAP PO SCH (21:35)
[2016-11-20] VITALS (8 sets, daily range): BP systolic 133–166; BP diastolic 69–89; PULSE 85–96; RESP 16–22; TEMP 97.4–98.1; O2SAT 95–98
[2016-11-20] MEDS: CEFEPIME INJ 2,000 MG in SODIUM CHLORIDE 0.9% INJ 100 ML IV SCH ×2 (04:48→16:07)
[2016-11-20] MEDS: SODIUM CHLORIDE 0.9% FLUSH 10 ML FLUSH IV FLUSH SCH ×2 (08:43→20:32)
[2016-11-20] MEDS: FOLIC ACID 1 MG TAB PO SCH (08:43)
[2016-11-20] MEDS: DOCUSATE SODIUM 50 MG/SENNA 8.6 MG TAB PO SCH ×2 (08:43→20:26)
[2016-11-20] MEDS: carBAMazepine 200 MG TAB PO SCH ×4 (08:43→20:26)
[2016-11-20] MEDS: LISINOPRIL 20 MG TAB PO SCH (08:43)
[2016-11-20] MEDS: ASPIRIN 81 MG CHEW TAB CHEW SCH (08:43)
[2016-11-20] MEDS: FLUTICASONE PROPIONATE 50 MCG/ACT 16 GM NASAL SPRAY EACH NARE SCH ×2 (08:45→20:32)
[2016-11-20] MEDS ORDERED: METHOTREXATE 2.5 MG TAB PO SCH (09:00)
--- NOTE | 2016-11-20 14:41 | HHI.PR ---
Subjective Remarks The patient was resting in bed comfortably. The patient was disappointed to hear that he would not be leaving the hospital today. The patient had no acute complaints. Discussed with nursing. Objective Vitals Vital Signs Date Time Temp Pulse Resp B/P (MAP) Pulse Ox O2 Delivery O2 Flow Rate FiO2 11/20/16 12:00 97.4 96 18 147/82 (103) 97 11/20/16 08:00 97.5 94 16 166/89 (114) 97 11/20/16 05:22 94 11/20/16 04:30 98.1 88 22 145/69 (94) 96 11/20/16 00:00 97.5 90 19 151/77 (101) 95 11/19/16 22:11 21 11/19/16 20:30 97.7 91 18 156/79 (104) 96 11/19/16 16:00 98.0 85 16 158/82 (107) 96 I/O 11/19/16 11/19/16 11/19/16 11/20/16 11/20/16 11/20/16 07:00 15:00 23:00 07:00 15:00 23:00 Intake Total 240 ml 700 ml 400 ml 450 ml Output Total 450 ml 1100 ml 100 ml 500 ml Balance -210 ml -400 ml 300 ml -50 ml Intake Oral 240 ml 600 ml 400 ml 450 ml IV Total 100 ml Output Urine Total 450 ml 1100 ml 100 ml 500 ml # Bowel Movements 0 0 Result Diagram: 11/19/16 0929 11/19/16 0929 Imaging Last Impressions Chest X-Ray 11/16/16 1501 Signed Impressions: Service Date/Time: Wednesday, November 16, 2016 15:14 - CONCLUSION: Minimal patchy airspace disease, improved from 10/12/16. Andry Pace MD FACR Objective Remarks GENERAL: Frail elderly male in no acute distress. SKIN: Focused skin assessment warm and dry. HEAD: Atraumatic. Normocephalic. EYES: Pupils equal and round. No injection or drainage. ENT: Moist mucous membranes NECK: Trachea midline. CARDIOVASCULAR: Tachycardic. No murmur appreciated. RESPIRATORY: Clear to auscultation bilaterally. GASTROINTESTINAL: Abdomen soft, mild suprapubic tenderness, nondistended. : Rosa in place. MUSCULOSKELETAL: No obvious deformities. NEUROLOGICAL: Pleasant and conversant, awake and alert. Some confusion. Left upper extremity and lower extremity hemiparesis with contractures. PSYCH: Mood and affect appropriate. Medications and IVs Current Medications Medications (Trade) Dose Ordered Sig/Xiang Route Start Time Stop Time Status Last Admin (Aspirin Chew) 81 mg DAILY CHEW 11/17/16 09:00 11/20/16 08:43 (TEGretol) 200 mg QID PO 11/16/16 18:00 11/20/16 13:14 (ZyrTEC) 10 mg HS PO 11/16/16 21:00 11/19/16 21:35 (Cymbalta Dr) 60 mg HS PO 11/16/16 21:00 11/19/16 21:35 (Flonase James Spr) 1 spray BID EACH NARE 11/16/16 21:00 11/19/16 21:36 (Folate) 1 mg DAILY PO 11/17/16 09:00 11/20/16 08:43 (Prinivil) 20 mg DAILY PO 11/17/16 09:00 11/20/16 08:43 (Flomax) 0.4 mg HS PO 11/16/16 21:00 11/19/16 21:35 (Rheumatrex) 10 mg Q7D PO 11/20/16 09:00 11/20/16 08:42 (NS Flush) 2 ml UNSCH PRN IV FLUSH 11/16/16 17:45 11/20/16 04:50 (NS Flush) 2 ml BID IV FLUSH 11/16/16 21:00 11/20/16 08:43 (Tylenol) 650 mg Q4H PRN PO 11/16/16 17:45 (Lovenox Inj) 30 mg Q24H SQ 11/16/16 18:00 11/19/16 17:59 (Tylenol) 650 mg Q6H PRN PO 11/16/16 17:45 (Roxicodone) 5 mg Q4H PRN PO 11/16/16 17:45 11/20/16 00:00 (Narcan Inj) 0.4 mg UNSCH PRN IV 11/16/16 17:45 (Phyllis-Colace) 1 tab BID PO 11/16/16 21:00 11/20/16 08:43 Cefepime HCl 2000 mg/Sodium Chloride 100 ml @ 200 mls/hr Q12H IV 11/17/16 05:00 11/20/16 04:48 A/P Assessment and Plan Sepsis/ UTI The patient presented with altered mental status and fever. He has a white blood cell count of 20 and is tachycardic. He has a chronic Rosa catheter which is there apparently for urinary incontinence. Imaging does demonstrate pneumonia but it is improved from October. He was started on broad-spectrum antibiotics in the emergency department. Rosa catheter was exchanged 11/16. Urine culture growing Pseudomonas and Providencia stuartii. Improving. - Continue IV cefepime and d/c vancomycin. - infectious disease consult requested in light of pseudomonas sensitivities. - telemetry. Metabolic encephalopathy Secondary to sepsis. - Treat underlying cause as above. - PT/OT. - resolved. MS/ Trigeminal neuralgia Seems stable at this time. - continue home meds. Sleep apnea Per nursing there was reports he has been displaying apnea. - follow up with pulmonology for a sleep study as an outpt. Hypokalemia Possibly secondary to decreased by mouth intake. - Replete with potassium chloride. Check labs in AM. - Add ensure with meals. PPx: Lovenox Discharge Planning Awaiting ID consultation. Anticipate d/c to SNF in 1-2 days. Rah Boateng DO Nov 20, 2016 14:41
[2016-11-20] MEDS: ENOXAPARIN SODIUM 30 MG/0.3 ML SYRINGE SQ SCH (17:13)
[2016-11-20] MEDS: DULoxetine HCl DR 60 MG CAP PO SCH (20:25)
[2016-11-20] MEDS: CETIRIZINE HCL 10 MG TAB PO SCH (20:26)
[2016-11-20] MEDS: TAMSULOSIN HCL 0.4 MG CAP PO SCH (20:26)
[2016-11-21] VITALS (7 sets, daily range): BP systolic 118–156; BP diastolic 65–80; PULSE 80–101; RESP 17–20; TEMP 97.3–98; O2SAT 95–98
[2016-11-21] MEDS: CEFEPIME INJ 2,000 MG in SODIUM CHLORIDE 0.9% INJ 100 ML IV SCH ×2 (04:50→17:10)
[2016-11-21] MEDS: FLUTICASONE PROPIONATE 50 MCG/ACT 16 GM NASAL SPRAY EACH NARE SCH ×2 (09:00→21:02)
[2016-11-21] MEDS: ASPIRIN 81 MG CHEW TAB CHEW SCH (09:52)
[2016-11-21] MEDS: SODIUM CHLORIDE 0.9% FLUSH 10 ML FLUSH IV FLUSH SCH ×2 (09:52→21:02)
[2016-11-21] MEDS: FOLIC ACID 1 MG TAB PO SCH (09:52)
[2016-11-21] MEDS: LISINOPRIL 20 MG TAB PO SCH (09:52)
[2016-11-21] MEDS: carBAMazepine 200 MG TAB PO SCH ×4 (09:53→21:01)
[2016-11-21] MEDS: DOCUSATE SODIUM 50 MG/SENNA 8.6 MG TAB PO SCH ×2 (09:53→21:01)
--- NOTE | 2016-11-21 10:26 | HHI.PR ---
Subjective Remarks No acute events overnight. Afebrile, vital signs stable. Patient has no complaints at this time. States he feels "fantastic" and would like to return to his assisted living facility. Objective Vitals Vital Signs Date Time Temp Pulse Resp B/P (MAP) Pulse Ox O2 Delivery O2 Flow Rate FiO2 11/21/16 07:52 97.5 83 17 143/80 (101) 98 11/21/16 04:00 97.3 101 18 118/71 (87) 95 11/21/16 00:30 98.0 80 19 156/68 (97) 97 11/20/16 23:05 90 11/20/16 21:15 97.6 96 18 160/79 (106) 98 11/20/16 16:00 97.4 85 18 133/78 (96) 96 11/20/16 12:00 97.4 96 18 147/82 (103) 97 I/O 11/20/16 11/20/16 11/20/16 11/21/16 11/21/16 11/21/16 07:00 15:00 23:00 07:00 15:00 23:00 Intake Total 450 ml 720 ml 900 ml Output Total 500 ml 1300 ml 300 ml 650 ml Balance -50 ml -580 ml 600 ml -650 ml Intake Oral 450 ml 720 ml 900 ml Output Urine Total 500 ml 1300 ml 300 ml 650 ml # Bowel Movements 0 0 Result Diagram: 11/19/1692811/19/16928 Objective Remarks GENERAL: Frail elderly male in no acute distress. SKIN: Focused skin assessment warm and dry. HEAD: Atraumatic. Normocephalic. EYES: Pupils equal and round. No injection or drainage. ENT: Moist mucous membranes NECK: Trachea midline. CARDIOVASCULAR: Regular rate and rhythm. No murmurs/rubs/gallops. RESPIRATORY: Clear to auscultation bilaterally. GASTROINTESTINAL: Abdomen soft, nontender, nondistended. : Rosa in place. MUSCULOSKELETAL: No obvious deformities. NEUROLOGICAL: Pleasant and conversant, awake and alert. Some confusion. Left upper extremity and lower extremity hemiparesis with contractures. PSYCH: Mood and affect appropriate. A/P Assessment and Plan Sepsis/ UTI - Sepsis resolved with IV antibiotics - Rosa catheter was exchanged 11/16. Urine culture growing Pseudomonas and Providencia stuartii. - Continue IV cefepime - Infectious Disease consult requested in light of pseudomonas sensitivities. - Remove Rosa as patient states he was able to urinate without issue prior to hospitalization one month ago when he was treated for PNA. Void trial. Metabolic encephalopathy Secondary to sepsis. - Treat underlying cause as above. - PT/OT. - resolved. MS/ Trigeminal neuralgia Seems stable at this time. - continue home meds. Sleep apnea Per nursing there was reports he has been displaying apnea. - follow up with pulmonology for a sleep study as an outpt. Hypokalemia Possibly secondary to decreased by mouth intake. - Replete with potassium chloride. - Add ensure with meals. PPx: Lovenox Discharge Planning Return to SNF once cleared by infectious disease. Estephanie Dobson MD R3 Nov 21, 2016 10:26
[2016-11-21] MEDS ORDERED: POTASSIUM CHLORIDE 20 MEQ CONTROLLED RELEASE TAB PO ONE (10:30)
[2016-11-21 12:03] LABS: BICARBONATE 25.5 MEQ/L (21.0-32.0); POTASSIUM 4.1 MEQ/L (3.5-5.1)
--- NOTE | 2016-11-21 16:15 | PD.ID.CON ---
History of Present Illness Service ID Consult Requested By Dr Boateng Reason for Consult UTI Primary Care Physician Keagan Cagle MD Diagnoses: History of Present Illness 76 yo male with multiple sclerois and indwelling foey for 1 mo presented [facility]: fever, mental status change and abnormal UA with pyuria His WBC was 20K+ He is on cefepime, improved and ready to be discharged He grew out PSAE along with Providencis and PSAE has no oral options He is feeling fine, with normal WBC and he is afebrile Blood clx were negative Pt is a quite poor historian, history obtained form the chart Pt's reinoso was d/c'd and he currentlyn has condom cath Review of Systems ROS Limitations: Poor Historian Past Family Social History Allergies: Coded Allergies: No Known Allergies (Verified , 11/16/16) Past Medical History RA HTN MS Skin cancer Trigeminal neuralgia s/p 6 procedures Past Surgical History Appendectomy Cataract surgery Active Ordered Medications Medications where reviewed in EMR Antibiotics Include: cefepime Family History reviwed Non-Contributory. Social History resides in custodial The patient denies smoking or drinking. Physical Exam Vital Signs Vital Signs Date Time Temp Pulse Resp B/P (MAP) Pulse Ox O2 Delivery O2 Flow Rate FiO2 11/21/16 12:00 97.6 96 17 129/78 (95) 98 11/21/16 09:55 94 11/21/16 07:52 97.5 83 17 143/80 (101) 98 11/21/16 04:00 97.3 101 18 118/71 (87) 95 11/21/16 00:30 98.0 80 19 156/68 (97) 97 11/20/16 23:05 90 11/20/16 21:15 97.6 96 18 160/79 (106) 98 Physical Exam CONSTITUTIONAL/GENERAL: This is an adequately nourished patient, in no apparent distress. TUBES/LINES/DRAINS: SKIN: No jaundice, rashes, or lesions. Skin temperature appropriate. Not diaphoretic. HEAD: Atraumatic. Normocephalic. EYES: Pupils equal and round and reactive. Extraocular motions intact. No scleral icterus. No injection or drainage. Fundi not examined. ENT: Hearing grossly normal. Nose without bleeding or purulent drainage. Oral mucosae without visible erythema, exudates, masses, or lesions. POor dentitions NECK: Trachea midline. Supple, nontender. No palpable thyroid enlargement or nodularity. CARDIOVASCULAR: Regular rate and rhythm without murmurs, gallops, or rubs. No JVD. Peripheral pulses symmetric. RESPIRATORY/CHEST: Symmetric, unlabored respirations. Clear to auscultation. Breath sounds equal bilaterally. No wheezes, rales, or rhonchi. GASTROINTESTINAL: Abdomen soft, non-tender, nondistended. No hepato-splenomegaly , or palpable masses. No guarding. Bowel sounds present. GENITOURINARY: Without palpable bladder distension. Condom catheter in place. with clear yelllwo urine MUSCULOSKELETAL: Extremities without clubbing, cyanosis, or edema. No joint tenderness or effusion noted. No calf tenderness. No mottling or clubbing. LYMPHATICS: No palpable cervical or supraclavicular adenopathy. NEUROLOGICAL: Awake and alert. Motor markedly decreased in LUE and LLE. Follows commands. Speech slightly disarthric. Moves all extremities. PSYCHIATRIC: calm adn cooperative Laboratory Laboratory Tests Test 11/21/16 10:29 Blood Urea Nitrogen 9 Creatinine 0.51 Random Glucose 86 Calcium Level 8.5 Magnesium Level 2.0 Sodium Level 140 Potassium Level 4.1 Chloride Level 106 Carbon Dioxide Level 25.5 Anion Gap 9 Estimat Glomerular Filtration Rate 158 Date/Time Source Procedure Growth Status 11/16/16 15:18 Blood Peripheral Aerobic Blood Culture - Final NO GROWTH IN 5 DAYS Complete 11/16/16 15:18 Blood Peripheral Anaerobic Blood Culture - Final NO GROWTH IN 5 DAYS Complete 11/16/16 16:22 Urine Catheterized Urine Urine Culture - Final Providencia Stuartii Pseudomonas Aeruginosa Complete Result Diagram: 11/19/16 0929 11/21/16 1029 Imaging Last Impressions Chest X-Ray 11/16/16 1501 Signed Impressions: Service Date/Time: Wednesday, November 16, 2016 15:14 - CONCLUSION: Minimal patchy airspace disease, improved from 10/12/16. Andry Pace MD FACR Assessment and Plan Assessment and Plan MS, neurogenic bladder Recent indwelling reinoso - d/c'd, uses condom cath now UTI, Providencia, PSAE - PSAE R cipro, no oral options complete cefepime x 2 weeks will need PICC (or midline) to complet therapy OK to dc from [facility] Candy Dee MD Nov 21, 2016 16:15
[2016-11-21] MEDS: ENOXAPARIN SODIUM 30 MG/0.3 ML SYRINGE SQ SCH (17:10)
[2016-11-21] MEDS: TAMSULOSIN HCL 0.4 MG CAP PO SCH (21:01)
[2016-11-21] MEDS: DULoxetine HCl DR 60 MG CAP PO SCH (21:01)
[2016-11-21] MEDS: CETIRIZINE HCL 10 MG TAB PO SCH (21:01)
[2016-11-22] VITALS: BP 145/65; PULSE 92; RESP 20; TEMP 97.6; O2SAT 94
[2016-11-22 03:00] VITALS: PULSE 94
[2016-11-22 04:00] VITALS: BP 134/69; PULSE 95; RESP 20; TEMP 97.2; O2SAT 94
[2016-11-22] MEDS: CEFEPIME INJ 2,000 MG in SODIUM CHLORIDE 0.9% INJ 100 ML IV SCH ×2 (05:36→16:15)
[2016-11-22 08:00] VITALS: BP 127/65; PULSE 92; RESP 18; TEMP 97.6; O2SAT 96
[2016-11-22] MEDS: SODIUM CHLORIDE 0.9% FLUSH 10 ML FLUSH IV FLUSH SCH (08:54)
[2016-11-22] MEDS: ASPIRIN 81 MG CHEW TAB CHEW SCH (08:54)
[2016-11-22] MEDS: carBAMazepine 200 MG TAB PO SCH ×2 (08:54→12:03)
[2016-11-22] MEDS: DOCUSATE SODIUM 50 MG/SENNA 8.6 MG TAB PO SCH (08:54)
[2016-11-22] MEDS: LISINOPRIL 20 MG TAB PO SCH (08:54)
[2016-11-22] MEDS: FOLIC ACID 1 MG TAB PO SCH (08:54)
[2016-11-22] MEDS: FLUTICASONE PROPIONATE 50 MCG/ACT 16 GM NASAL SPRAY EACH NARE SCH (08:55)
--- NOTE | 2016-11-22 09:09 | HHI.FF ---
Infusion Therapy Location of Infusion Therapy: [facility] Infusion Therapy Order Patient Information Patient Weight 80.1 kg Diagnosis: Diagnosis UTI Coded Allergies: No Known Allergies (Verified , 11/16/16) Administer Medication Cefepime 2 grams IV q 12 hours Start Treatment: Nov 22, 2016 Stop Treatment: Nov 30, 2016 Additional Information Venous access: PICC Line Additional Instructions [x] Peripheral flush and dressing changes per protocol [x] Implanted port and central parachute line tier: * Implanted port: 10 ml Normal Saline followed by 5 ml Heparin 100 units/ml Heparin flush after each use and monthly to maintain. [] May leave port accessed during therapy. [] May leave peripheral site accessed for duration of therapy. [x] If patient has SOB or respiratory distress, check oxygen saturation. If less than 90% or clinical signs of respiratory distress, administer oxygen at 2 L/min. via nasal cannula and notify physician. [x] Anaphylaxis/Reaction orders: * Stop infusion. * Keep IV line open with saline flush. * Notify physician. * Monitor vital signs every 15 minutes until symptoms resolve. * Check Oxygen saturation; Oxygen at 2 L/min. via nasal cannula if less than 90% or clinical signs of respiratory distress. * Administer diphenhydramine (Benadryl) 25 mg IV STAT, (unless patient has received as pre-med). May repeat once, if necessary. * Solu-Cortef 250 mg IVP over 30-60 seconds, use 100 mg vials for each dissolution. * Epinephrine (1mg/1 ml) 0.3 mg subcutaneously or IVP now with any signs of respiratory distress. * Check with physician for new additional pre-med orders if patient is re- challenged or re-treated. [x] May remove PICC line when treatment complete, after confirming with Physician. [x] If the patient is admitted to the hospital, the ED, or transferred via [facility] , complete transfer form including medication reconciliation order sheet. Laboratory Tests Weekly Labs: CBC w/diff, Creatinine, LFT's (Hepatic function test) Candy Dee MD Nov 22, 2016 09:09
[2016-11-22] MEDS ORDERED: CEFE2INJ2 IV (10:43)
--- NOTE | 2016-11-22 10:44 | HHI.DCPOC ---
Discharge Care Plan Goals to Promote Your Health * To prevent worsening of your condition and complications take all medications as prescribed * To maintain your health at the optimal level follow-up discharge instructions Directions to Meet Your Goals Take your medications as prescribed Follow your dietary instruction Follow activity as directed Keep your appointments as scheduled Take your immunizations and boosters as scheduled If your symptoms worsen call your PCP, if no PCP go to Urgent Care Center or Emergency Room Smoking is Dangerous to Your Health. Avoid second hand smoke Call the 24-hour hour crisis hotline for domestic abuse at Estephanie Dobson MD R3 Nov 22, 2016 10:44
--- NOTE | 2016-11-22 10:47 | HHI.DS ---
Discharge Summary Admission Date Nov 16, 2016 at 17:15 Discharge Date: Nov 22, 2016 Admitting Diagnosis Sepsis (1) UTI (urinary tract infection) ICD Code: N39.0 - Urinary tract infection, site not specified Status: Acute (2) Sepsis ICD Code: A41.9 - Sepsis, unspecified organism Status: Acute Procedures PICC placement Brief History - From Admission The patient is a 76-year-old male with past medical history of rheumatoid arthritis and multiple sclerosis who is presenting to the hospital from his [facility] with altered mental status and fever. Per reports the patient seemed a little more confused this morning and was found to have a fever. He was recently seen and treated in the hospital for pneumonia and a urinary tract infection. The patient does have a chronic Rosa catheter. The patient himself is complaining of butt pain. He is unable to elaborate more but would like something to relieve it. He says he has shortness of breath at night sometimes. He says he is breathing okay. He seems to be confused around the circumstances surrounding his hospitalization. He was found to have evidence of urinary tract infection and was started on broad-spectrum antibiotics in the emergency department. CBC/BMP: 11/19/16 0929 11/21/16 1029 Significant Findings Laboratory Tests Test 11/21/16 10:29 Creatinine 0.51 MG/DL (0.60-1.30) Imaging Last Impressions Chest X-Ray 11/16/16 1501 Signed Impressions: Service Date/Time: Wednesday, November 16, 2016 15:14 - CONCLUSION: Minimal patchy airspace disease, improved from 10/12/16. Andry Pace MD FACR PE at Discharge GENERAL: Frail elderly male in no acute distress. SKIN: Focused skin assessment warm and dry. HEAD: Atraumatic. Normocephalic. EYES: Pupils equal and round. No injection or drainage. ENT: Moist mucous membranes NECK: Trachea midline. CARDIOVASCULAR: Regular rate and rhythm. No murmurs/rubs/gallops. RESPIRATORY: Clear to auscultation bilaterally. GASTROINTESTINAL: Abdomen soft, nontender, nondistended. : Rosa in place. MUSCULOSKELETAL: No obvious deformities. NEUROLOGICAL: Pleasant and conversant, awake and alert. Some confusion. Left upper extremity and lower extremity hemiparesis with contractures. PSYCH: Mood and affect appropriate. Hospital Course Sepsis/ UTI - Sepsis resolved with IV antibiotics - Rosa catheter was exchanged 11/16. Urine culture growing Pseudomonas and Providencia stuartii. - Infectious disease consulted, appreciate recommendations - Continue IV cefepime for a total of 14 days, PICC line placed and infusion orders written so the patient may continue his antibiotic therapy at his SNF Urinary retention - Patient failed voiding trial - Rosa replaced - Splint patient that he will need to be discharged with the Rosa as he was unable to void and had a 600 cc residual urine in his bladder this morning Metabolic encephalopathy Secondary to sepsis. - Treat underlying cause as above. - PT/OT. - resolved. MS/ Trigeminal neuralgia Seems stable at this time. - continue home meds. Sleep apnea Per nursing there was reports he has been displaying apnea. - follow up with pulmonology for a sleep study as an outpt. Hypokalemia Possibly secondary to decreased by mouth intake. - Replete with potassium chloride. - Add ensure with meals. Pt Condition on Discharge: Stable Discharge Disposition: Discharge to SNF Discharge Time: <= 30 minutes Discharge Instructions DIET: Follow Instructions for: As Tolerated, No Restrictions Activities you can perform: Regular-No Restrictions Follow up Referrals: PCP Follow-up - 1 Week New Medications: Cefepime Inj (Cefepime Inj) 2 Gm/100 Ml Bagp 2 GM IV Q12H for Infection for 14 Days, BAG 0 Refills Continued Medications: Acetaminophen (Mapap) 500 Mg Tab 500 MG PO Q6HR PRN for PAIN, TAB 0 Refills Aspirin (Aspirin Low Dose) 81 Mg Chew 81 MG CHEW DAILY, TAB 0 Refills Calcium Polycarbophil (Fiber-Caps) 625 Mg Tab 625 MG PO QID for BOWEL REGULARITY, TAB Carbamazepine (Carbamazepine) 200 Mg Tab 200 MG PO QID for TMJ, #60 TAB 0 Refills Cetirizine (Cetirizine) 10 Mg Tab 10 MG PO HS for Allergies, TAB [address] (Cymbalta DR) 60 Mg Capdr 60 MG PO HS, #30 CAP 0 Refills Fluticasone Nasal [place] (Fluticasone Nasal [place]) 50 Mcg/Act Naspr 1 MCG EACH NARE BID for CONGESTION, #1 BOTTLE 0 Refills 50 mcg/spray Folic Acid (Folic Acid) 800 Mcg Tab 800 MCG PO DAILY for Nutritional Supplement, TAB 0 Refills Lisinopril (Lisinopril) 20 Mg Tab 20 MG PO DAILY, #30 TAB 0 Refills Methotrexate (Methotrexate) 2.5 Mg Tab 10 MG PO WEDNESDAY for MS RELATED TO MS, TAB 0 Refills Tamsulosin (Tamsulosin) 0.4 Mg Cap 0.4 MG PO HS for Manage Prostate Problems, #30 CAP 0 Refills Estephanie Dobson MD R3 Nov 22, 2016 10:47
[2016-11-22 11:11] LABS: AUTOMATED NEUTROPHIL # 5.5 TH/MM3 (1.8-7.7); BASOPHIL # 0.1 TH/MM3 (0-0.2); BASOPHIL % 0.6 % (0.0-2.0); EOSINOPHIL # 0.9 TH/MM3 (0-0.4); EOSINOPHIL % 11.5 % (0.0-4.0); HEMATOCRIT 41.2 % (39.0-51.0); HEMO FLAGS DIFF FINAL; LYMPH % 10.9 % (9.0-44.0); LYMPHOCYTE # 0.9 TH/MM3 (1.0-4.8); MEAN CELL VOLUME 89.2 FL (80.0-100.0); MEAN CORPUSCULAR HGB CONC 33.6 % (32.0-36.0); MONO % 7.9 % (0.0-8.0); NEUT % 69.1 % (16.0-70.0); PLATELET COUNT 275 TH/MM3 (150-450); RED BLOOD COUNT 4.62 MIL/MM3 (4.50-5.90); RED CELL DISTRIBUTION WIDTH 14.7 % (11.6-17.2); WHITE BLOOD COUNT 7.9 TH/MM3 (4.0-11.0)
[2016-11-22 11:22] LABS: BICARBONATE 26.7 MEQ/L (21.0-32.0); POTASSIUM 4.3 MEQ/L (3.5-5.1)
[2016-11-22 12:00] VITALS: BP 131/79; PULSE 91; RESP 18; TEMP 97.5; O2SAT 99
[2016-11-22 13:09] VITALS: RESP 18
[2016-11-22] MEDS ORDERED: BISACODYL EC 5 MG TABEC PO PRN (14:00)
[2016-11-22] MEDS ORDERED: MAGNESIUM HYDROXIDE SUSP 30 ML CUP PO PRN (14:00)
[2016-11-22] MEDS ORDERED: SOLU250I IV PUSH (16:45)
[2016-11-22] MEDS ORDERED: EPIN1INJ21 IV PUSH (16:45)
[2016-11-22] MEDS ORDERED: CEFE2INJ9 IV (16:45)
[2016-11-22] MEDS ORDERED: EPIN1INJ21 SQ (16:45)
== END 2016-11-22 17:15 | DRG 871 ==
LOC: NEPC 14:48 → NEDA 16:25 → UNDOADMIN 16:25 → NEDA 17:15 → N05A 19:52
PROVIDERS: ADMIT Family Medicine; ATTEND Family Medicine
PROC: 0T9B70Z Drainage of Bladder with Drainage Device, Via Natural or Artificial Opening (ICD-10-PCS; principal; 2016-11-16)
PROC: 3E0F7GC Introduction of Other Therapeutic Substance into Respiratory Tract, Via Natural or Artificial Opening (ICD-10-PCS; 2016-11-16)
DX: A41.9 Sepsis, unspecified organism (principal); J18.9 Pneumonia, unspecified organism; G93.41 Metabolic encephalopathy; G81.94 Hemiplegia, unspecified affecting left nondominant side; G35 Multiple sclerosis; N31.9 Neuromuscular dysfunction of bladder, unspecified; N39.0 Urinary tract infection, site not specified; M06.9 Rheumatoid arthritis, unspecified; I10 Essential (primary) hypertension; G50.0 Trigeminal neuralgia; Z85.828 Personal history of other malignant neoplasm of skin; Z87.891 Personal history of nicotine dependence; R00.0 Tachycardia, unspecified; Z66 Do not resuscitate; G47.30 Sleep apnea, unspecified; F03.90 Unspecified dementia, unspecified severity, without behavioral disturbance, psychotic disturbance, mood disturbance, and anxiety; E87.6 Hypokalemia
CPT/HCPCS: 36569; 51702; 71010; 76937; 80048; 80053; 80156; 80202; 81001; 83605; 83735; 85025; 85027; 87040; 87077; 87086; 87186; 96360; J0692; J1650; J3370; J7030; J7040; J7050; J8610

== ENCOUNTER 2016-12-20 12:28 | Inpatient (IN) | payer MEDICARE, MEDICAID ==
[~2016-12-20] VITALS: Ht 185.4 cm; Wt 82.0 kg
[~2016-12-20 12:28] MED LIST changes: +CEFE2INJ2 IV; +CEFE2INJ9 IV; -CYCL1TAB29 PO; +EPIN1INJ21 IV PUSH; +EPIN1INJ21 SQ; -GUAI600T34 PO; -LEVO750T3 PO; -METR500T10 PO; -MILKSUS PO; +SOLU250I IV PUSH; +TAMS0.4C4 PO; -TRAM50TA PO
[2016-12-20 12:40] VITALS: BP 141/78; PULSE 126; RESP 18; TEMP 98.7
[2016-12-20] MEDS ORDERED: SODIUM CHLOR 0.9% 1000 ML INJ 1,000 ML IV SCH ×3 (12:45→14:45)
[2016-12-20 13:02] VITALS: O2SAT 97
[2016-12-20 13:12] LABS: AUTOMATED NEUTROPHIL # 12.4 TH/MM3 (1.8-7.7); BASOPHIL % 0.2 % (0.0-2.0); HEMATOCRIT 43.3 % (39.0-51.0); HEMO FLAGS DIFF FINAL; LYMPHOCYTE # 0.3 TH/MM3 (1.0-4.8); MEAN CELL VOLUME 90.4 FL (80.0-100.0); MEAN CORPUSCULAR HEMOGLOBIN 30.3 PG (27.0-34.0); MEAN CORPUSCULAR HGB CONC 33.6 % (32.0-36.0); MONO % 3.1 % (0.0-8.0); NEUT % 94.7 % (16.0-70.0); PLATELET COUNT 204 TH/MM3 (150-450); RED CELL DISTRIBUTION WIDTH 16.1 % (11.6-17.2); WHITE BLOOD COUNT 13.1 TH/MM3 (4.0-11.0)
--- NOTE | 2016-12-20 13:34 | PD ---
HPI Chief Complaint: Fever Time Seen by Provider: 12:42 Travel History International Travel<30 days: No Contact w/Intl Traveler<30days: No Traveled to known affect area: No History of Present Illness HPI This is a 76-year-old male who presents to the emergency department with altered mental status that's been going on for 1 week per his family. History is limited due to patient's baseline dementia. He has a history of multiple sclerosis. He evidently was hospitalized recently in the setting of a urinary tract infection. He has an indwelling Rosa catheter. He says he feels generally under the weather. PFSH Past Medical History Anemia: Yes Arthritis: Yes (Rheumatoid Arthritis) Blood Disorders: No Heart Rhythm Problems: No Cancer: Yes (SKIN CA) Cardiovascular Problems: Yes High Cholesterol: No Chemotherapy: Yes Chest Pain: No Congestive Heart Failure: No Endocrine: No Genitourinary: Yes (INCONTINENT) Hypertension: Yes Immune Disorder: No Musculoskeletal: Yes (MULTIPLE SCLEROSIS) Psychiatric: No Reproductive: No Respiratory: No Radiation Therapy: Yes Past Surgical History Appendectomy: Yes Eye Surgery: Yes (cataracts) Neurologic Surgery: Yes (TRIGEMINAL NEURALGIA 6 PROCEDURES) Other Surgery: Yes (SKIN CANCER REMOVAL) Social History Alcohol Use: No Tobacco Use: No (QUIT 1984) Substance Use: No Allergies-Medications (Allergen,Severity, Reaction): Coded Allergies: No Known Allergies (Verified , 11/16/16) Reported Meds & Prescriptions Reported Meds & Active Scripts Active Epinephrine Inj 1 Mg/Ml (1 Ml) Inj 0.3 Mg SQ ONCE PRN Give with any signs of respiratory distress. Epinephrine Inj 1 Mg/Ml (1 Ml) Inj 0.3 Mg IV PUSH ONCE PRN Solu-Cortef Inj (Hydrocortisone Sodium Succinate) 250 Mg/2 Ml Inj 250 Mg IV PUSH ONCE PRN Give over 30-60 seconds. Maxipime Inj (Cefepime HCl) 2 Gram Inj 2 Gm IV Q12HR 7 Days Cefepime Inj (Cefepime HCl) 2 Gm/100 Ml Bagp 2 Gm IV Q12H 14 Days Reported Tamsulosin (Tamsulosin HCl) 0.4 Mg Cap 0.4 Mg PO HS Mapap (Acetaminophen) 500 Mg Tab 500 Mg PO Q6HR PRN Fiber-Caps (Calcium Polycarbophil) 625 Mg Tab 625 Mg PO QID Carbamazepine 200 Mg Tab 200 Mg PO QID Fluticasone Nasal [place] 50 Mcg/Act Naspr 1 Mcg EACH NARE BID 50 mcg/spray Methotrexate 2.5 Mg Tab 10 Mg PO WEDNESDAY Lisinopril 20 Mg Tab 20 Mg PO DAILY Folic Acid 800 Mcg Tab 800 Mcg PO DAILY Cymbalta DR (Duloxetine HCl) 60 Mg Capdr 60 Mg PO HS Cetirizine (Cetirizine HCl) 10 Mg Tab 10 Mg PO HS Aspirin Low Dose (Aspirin) 81 Mg Chew 81 Mg CHEW DAILY Review of Systems ROS Limitations: Poor Historian Physical Exam Narrative GENERAL: Frail elderly male SKIN: Focused skin assessment warm and dry. HEAD: Atraumatic. Normocephalic. EYES: Pupils equal and round. No injection or drainage. ENT: Moist mucous membranes NECK: Trachea midline. CARDIOVASCULAR: Tachycardic. No murmur appreciated. RESPIRATORY: Clear to auscultation. Breath sounds equal bilaterally. GASTROINTESTINAL: Abdomen soft, non-tender, nondistended. MUSCULOSKELETAL: No obvious deformities. NEUROLOGICAL: Awake and alert. Oriented to person and place. No obvious cranial nerve deficits. Right upper extremity does not lift against gravity. I lateral lower extremities are flexed and patient says he can extend them. Says these are both chronic for him. Data Data Last Documented VS Vital Signs Date Time Temp Pulse Resp B/P (MAP) Pulse Ox O2 Delivery O2 Flow Rate FiO2 12/20/16 14:51 124 18 127/80 (96) 97 Nasal Cannula 2.00 12/20/16 12:40 98.7 Orders Orders Complete Blood Count With Diff (12/20/16 12:43) Comprehensive Metabolic Panel (12/20/16 12:43) Lactic Acid Sepsis Protocol (12/20/16 12:43) Urinalysis - C+S If Indicated (12/20/16 12:43) Blood Culture (12/20/16 12:43) Chest, Single Ap (12/20/16 12:43) Blood Glucose (12/20/16 12:43) Ecg Monitoring (12/20/16 12:43) Iv Access Insert/Monitor (12/20/16 12:43) Oximetry (12/20/16 12:43) Oxygen Administration (12/20/16 12:43) Sodium Chlor 0.9% 1000 Ml Inj (Ns 1000 M (12/20/16 12:45) Electrocardiogram (12/20/16 ) Sodium Chlor 0.9% 1000 Ml Inj (Ns 1000 M (12/20/16 13:45) Urinary Catheter Insert/Apply (12/20/16 14:34) Sodium Chlor 0.9% 1000 Ml Inj (Ns 1000 M (12/20/16 14:45) Urine Culture (12/20/16 15:15) Ceftriaxone Inj (Rocephin Inj) (12/20/16 18:00) Admit Order (Ed Use Only) (12/20/16 17:46) Vital Signs (Adult) Q4H (12/20/16 17:48) Activity Bed Rest (12/20/16 17:48) Labs Laboratory Tests Test 12/20/16 12:50 12/20/16 14:20 12/20/16 15:15 White Blood Count 13.1 TH/MM3 Red Blood Count 4.80 MIL/MM3 Hemoglobin 14.5 GM/DL Hematocrit 43.3 % Mean Corpuscular Volume 90.4 FL Mean Corpuscular Hemoglobin 30.3 PG Mean Corpuscular Hemoglobin Concent 33.6 % Red Cell Distribution Width 16.1 % Platelet Count 204 TH/MM3 Mean Platelet Volume 7.9 FL Neutrophils (%) (Auto) 94.7 % Lymphocytes (%) (Auto) 2.0 % Monocytes (%) (Auto) 3.1 % Eosinophils (%) (Auto) 0.0 % Basophils (%) (Auto) 0.2 % Neutrophils # (Auto) 12.4 TH/MM3 Lymphocytes # (Auto) 0.3 TH/MM3 Monocytes # (Auto) 0.4 TH/MM3 Eosinophils # (Auto) 0.0 TH/MM3 Basophils # (Auto) 0.0 TH/MM3 CBC Comment DIFF FINAL Differential Comment Blood Urea Nitrogen 19 MG/DL Creatinine 0.94 MG/DL Random Glucose 92 MG/DL Total Protein 7.5 GM/DL Albumin 2.8 GM/DL Calcium Level 9.4 MG/DL Alkaline Phosphatase 75 U/L Aspartate Amino Transf (AST/SGOT) 20 U/L Alanine Aminotransferase (ALT/SGPT) 19 U/L Total Bilirubin 0.5 MG/DL Sodium Level 138 MEQ/L Potassium Level 4.5 MEQ/L Chloride Level 103 MEQ/L Carbon Dioxide Level 25.4 MEQ/L Anion Gap 10 MEQ/L Estimat Glomerular Filtration Rate 78 ML/MIN Lactic Acid Level 2.1 mmol/L 1.9 mmol/L Urine Color DARK-YELLOW Urine Turbidity CLOUDY Urine pH 6.0 Urine Specific [place] 1.023 Urine Protein 100 mg/dL Urine Glucose (UA) NEG mg/dL Urine Ketones 80 mg/dL Urine Occult Blood LARGE Urine Nitrite POS Urine Bilirubin NEG Urine Urobilinogen LESS THAN 2.0 MG/DL Urine Leukocyte Esterase LARGE Urine RBC /hpf Urine WBC /hpf Urine WBC Clumps MANY Urine Bacteria MOD /hpf Urine Mucus MOD /lpf Microscopic Urinalysis Comment CULTURE INDICATED MDM Medical Decision Making Medical Screen Exam Complete: Yes Emergency Medical Condition: Yes Interpretation(s) Afebrile, tachycardic, mild hypertension Leukocytosis 94% neutrophils Electrolytes are reassuring Lactic acid is 2.1 Repeat lactic acid is 1.9 Urinalysis demonstrates urinary tract infection. Chest x-ray demonstrates cardiomegaly. Differential Diagnosis Urinary tract infection, pneumonia, sepsis, dehydration Narrative Course This is a 76-year-old male who presents to the emergency department with generalized weakness. He has an indwelling Rosa catheter and has had sepsis in the past from urinary tract infections. He was placed in a monitor and an IV was established. He was found to be tachycardic. He has a mild leukocytosis of 13. A slightly elevated lactic acid of 2.1. Urinalysis after Rosa catheter change demonstrates urinary tract infection. Patient was given a dose or Rocephin in the emergency department as well as 2 L of IV hydration. He will be admitted for further sepsis management. He does have some ST depressions in the anterior leads on EKG which appear to be new but I think are likely rate related. He has no chest pain or trouble breathing and has no cardiac complaints I don't think this reflects ACS. I think EKG should be repeated when the patient's heart rate improves. Diagnosis Primary Impression: UTI (urinary tract infection) Qualified Codes: N30.00 - Acute cystitis without hematuria Admitting Information Admitting Physician Requests: Admit Elsy Aguilar MD Dec 20, 2016 13:34
[2016-12-20 13:52] LABS: ANION GAP 10 MEQ/L (5-15); AST (GOT) 20 U/L (15-37); BICARBONATE 25.4 MEQ/L (21.0-32.0); BLOOD UREA NITROGEN 19 MG/DL (7-18); CHLORIDE 103 MEQ/L (98-107); GLOMERULAR FILTRATION RATE 78 ML/MIN (>89); POTASSIUM 4.5 MEQ/L (3.5-5.1); SODIUM (NA) 138 MEQ/L (136-145)
[2016-12-20 13:53] LABS: ALT (GPT) 19 U/L (12-78)
[2016-12-20 13:55] LABS: ALKALINE PHOSPHATASE 75 U/L (45-117); TOTAL BILIRUBIN ADULT 0.5 MG/DL (0.2-1.0)
--- NOTE | 2016-12-20 14:48 | RADRPT ---
EXAM DATE/TIME: 12/20/2016 13:25 [place] COMPARISON: CT THORAX W CONTRAST, October 13, 2016, 10:24. CHEST SINGLE AP, November 16, 2016, 15:14. INDICATIONS : Fever- weakness. MEDICAL HISTORY : Hypertension. SURGICAL HISTORY : None. ENCOUNTER: Initial ACUITY: 1 day PAIN SCORE: 0/10 LOCATION: Bilateral chest FINDINGS: The cardiac silhouette is enlarged in transverse diameter. The lungs are hypoinflated but clear. No e ffusions are identified. There is a 2 cm nodule in the right upper lobe. This was seen on a prior CT but not has resolved. Repeat CT is recommended CONCLUSION: 1. Cardiomegaly. No acute pulmonary disease. 2 cm right upper lobe nodule. CT scan is recommended for further evaluation if clinically indicated. Manuel Stockton MD on December 20, 2016 at 14:46 Board Certified Radiologist. This report was verified electronically.
[2016-12-20 14:51] VITALS: BP 127/80; PULSE 124; RESP 18; O2SAT 97
[2016-12-20 15:06] LABS: LACTIC ACID GHOST NOT REPORTABLE
[2016-12-20 16:01] LABS: BACTERIA, URINE MOD /hpf; BLOOD, URINE LARGE (NEG); COMMENT (UR) CULTURE INDICATED; CULTURE IF INDICATED CULTURE INDICATED; GLUCOSE,URINE NEG (NEG); KETONE, URINE 80 mg/dL (NEG); MUCUS URINE MOD /lpf (OCC); NITRITE,URINE POS (NEG)
[2016-12-20 16:06] LABS: URINE COLOR DARK-YELLOW (YELLW/STRAW)
[2016-12-20] MEDS ORDERED: cefTRIAXone INJ 1,000 MG in SODIUM CHLORIDE 0.9% INJ 100 ML IV ONE (18:00)
--- NOTE | 2016-12-20 18:06 | HHI.HP ---
HPI Service [facility] Hospitalists Primary Care Physician Keagan Cagle MD Admission Diagnosis urinary tract infection, sepsis Diagnoses: Chief Complaint: AMS Travel History International Travel<30 Days: No Contact w/Intl Traveler <30 Da: No Traveled to Known Affected Are: No Sepsis Criteria SIRS Criteria (2 or more): Heart rate over 90, WBC > 48302, < 4000 or > 10% bands Sepsis Criteria (SIRS+source): Infect source susp/known Severe Sepsis (+one): Lactate >2 Criteria Outcome: Meets severe sepsis criteria History of Present Illness This is a 76yr old male with PMHX significant for RA and MS who is presenting [facility] ED due to altered mental status. Reportedly , patient's been more confused. Patient was just discharged from our facility on 11/22/16 following admission for altered mental status secondary to urinary tract infection. Patient does have a chronic Reinoso catheter. Patient states he just doesn't feel well but is unable to give specifics. He denies any fever , chills, lightheadedness, vision changes, nausea, vomiting, chest pain, shortness of breath, abdominal pain, diarrhea or constipation. He reports that his appetite has been good. He states the Reinoso catheter has not been changed since his discharge from our facility. He is oriented to self and is able to tell me the correct year. He is confused as to his location, the month and answered incorrectly that [facility] was president. In the ED, patient was found to have evidence of urinary tract infection and was given Rocephin and 3L of fluid. Review of Systems Except as stated in HPI: all other systems reviewed are Neg Past Family Social History Past Medical History Rheumatoid arthritis Multiple sclerosis left upper extremity and left lower extremity are flaccid Hypertension Skin cancer Trigeminal neuralgia status post 6 procedures Urinary retention with chronic indwelling Reinoso catheter Past Surgical History Appendectomy Cataract surgery Reported Medications Tamsulosin (Tamsulosin HCl) 0.4 Mg Cap 0.4 Mg PO HS Mapap (Acetaminophen) 500 Mg Tab 500 Mg PO Q6HR PRN Fiber-Caps (Calcium Polycarbophil) 625 Mg Tab 625 Mg PO QID Carbamazepine 200 Mg Tab 200 Mg PO QID Fluticasone Nasal [place] 50 Mcg/Act Naspr 1 Mcg EACH NARE BID 50 mcg/spray Methotrexate 2.5 Mg Tab 10 Mg PO WEDNESDAY Lisinopril 20 Mg Tab 20 Mg PO DAILY Folic Acid 800 Mcg Tab 800 Mcg PO DAILY Cymbalta DR (Duloxetine HCl) 60 Mg Capdr 60 Mg PO HS Cetirizine (Cetirizine HCl) 10 Mg Tab 10 Mg PO HS Aspirin Low Dose (Aspirin) 81 Mg Chew 81 Mg CHEW DAILY Allergies: Coded Allergies: No Known Allergies (Verified , 11/16/16) Active Ordered Medications Current Medications Medications (Trade) Dose Ordered Sig/Xiang Route Start Time Stop Time Status Last Admin Ceftriaxone Sodium 1000 mg/ Sodium Chloride 100 ml @ 200 mls/hr ONCE ONCE IV 12/20/16 18:00 12/20/16 18:29 Family History Reviewed with patient who denies any medical history of coronary artery disease , diabetes or cancer. Social History Patient denies any tobacco use or alcohol consumption. Patient denies any illicit drug use. Physical Exam Vital Signs Vital Signs Date Time Temp Pulse Resp B/P (MAP) Pulse Ox O2 Delivery O2 Flow Rate FiO2 12/20/16 14:51 124 18 127/80 (96) 97 Nasal Cannula 2.00 12/20/16 13:05 97 Nasal Cannula 2.00 12/20/16 13:02 97 Nasal Cannula 2.00 12/20/16 13:02 97 Nasal Cannula 2.00 12/20/16 12:40 98.7 126 18 141/78 (99) Physical Exam GENERAL: This is a frail elderly male patient, in no apparent distress. Awake and alert. Lying in hospital bed. SKIN: No rashes, ecchymoses or lesions. Cool and dry. HEAD: Atraumatic. Normocephalic. No temporal or scalp tenderness. EYES: Pupils equal round and reactive. Extraocular motions intact. No scleral icterus. No injection or drainage. ENT: Nose without bleeding or purulent drainage. Throat without erythema, tonsillar hypertrophy or exudate. Uvula midline. Airway patent. NECK: Trachea midline. No lymphadenopathy. Supple, nontender, no meningeal signs. CARDIOVASCULAR: Regular rate and rhythm without murmurs, gallops, or rubs. RESPIRATORY: Clear to auscultation. Breath sounds equal bilaterally. No wheezes , rales, or rhonchi. GASTROINTESTINAL: Abdomen soft, non-tender, nondistended. No hepato-splenomegaly , or palpable masses. No guarding. GENITOURINARY: Reinoso catheter in place with dark yellow urine noted in the bag. MUSCULOSKELETAL: Extremities without clubbing, cyanosis, or edema. No joint tenderness, effusion, or edema noted. No calf tenderness. NEUROLOGICAL: Awake and alert. Oriented to self but not place or time. Able to move right upper and lower extremity against gravity. Significant weakness noted in left upper and lower extremity with contractures noted. Normal speech. Able to move left upper extremity or left lower extremity Insight and judgment is limited Mood and behavior is somewhat appropriate Laboratory Laboratory Tests Test 12/20/16 12:50 12/20/16 14:20 12/20/16 15:15 White Blood Count 13.1 Red Blood Count 4.80 Hemoglobin 14.5 Hematocrit 43.3 Mean Corpuscular Volume 90.4 Mean Corpuscular Hemoglobin 30.3 Mean Corpuscular Hemoglobin Concent 33.6 Red Cell Distribution Width 16.1 Platelet Count 204 Mean Platelet Volume 7.9 Neutrophils (%) (Auto) 94.7 Lymphocytes (%) (Auto) 2.0 Monocytes (%) (Auto) 3.1 Eosinophils (%) (Auto) 0.0 Basophils (%) (Auto) 0.2 Neutrophils # (Auto) 12.4 Lymphocytes # (Auto) 0.3 Monocytes # (Auto) 0.4 Eosinophils # (Auto) 0.0 Basophils # (Auto) 0.0 CBC Comment DIFF FINAL Differential Comment Blood Urea Nitrogen 19 Creatinine 0.94 Random Glucose 92 Total Protein 7.5 Albumin 2.8 Calcium Level 9.4 Alkaline Phosphatase 75 Aspartate Amino Transf (AST/SGOT) 20 Alanine Aminotransferase (ALT/SGPT) 19 Total Bilirubin 0.5 Sodium Level 138 Potassium Level 4.5 Chloride Level 103 Carbon Dioxide Level 25.4 Anion Gap 10 Estimat Glomerular Filtration Rate 78 Lactic Acid Level 2.1 1.9 Urine Color DARK-YELLOW Urine Turbidity CLOUDY Urine pH 6.0 Urine Specific [place] 1.023 Urine Protein 100 Urine Glucose (UA) NEG Urine Ketones 80 Urine Occult Blood LARGE Urine Nitrite POS Urine Bilirubin NEG Urine Urobilinogen LESS THAN 2.0 Urine Leukocyte Esterase LARGE Urine RBC Urine WBC Urine WBC Clumps MANY Urine Bacteria MOD Urine Mucus MOD Microscopic Urinalysis Comment CULTURE INDICATED Date/Time Source Procedure Growth Status 12/20/16 13:10 Blood Peripheral Aerobic Blood Culture Pending Received 12/20/16 13:10 Blood Peripheral Anaerobic Blood Culture Pending Received 12/20/16 15:15 Urine Clean Catch Urine Culture Pending Received Result Diagram: 12/20/16 1250 12/20/16 1250 Caprini VTE Risk Assessment Caprini VTE Risk Assessment: Mod/High Risk (score >= 2) Caprini Risk Assessment Model Point Value = 1 Point Value = 2 Point Value = 3 Point Value = 5 Age 41-60 Minor surgery BMI > 25 kg/m2 Swollen legs Varicose veins or History of unexplained or recurrent spontaneous Oral contraceptives or hormone replacement Sepsis (< 1 month) Serious lung disease, including pneumonia (< 1 month) Abnormal pulmonary function Acute myocardial infarction Congestive heart failure (< 1 month) History of inflammatory bowel disease Medical patient at bed rest Age 61-74 Arthroscopic surgery Major open surgery (> 45 min) Laparoscopic surgery (> 45 min) Malignancy Confined to bed (> 72 hours) Immobilizing plaster cast Central venous access Age >= 75 History of VTE Family history of VTE Factor V Leiden Prothrombin [id number] Lupus anticoagulant Anticardiolipin antibodies Elevated serum homocysteine Heparin-induced thrombocytopenia Other congenital or acquired thrombophilia Stroke (< 1 month) Elective arthroplasty Hip, pelvis, or leg fracture Acute spinal cord injury (< 1 month) Prophylaxis Regimen Total Risk Factor Score Risk Level Prophylaxis Regimen 0-1 Low Early ambulation 2 Moderate Order ONE of the following: *Sequential Compression Device (SCD) *Heparin 5000 units SQ BID 3-4 Higher Order ONE of the following medications: *Heparin 5000 units SQ TID *Enoxaparin/Lovenox 40 mg SQ daily (WT < 150 kg, CrCl > 30 mL/min) *Enoxaparin/Lovenox 30 mg SQ daily (WT < 150 kg, CrCl > 10-29 mL/min) *Enoxaparin/Lovenox 30 mg SQ BID (WT < 150 kg, CrCl > 30 mL/min) AND/OR *Sequential Compression Device (SCD) 5 or more Highest Order ONE of the following medications: *Heparin 5000 units SQ TID (Preferred with Epidurals) *Enoxaparin/Lovenox 40 mg SQ daily (WT < 150 kg, CrCl > 30 mL/min) *Enoxaparin/Lovenox 30 mg SQ daily (WT < 150 kg, CrCl > 10-29 mL/min) *Enoxaparin/Lovenox 30 mg SQ BID (WT < 150 kg, CrCl > 30 mL/min) AND *Sequential Compression Device (SCD) Assessment and Plan Assessment and Plan 76yr old male with PMHX significant for RA and MS who is presenting from [facility] to [facility] ED due to altered mental status. Patient meets severe sepsis criteria with white count of 13.1, heart rate 124 and lactic acid of 2.1 with a source of urinary tract infection Hx of MS, neurogenic bladder, recurrent UTIs - Patient treated with IV Rocephin and fluids in the ED - Repeat lactic acid 1.9 - Chest x-ray personally interpreted revealing 2 cm right upper lobe nodule, CT scan recommended for further evaluation. CT scan 10/22 reviewed, recommended follow-up noncontrast CT in 3-4 weeks if not resolved. Noncontrast CT of the chest ordered. - Continue IV fluid - IV cefepime and Vancomycin. Monitor creatinine. - continuous cardiac monitoring - Monitor white count - Follow up on urine culture and blood culture results - change reinoso Metabolic encephalopathy - Secondary to sepsis/UTI - Treat underlying cause as above. - PT/OT eval/tx Abnormal EKG - EKG personally reviewed, T wave abnormalities which appear new - no cardiac complaints - trend cardiac enzymes/EKGs - continuous cardiac monitoring MS/trigeminal neuralgia - appears stable at this time - Resume home medications once med rec complete Hypertension - Will resume home medications once med rec completed - monitor BP DVT prophylaxis - Lovenox Physical therapy and occupational therapy to eval and treat The exam, history, and the medical decision-making described in the above note were completed with the assistance of the mid-level provider. I reviewed and agree with the findings presented. I attest that I had a [id number] encounter with the patient on the same day, and personally performed and documented my assessment and findings in the medical record. The services are ordered in accordance with Medicare regulations or non- Medicare payer requirements, as applicable. In the case of services not specified as inpatient-only, they are appropriately provided as inpatient services in accordance with the 2-midnight benchmark. Code Status FULL CODE Discussed Condition With Dr. Aguilar, patient, Dr. Grieper Physician Certification 2 Midnight Certification Type: Admission for Inpatient Services Order for Inpatient Services The services are ordered in accordance with Medicare regulations or non- Medicare payer requirements, as applicable. In the case of services not specified as inpatient-only, they are appropriately provided as inpatient services in accordance with the 2-midnight benchmark. Estimated LOS (days): 3 3 days is the estimated time the patient will need to remain in the hospital, assuming treatment plan goals are met and no additional complications. Post-Hospital Plan: [facility] Damari Villareal Dec 20, 2016 18:06 Andry Mcwilliams DO Dec 20, 2016 18:59
[2016-12-20] MEDS ORDERED: MAGNESIUM HYDROXIDE SUSP 30 ML CUP PO PRN ×2 (18:30→19:30)
[2016-12-20] MEDS ORDERED: LACTULOSE SYRUP 20 GM/30 ML CUP PO PRN ×2 (18:30→19:30)
[2016-12-20] MEDS ORDERED: NALOXONE HCL 0.4 MG/ML AMP IV PUSH PRN ×2 (18:30→19:30)
[2016-12-20] MEDS ORDERED: BISACODYL 10 MG SUPP RECTAL PRN ×2 (18:30→19:30)
[2016-12-20] MEDS ORDERED: ACETAMINOPHEN 325 MG TAB PO PRN ×3 (18:30→19:30)
[2016-12-20] MEDS ORDERED: SODIUM CHLORIDE 0.9% FLUSH 10 ML FLUSH IV FLUSH PRN ×2 (18:30→19:30)
[2016-12-20] MEDS ORDERED: SENNOSIDES 8.6 MG TAB PO PRN ×2 (18:30→19:30)
[2016-12-20] MEDS ORDERED: oxyCODONE/ACETAMINOPHEN 5 MG/325 MG TAB PO PRN (19:30)
[2016-12-20] MEDS ORDERED: MORPHINE SULFATE 4 MG/ML INJ IV PUSH PRN ×2 (19:30)
[2016-12-20] MEDS ORDERED: METHOTREXATE 2.5 MG TAB PO SCH (19:30)
[2016-12-20] MEDS ORDERED: PROCHLORPERAZINE 25 MG SUPP RECTAL PRN (19:30)
[2016-12-20] MEDS ORDERED: oxyCODONE/ACETAMINOPHEN 10 MG/325 MG TAB PO PRN (19:30)
--- NOTE | 2016-12-20 19:40 | RADRPT ---
EXAM DATE/TIME: 12/20/2016 19:08 [place] COMPARISON: No previous studies available for comparison. INDICATIONS : Abnormal chest x-ray, evaluate mass. RADIATION DOSE: 5.81 CTDIvol (mGy) MEDICAL HISTORY : Cardiovascular disease. Rheumatoid arthritis. Hypertension. Skin cancer. SURGICAL HISTORY : None. ENCOUNTER: Initial ACUITY: 1 day PAIN SCALE: 0/10 LOCATION: chest TECHNIQUE: Volumetric scanning of the chest was performed. Using automated exposure control and adjustment of t he mA and/or kV according to patient size, radiation dose was kept as low as reasonably achievable to obtain optimal diagnostic quality images. DICOM format image data is available electronically for r eview and comparison. Follow-up recommendations for detected pulmonary nodules are based at a minimum on nodule size and pa tient risk factors according to Fleischner Society Guidelines. FINDINGS: LUNGS: A 2 cm spiculated mass is identified in the right upper lobe at the level the claudette. Mild bibasilar airspace disease is seen along the posterior pleural margin of both lower lobes. No other significant parenchymal abnormality is identified. PLEURAE: There is no pleural thickening or pleural effusion. MEDIASTINUM: The heart and great vessels demonstrate no acute abnormality. There is no mediastinal or hilar lymph adenopathy. AXILLAE: Within normal limits. No lymphadenopathy. MUSCULOSKELETAL: Within normal limits for patient age. MISCELLANEOUS: The visualized upper abdominal organs demonstrate no acute abnormality. CONCLUSION: 1. 2.1 cm spiculated mass right upper lobe characteristic of bronchogenic carcinoma. 2. Mild bibasilar airspace disease. 3. No evidence of hilar or mediastinal lymphadenopathy or mass. Rafi Santos MD on December 20, 2016 at 19:35 Board Certified Radiologist. This report was verified electronically.
[2016-12-20 20:00] VITALS: BP 122/61; PULSE 109; RESP 18; TEMP 99.1; O2SAT 94; O2SAT 98
[2016-12-20] MEDS ORDERED: ENOXAPARIN SODIUM 40 MG/0.4 ML SYRINGE SQ SCH (20:00)
[2016-12-20] MEDS ORDERED: carBAMazepine 200 MG TAB PO SCH (21:00)
[2016-12-20] MEDS: SODIUM CHLORIDE 0.9% FLUSH 10 ML FLUSH IV FLUSH SCH ×2 (21:00)
[2016-12-20] MEDS: DOCUSATE SODIUM 50 MG/SENNA 8.6 MG TAB PO SCH ×2 (21:00→21:42)
[2016-12-20] MEDS: CEFEPIME INJ 2,000 MG in SODIUM CHLORIDE 0.9% INJ 100 ML IV SCH (21:27)
[2016-12-20] MEDS: SODIUM CHLOR 0.9% 1000 ML INJ 1,000 ML IV SCH (21:28)
[2016-12-20 21:31] VITALS: BP 151/68; PULSE 109; RESP 18; TEMP 100.7; O2SAT 98
[2016-12-20] MEDS: TAMSULOSIN HCL 0.4 MG CAP PO SCH (21:42)
[2016-12-20] MEDS: CETIRIZINE HCL 10 MG TAB PO SCH (21:42)
[2016-12-20] MEDS: VANCOMYCIN INJ 1,000 MG in SODIUM CHLOR 0.9% 250 ML INJ 250 ML IV SCH (21:46)
[2016-12-20] MEDS ORDERED: ENOXAPARIN SODIUM 80 MG/0.8 ML SYRINGE SQ ONE (22:15)
[2016-12-20] MEDS: FLUTICASONE PROPIONATE 50 MCG/ACT 16 GM NASAL SPRAY EACH NARE SCH (22:15)
[2016-12-20] MEDS: DULoxetine HCl DR 60 MG CAP PO SCH (22:15)
[2016-12-20] MEDS: CALCIUM POLYCARBOPHIL 625 MG TAB PO SCH (22:15)
[2016-12-20 22:28] VITALS: PULSE 104
[2016-12-21] VITALS (7 sets, daily range): BP systolic 115–158; BP diastolic 52–74; PULSE 88–100; RESP 16–20; TEMP 96–98.6; O2SAT 96–100
[2016-12-21 02:38] LABS: HEMATOCRIT 33.6 % (39.0-51.0); MEAN CELL VOLUME 90.9 FL (80.0-100.0); MEAN CORPUSCULAR HEMOGLOBIN 30.7 PG (27.0-34.0); MEAN CORPUSCULAR HGB CONC 33.8 % (32.0-36.0); PLATELET COUNT 180 TH/MM3 (150-450); RED CELL DISTRIBUTION WIDTH 16.2 % (11.6-17.2); WHITE BLOOD COUNT 10.6 TH/MM3 (4.0-11.0)
[2016-12-21 02:47] LABS: HEMO FLAGS AUTO DIFF
[2016-12-21 03:11] LABS: BANDS 3 % (0-6); NEUTROPHIL # MANUAL DIFF 9.5 TH/MM3 (1.8-7.7); POLYS (SEG NEUTROPHILS) 87 % (16-70); WBC DIFF SAMPLE 100
[2016-12-21 03:12] LABS: PLATELET ESTIMATE SMEAR NORMAL (NORMAL); PLATELET MORPHOLOGY NORMAL (NORMAL); SCAN/DIFF FINAL DIFF MANUAL
[2016-12-21 03:15] LABS: ALKALINE PHOSPHATASE 56 U/L (45-117); ALT (GPT) 12 U/L (12-78); ANION GAP 12 MEQ/L (5-15); AST (GOT) 14 U/L (15-37); BICARBONATE 19.3 MEQ/L (21.0-32.0); BLOOD UREA NITROGEN 20 MG/DL (7-18); CHLORIDE 113 MEQ/L (98-107); FREE T4 1.08 NG/DL (0.76-1.46); GLOMERULAR FILTRATION RATE 137 ML/MIN (>89); MAGNESIUM 1.9 MG/DL (1.5-2.5); POTASSIUM 3.9 MEQ/L (3.5-5.1); SODIUM (NA) 144 MEQ/L (136-145); TOTAL BILIRUBIN ADULT 0.3 MG/DL (0.2-1.0)
[2016-12-21] MEDS: SODIUM CHLOR 0.9% 1000 ML INJ 1,000 ML IV SCH ×3 (04:38→22:33)
[2016-12-21] MEDS: CEFEPIME INJ 2,000 MG in SODIUM CHLORIDE 0.9% INJ 100 ML IV SCH (08:32)
[2016-12-21] MEDS: LISINOPRIL 20 MG TAB PO SCH (08:32)
[2016-12-21] MEDS: FOLIC ACID 1 MG TAB PO SCH (08:32)
[2016-12-21] MEDS: DOCUSATE SODIUM 50 MG/SENNA 8.6 MG TAB PO SCH ×3 (08:32→22:31)
[2016-12-21] MEDS: ASPIRIN 81 MG CHEW TAB CHEW SCH (08:32)
[2016-12-21] MEDS: ENOXAPARIN SODIUM 40 MG/0.4 ML SYRINGE SQ SCH ×2 (08:33→22:32)
[2016-12-21] MEDS: SODIUM CHLORIDE 0.9% FLUSH 10 ML FLUSH IV FLUSH SCH ×4 (08:33→22:32)
[2016-12-21] MEDS: FLUTICASONE PROPIONATE 50 MCG/ACT 16 GM NASAL SPRAY EACH NARE SCH ×2 (08:33→22:32)
[2016-12-21] MEDS: CALCIUM POLYCARBOPHIL 625 MG TAB PO SCH ×4 (08:35→22:31)
--- NOTE | 2016-12-21 09:30 | HHI.PR ---
Subjective Remarks Patien tin bed, appears in nad. Says he feels tired howeveer better than yesterday .Eating better. No fever ro chills overnight. No n/v/d/c. Objective Vitals Vital Signs Date Time Temp Pulse Resp B/P (MAP) Pulse Ox O2 Delivery O2 Flow Rate FiO2 12/21/16 09:23 99 Nasal Cannula 2.00 12/21/16 08:00 96.7 100 16 138/64 (88) 99 12/21/16 04:41 98.6 90 18 115/52 (73) 98 12/21/16 01:06 98.3 90 20 129/61 (83) 96 12/20/16 22:28 104 12/20/16 21:31 100.7 109 18 151/68 (95) 98 12/20/16 20:53 12/20/16 20:00 99.1 109 18 122/61 (81) 98 Nasal Cannula 4.00 12/20/16 20:00 94 Nasal Cannula 3.00 12/20/16 14:51 124 18 127/80 (96) 97 Nasal Cannula 2.00 12/20/16 13:05 97 Nasal Cannula 2.00 12/20/16 13:02 97 Nasal Cannula 2.00 12/20/16 13:02 97 Nasal Cannula 2.00 12/20/16 12:40 98.7 126 18 141/78 (99) I/O 12/20/16 12/20/16 12/20/16 12/21/16 12/21/16 12/21/16 07:00 15:00 23:00 07:00 15:00 23:00 Intake Total 3200 ml 1240 ml Output Total 400 ml Balance 3200 ml 840 ml Intake Oral 240 ml IV Total 3200 ml 1000 ml Output Urine Total 400 ml Result Diagram: 12/21/16 0229 12/21/16 0229 Imaging Last Impressions Chest X-Ray 12/20/16 1243 Signed Impressions: Service Date/Time: Tuesday, December 20, 2016 13:25 - CONCLUSION: 1. Cardiomegaly. No acute pulmonary disease. 2 cm right upper lobe nodule. CT scan is recommended for further evaluation if clinically indicated. Manuel Stockton MD Chest CT 12/20/16 0000 Signed Impressions: Service Date/Time: Tuesday, December 20, 2016 19:08 - CONCLUSION: 1. 2.1 cm spiculated mass right upper lobe characteristic of bronchogenic carcinoma. 2. Mild bibasilar airspace disease. 3. No evidence of hilar or mediastinal lymphadenopathy or mass. Rafi Santos MD Objective Remarks GENERAL: This is a frail elderly male patient, in no apparent distress. Awake and alert. Lying in hospital bed. CARDIOVASCULAR: Regular rate and rhythm without murmurs, gallops, or rubs. RESPIRATORY: Clear to auscultation. Breath sounds equal bilaterally. No wheezes , rales, or rhonchi. GASTROINTESTINAL: Abdomen soft, non-tender, nondistended. No hepato-splenomegaly , or palpable masses. No guarding. GENITOURINARY: Reinoso catheter in place with dark yellow urine noted in the bag. MUSCULOSKELETAL: Extremities without clubbing, cyanosis, or edema. No joint tenderness, effusion, or edema noted. No calf tenderness. NEUROLOGICAL: Awake and alert. Oriented to self but not place or time. Able to move right upper and lower extremity against gravity. Significant weakness noted in left upper and lower extremity with contractures noted. Normal speech. Able to move left upper extremity or left lower extremity Insight and judgment is limited Mood and behavior is somewhat appropriate A/P Assessment and Plan 76yr old male with PMHX significant for RA and MS who is presenting from [facility] ED due to altered mental status. Patient meets severe sepsis criteria with white count of 13.1, heart rate 124 and lactic acid of 2.1 with a source of urinary tract infection on admission. Bacteremia. Pseudomonas aeruginosa, complicated UTI Pseudomonas aeruginosa Recent UTI, Providencia, PSAE. However PSAE R cipro and no oral options. Consult ID specialist appreciate recommendations Patient with MS with neurogenic bladder and risk of recurrent UTIs - DC IV Rocephin . - Repeat lactic acid is 1.9 - Chest x-ray personally interpreted revealing 2 cm right upper lobe nodule, CT scan recommended for further evaluation. CT scan 10/22 reviewed, recommended follow-up noncontrast CT in 3-4 weeks if not resolved. Noncontrast CT of the chest ordered. - Continue IV fluid - start meropenem (suspect MDRO, previously known R FQ, zosyn, recent tx failure vs new infx on cefepime) - anticipate dc on IV abx per ID sepcialist appreciate recommendations. Monitor creatinine. - continuous cardiac monitoring - Monitor white count - Follow up on urine culture and blood culture results - change reinoso Metabolic encephalopathy, improving - Secondary to sepsis/UTI - Treat underlying cause as above. - PT/OT eval/tx MS/trigeminal neuralgia - appears stable at this time - Resume home medications once med rec complete Hypertension - Will resume home medications once med rec completed - monitor BP New 2.1 cm spiculated mass right upper lobe characteristic of bronchogenic carcinoma will consult pulm ? NSTEMI - roller engraver consulted, appreciate recommendation contonue medical management, 2D ECHO is normal DVT prophylaxis - Lovenox Discussed with the patient, nurse, ID specialist Amparo Nuñez MD Dec 21, 2016 09:30
--- NOTE | 2016-12-21 09:38 | MB ---
cc: KIMO HESS DATE OF CONSULTATION: 12/21/2016 DATE OF : 1940 REASON FOR CONSULTATION Elevated troponin. HISTORY OF PRESENT ILLNESS 76-year-old male with past medical history significant for rheumatoid arthritis , multiple sclerosis, hypertension, urinary retention with chronic indwelling Rosa catheter, that presented to the hospital with altered mental status/ confusion. The patient has been consulted to cardiology because of elevated troponin. Upon admission here he has been found to have a UTI and a right upper lung mass characteristic of bronchogenic carcinoma. The patient denies any chest pain, shortness of breath, palpitations, syncope, PND or leg edema. Cardiology has been consulted because of elevated troponin. REVIEW OF SYSTEMS The review of systems is negative except for what is mentioned in the HPI. PAST MEDICAL HISTORY 1. Rheumatoid arthritis. 2. Multiple sclerosis. 3. Hypertension. 4. Skin cancer. 5. Trigeminal neuralgia. 6. Urinary retention with chronic indwelling Rosa catheter. PAST SURGICAL HISTORY 1. Appendectomy. 2. Cataract surgery. MEDICATIONS Cardiac home medications: 1. Aspirin 81 mg p.o. daily. 2. Lisinopril 20 mg p.o. daily. ALLERGIES No known drug allergies. FAMILY HISTORY Noncontributory. SOCIAL HISTORY Denies alcohol abuse, tobacco consumption or illicit drug use. PHYSICAL EXAMINATION VITAL SIGNS: Temperature 98.6, coming down from 100.7. RR 18, HR 90, BP 115/ 52. O2 sat 98% on 4L NC GENERAL: He is awake, alert, oriented x3, in no acute distress. NECK: No JVD. No carotid bruits. HEART: Regular rate and rhythm. No murmurs, rubs or gallops. LUNGS: Poor respiratory effort bilaterally. No wheezes or rhonchi. ABDOMEN: Benign. EXTREMITIES: No cyanosis or edema. Pulses throughout. LABORATORY CBC: Hemoglobin 11, hematocrit 33, platelet count 180. Chemistry: Sodium 144, potassium 3.9, BUN 20, creatinine 0.58, troponin 1.06 and 0.84. TSH 0.293. Urinalysis positive for UTI. IMAGING Chest x-ray: No acute cardiopulmonary process. Chest CT shows a 2.1 cm spiculated mass in the right upper lobe characteristic of bronchogenic carcinoma. EKG: Sinus rhythm with a left axis deviation, right bundle branch block and ST changes suggestive of ischemia in the lateral leads. ASSESSMENT AND PLAN 76-year-old male admitted with altered mental status in the setting of an urinary tract infection. The patient has no cardiovascular complaints, however , he has been found to have a troponin of 1 trending down to 0.84 and the EKG showing some T-wave inversions in the lateral leads suggestive of ischemia. The patient denies any cardiovascular complaints. He has remained hemodynamically stable. He spiked a fever yesterday and does have an active infectious process. Also h was a new diagnosis of lung mass, thus I would not recommend any invasive cardiac work-up at this time, optimization of medical therapy for coronary artery disease. Continue aspirin, CARLOS inhibitor and start on beta-rishi, statin and long-acting acting nitrate as tolerated. Get echocardiogram. Thank you for the opportunity to participate in the care of this patient. Will be available on a p.r.n. basis for any other questions or concerns. MD LUCINDA Guzman/BT /9:02 AM /9:24 AM MER
[2016-12-21] MEDS: VANCOMYCIN INJ 1,000 MG in SODIUM CHLOR 0.9% 250 ML INJ 250 ML IV SCH (10:03)
--- NOTE | 2016-12-21 14:02 | ECHRPT ---
Indication: CARDIOMYOPATHY CONCLUSIONS Normal left ventricular size. Wall thickness is normal. The left ventricular systolic function is low normal with an estimated ejection fraction in the rang e of 50- 55%. Trace mitral valve regurgitation. Cannot rule out a bicuspid aortic valve or trileaflet valve with partially fused commissure. Mild aortic valve regurgitation. There is mild tricuspid valve regurgitation. BP: 138 / 64 HR: Rhythm: Sinus MEASUREMENTS (Male / Female) Normal Values Technical Quality:Fair 2D ECHO LV Diastolic Diameter PLAX 4.5 cm 4.2 - 5.9 / 3.9 - 5.3 cm LV Systolic Diameter PLAX 3.5 cm IVS Diastolic Thickness 0.9 cm 0.6 - 1.0 / 0.6 - 0.9 cm LVPW Diastolic Thickness 0.9 cm 0.6 - 1.0 / 0.6 - 0.9 cm LV Relative Wall Thickness 0.4 LVOT Diameter 2.6 cm Aortic Root Diameter 3.6 cm LA Systolic Diameter LX 2.9 cm 3.0 - 4.0 / 2.7 - 3.8 cm M-MODE AV Cusp Separation MM 2.3 cm DOPPLER AV Peak Velocity 144.5 cm/s AV Peak Gradient 8.4 mmHg AV Mean Gradient 4.5 mmHg AV Velocity Time Integral 26.2 cm AI Peak Velocity 428.0 cm/s AI Peak Gradient 73.3 mmHg AI Pressure Half Time 482.0 ms LVOT Peak Velocity 100.0 cm/s LVOT Peak Gradient 4.0 mmHg LVOT Velocity Time Integral 17.6 cm AV Area Cont Eq vti 3.6 cm AV Area Cont Eq pk 3.7 cm Mitral E Point Velocity 88.4 cm/s Mitral A Point Velocity 86.4 cm/s Mitral E to A Ratio 1.0 LV E' Lateral Velocity 8.1 cm/s Mitral E to LV E' Lateral Ratio 10.9 LV E' Septal Velocity 5.6 cm/s Mitral E to LV E' Septal Ratio 15.9 TR Peak Velocity 262.0 cm/s TR Peak Gradient 27.5 mmHg Right Atrial Pressure 10.0 mmHg Pulmonary Artery Systolic Pressu 37.5 mmHg Right Ventricular Systolic Press 37.5 mmHg PV Peak Velocity 51.1 cm/s PV Peak Gradient 1.0 mmHg FINDINGS LEFT VENTRICLE Normal left ventricular size. Wall thickness is normal. The left ventricular systolic function is low normal with an estimated ejection fraction in the rang e of 50- 55%. MITRAL VALVE Trace mitral valve regurgitation. AORTIC VALVE Cannot rule out a bicuspid aortic valve or trileaflet valve with partially fused commissure. Mild aortic valve regurgitation. TRICUSPID VALVE There is mild tricuspid valve regurgitation. Tino Rodriguez MD (Electronically Signed) Final Date:21 December 2016 14:01
--- NOTE | 2016-12-21 15:10 | PD.ID.CON ---
History of Present Illness Service ID Consult Requested By Dr Nuñez Reason for Consult Bactermia, GNR Primary Care Physician Keagan Cagle MD Diagnoses: History of Present Illness 76 yo male known to me from his last month admission: pt with MS, neurogenic bladder and chronic reinoso use, he was admitted last monthe for PSAE/ [facility] UTI and was d/c'd on cefpeime which he had completed He was admitted yada after passing out Pt deniees fevers, chills or pain but remembers being confused prior to LOC episode He was founfd to have elevated troponine and cardiology was consulted Pt had low grade fever of 100.7 and leukocytosis (ANC 12K) on admission UA abnormal with pyuria His reinoso was changed in ER Blood and urine clx are growing PSAE (blood low grade, 1/4 bottles) He is again on cefepime Last isolate of PSE was R to zosyn, FQ, ceftazidime CXR showed no acute pulmonary disease and a 2 cm right upper lobe nodule. CT scan showed 2.1 cm spiculated mass right upper lobe characteristic of bronchogenic carcinoma Review of Systems Genitourinary: COMPLAINS OF: Urinary incontinence Neurologic: COMPLAINS OF: Abnormal gait (bed ridden), Localized weakness Psychiatric: COMPLAINS OF: Confusion Except as stated in HPI: all other systems reviewed are Neg Past Family Social History Allergies: Coded Allergies: No Known Allergies (Verified , 11/16/16) Past Medical History RA HTN MS, advanced Skin cancer Trigeminal neuralgia s/p 6 procedures Past Surgical History Appendectomy Cataract surgery Active Ordered Medications Medications where reviewed in EMR Antibiotics Include: cefepime, vancomycin Family History reviewed Non-Contributory. Social History resides in alf The patient denies smoking or drinking. Physical Exam Vital Signs Vital Signs Date Time Temp Pulse Resp B/P (MAP) Pulse Ox O2 Delivery O2 Flow Rate FiO2 12/21/16 12:00 97.5 89 17 145/67 (93) 99 12/21/16 09:23 99 Nasal Cannula 2.00 12/21/16 08:00 96.7 100 16 138/64 (88) 99 12/21/16 04:41 98.6 90 18 115/52 (73) 98 12/21/16 01:06 98.3 90 20 129/61 (83) 96 12/20/16 22:28 104 12/20/16 21:31 100.7 109 18 151/68 (95) 98 12/20/16 20:53 12/20/16 20:00 99.1 109 18 122/61 (81) 98 Nasal Cannula 4.00 12/20/16 20:00 94 Nasal Cannula 3.00 Physical Exam CONSTITUTIONAL/GENERAL: This is an adequately nourished patient, in no apparent distress. TUBES/LINES/DRAINS: SKIN: No jaundice, rashes, or lesions. Skin temperature appropriate. Not diaphoretic. HEAD: Atraumatic. Normocephalic. EYES: Pupils equal and round and reactive. Extraocular motions intact. No scleral icterus. No injection or drainage. Fundi not examined. ENT: Hearing grossly normal. Nose without bleeding or purulent drainage. Oral mucosae without visible erythema, exudates, masses, or lesions. POor dentitions NECK: Trachea midline. Supple, nontender. CARDIOVASCULAR: Regular rate and rhythm without murmurs, gallops, or rubs. No JVD. Peripheral pulses symmetric. RESPIRATORY/CHEST: Symmetric, unlabored respirations. Clear to auscultation. Breath sounds equal bilaterally. No wheezes, rales, or rhonchi. GASTROINTESTINAL: Abdomen soft, non-tender, nondistended. No hepato-splenomegaly , or palpable masses. No guarding. Bowel sounds present. GENITOURINARY: Without palpable bladder distension. Reinoso catheter in place. with cloudy yelllwo urine MUSCULOSKELETAL: Extremities without clubbing, cyanosis, or edema. No mottling or clubbing. NEUROLOGICAL: Awake and alert. Motor markedly decreased in LUE and BLE. Follows commands. Speech slightly disarthric. PSYCHIATRIC: calm adn cooperative Laboratory Laboratory Tests Test 12/20/16 15:15 12/20/16 20:15 12/21/16 02:29 Urine Color DARK-YELLOW Urine Turbidity CLOUDY Urine pH 6.0 Urine Specific [place] 1.023 Urine Protein 100 Urine Glucose (UA) NEG Urine Ketones 80 Urine Occult Blood LARGE Urine Nitrite POS Urine Bilirubin NEG Urine Urobilinogen LESS THAN 2.0 Urine Leukocyte Esterase LARGE Urine RBC Urine WBC Urine WBC Clumps MANY Urine Bacteria MOD Urine Mucus MOD Microscopic Urinalysis Comment CULTURE INDICATED Troponin I 1.06 0.84 Thyroid Stimulating Hormone 3rd Gen 0.293 0.361 White Blood Count 10.6 Red Blood Count 3.70 Hemoglobin 11.4 Hematocrit 33.6 Mean Corpuscular Volume 90.9 Mean Corpuscular Hemoglobin 30.7 Mean Corpuscular Hemoglobin Concent 33.8 Red Cell Distribution Width 16.2 Platelet Count 180 Mean Platelet Volume 7.9 CBC Comment AUTO DIFF Differential Total Cells Counted 100 Neutrophils % (Manual) 87 Band Neutrophils % 3 Lymphocytes % 4 Monocytes % 6 Neutrophils # (Manual) 9.5 Differential Comment FINAL DIFF MANUAL Platelet Estimate NORMAL Platelet Morphology Comment NORMAL Red Cell Morphology Comment NORMAL Blood Urea Nitrogen 20 Creatinine 0.58 Random Glucose 80 Total Protein 5.7 Albumin 2.0 Calcium Level 7.6 Phosphorus Level 2.9 Magnesium Level 1.9 Alkaline Phosphatase 56 Aspartate Amino Transf (AST/SGOT) 14 Alanine Aminotransferase (ALT/SGPT) 12 Total Bilirubin 0.3 Sodium Level 144 Potassium Level 3.9 Chloride Level 113 Carbon Dioxide Level 19.3 Anion Gap 12 Estimat Glomerular Filtration Rate 137 Free Thyroxine 1.08 Date/Time Source Procedure Growth Status 12/21/16 11:46 Blood Peripheral Aerobic Blood Culture Pending Received 12/21/16 11:46 Blood Peripheral Anaerobic Blood Culture Pending Received 12/20/16 15:15 Urine Clean Catch Urine Culture - Preliminary Pseudomonas Species Resulted Result Diagram: 12/21/16 0229 12/21/16 0229 Imaging Last Impressions Chest X-Ray 12/20/16 1243 Signed Impressions: Service Date/Time: Tuesday, December 20, 2016 13:25 - CONCLUSION: 1. Cardiomegaly. No acute pulmonary disease. 2 cm right upper lobe nodule. CT scan is recommended for further evaluation if clinically indicated. Manuel Stockton MD Chest CT 12/20/16 0000 Signed Impressions: Service Date/Time: Tuesday, December 20, 2016 19:08 - CONCLUSION: 1. 2.1 cm spiculated mass right upper lobe characteristic of bronchogenic carcinoma. 2. Mild bibasilar airspace disease. 3. No evidence of hilar or mediastinal lymphadenopathy or mass. Rafi Santos MD Assessment and Plan Assessment and Plan MS with neurogenic bladder Sepsis, PSAE COmplicated UTI, PSAE, recurrent : likely the source of sepsis - new infx vs tx failure Recent UTI, Prov[facility], PSAE - PSAE R cipro, no oral options New 2.1 cm spiculated mass right upper lobe characteristic of bronchogenic carcinoma ? 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
[2016-12-21] MEDS ORDERED: MISCELLANEOUS PHARMACY INFORMATION XX PRN (15:15)
[2016-12-21] MEDS ORDERED: ASP: Path resistant to other antimicrobials, culture proven PRN (15:15)
[2016-12-21] MEDS: MEROPENEM INJ 1,000 MG in SODIUM CHLORIDE 0.9% INJ 100 ML IV SCH ×2 (16:02→22:33)
--- NOTE | 2016-12-21 22:05 | RADRPT ---
EXAM DATE/TIME: 12/21/2016 21:43 [facility] COMPARISON: No previous studies available for comparison. INDICATIONS : Neck pain. RADIATION DOSE: 14.07 CTDIvol (mGy) MEDICAL HISTORY : Rheumatoid arthritis. Hypertension. Skin cancer. SURGICAL HISTORY : Appendectomy. ENCOUNTER: Initial ACUITY: 1 day PAIN SCORE: 5/10 LOCATION: neck TECHNIQUE: Volumetric scanning of the neck was performed. Using automated exposure control and adjustment of th e mA and/or kV according to patient size, radiation dose was kept as low as reasonably achievable to obtain optimal diagnostic quality images. DICOM format image data is available electronically for re view and comparison. FINDINGS: NASOPHARYNX: The nasopharyngeal airway has a normal configuration. No mucosal thickening or mass is seen. OROPHARYNX: The intrinsic muscles of the tongue are symmetric. The tonsillar pillars are intact. The prevertebr al soft tissues are not thickened. LARYNX: The supraglottic, glottic, and infraglottic structures are intact. PARAPHARYNGEAL: The parapharyngeal space is intact. SALIVARY GLANDS: The parotid and submandibular glands are intact. LYMPH NODES: No enlarged or necrotic-appearing nodes. THYROID: Homogeneous enhancement without evidence of nodule. BONES: Areas extensive degenerative change of the cervical spine inclusive of uncovertebral hypertrophy and lateral mass facet arthritic change with neural foraminal encroachment multilevel at L3-4 on the righ t, at L4-5 bilaterally and L5-S1 more prominent in the left than the right. CONCLUSION: Extensive degenerative changes of the cervical spine. Otherwise negative with no evidence of mass or adenopathy and soft tissues are negative. Deniz Castro MD on December 21, 2016 at 21:56 Board Certified Radiologist. This report was verified electronically.
--- NOTE | 2016-12-21 22:08 | EKG ---
Date Performed: 12/21/2016 Time Performed: 00:06:08 PTAGE: 76 years EKG: Sinus rhythm Left axis deviation RBBB with left anterior fascicular block Possible left ventricular hypertrophy I nferior/lateral ST-T changes Abnormal ECG Compared to prior tracing no significant change DOCTOR: Dianne Roe Interpretating Date/Time 12/21/2016 22:07:04
--- NOTE | 2016-12-21 22:14 | EKG ---
Date Performed: 12/20/2016 Time Performed: 21:19:57 PTAGE: 76 years EKG: SINUS TACHYCARDIA RIGHT BUNDLE BRANCH BLOCK LEFT ANTERIOR FASCICULAR BLOCK MINIMAL VOLTAGE CRITERIA FOR LVH, CONSIDER NORMAL VARIANT POSSIBLE SEPTAL MYOCARDIAL INFARCTION , OF INDETERMINATE AG E MARKED T-WAVE ABNORMALITY ABNORMAL ECG PREVIOUS TRACING : 12/20/2016 13.10 Compared to prior tracing no significant change DOCTOR: Dianne Roe Interpretating Date/Time 12/21/2016 22:13:17
[2016-12-21] MEDS: METOPROLOL TARTRATE 25 MG TAB PO SCH (22:30)
[2016-12-21] MEDS: TAMSULOSIN HCL 0.4 MG CAP PO SCH (22:31)
[2016-12-21] MEDS: DULoxetine HCl DR 60 MG CAP PO SCH (22:31)
[2016-12-21] MEDS: CETIRIZINE HCL 10 MG TAB PO SCH (22:31)
--- NOTE | 2016-12-21 23:04 | EKG ---
Date Performed: 12/20/2016 Time Performed: 13:10:13 PTAGE: 76 years EKG: SINUS TACHYCARDIA RIGHT BUNDLE BRANCH BLOCK LEFT ANTERIOR FASCICULAR BLOCK LEFT VENTRICULAR HYPERTROPHY AND ST-T CHANGE ABNORMAL ECG PREVIOUS TRACING : 10/14/2016 00.11 Compared to the previous tracing RBBB with ST-T changes are present DOCTOR: Dianne Roe Interpretating Date/Time 12/21/2016 23:02:25
[2016-12-22] VITALS (7 sets, daily range): BP systolic 136–160; BP diastolic 71–82; PULSE 72–85; RESP 18–20; TEMP 96.2–97.6; O2SAT 97–99
[2016-12-22] MEDS: ONDANSETRON HCL 4 MG/2 ML VIAL IVP PRN (05:24)
[2016-12-22 06:31] LABS: AUTOMATED NEUTROPHIL # 6.9 TH/MM3 (1.8-7.7); BASOPHIL % 0.3 % (0.0-2.0); EOSINOPHIL # 0.1 TH/MM3 (0-0.4); EOSINOPHIL % 1.4 % (0.0-4.0); HEMATOCRIT 33.7 % (39.0-51.0); HEMO FLAGS DIFF FINAL; LYMPH % 6.2 % (9.0-44.0); LYMPHOCYTE # 0.5 TH/MM3 (1.0-4.8); MEAN CELL VOLUME 91.2 FL (80.0-100.0); MEAN CORPUSCULAR HEMOGLOBIN 30.6 PG (27.0-34.0); MEAN CORPUSCULAR HGB CONC 33.6 % (32.0-36.0); MONO % 6.8 % (0.0-8.0); NEUT % 85.3 % (16.0-70.0); PLATELET COUNT 156 TH/MM3 (150-450); RED BLOOD COUNT 3.69 MIL/MM3 (4.50-5.90); RED CELL DISTRIBUTION WIDTH 16.5 % (11.6-17.2); WHITE BLOOD COUNT 8.1 TH/MM3 (4.0-11.0)
[2016-12-22 07:02] LABS: BICARBONATE 19.2 MEQ/L (21.0-32.0); POTASSIUM 3.9 MEQ/L (3.5-5.1)
[2016-12-22] MEDS: METOPROLOL TARTRATE 25 MG TAB PO SCH ×2 (08:58→21:18)
[2016-12-22] MEDS: CALCIUM POLYCARBOPHIL 625 MG TAB PO SCH ×4 (08:58→21:18)
[2016-12-22] MEDS: FOLIC ACID 1 MG TAB PO SCH (08:58)
[2016-12-22] MEDS: ENOXAPARIN SODIUM 40 MG/0.4 ML SYRINGE SQ SCH ×2 (08:58→21:00)
[2016-12-22] MEDS: DOCUSATE SODIUM 50 MG/SENNA 8.6 MG TAB PO SCH ×2 (08:58→21:18)
[2016-12-22] MEDS: LISINOPRIL 20 MG TAB PO SCH (08:58)
[2016-12-22] MEDS: ATORVASTATIN 20 MG TAB PO SCH (08:59)
[2016-12-22] MEDS: ASPIRIN 81 MG CHEW TAB CHEW SCH (08:59)
[2016-12-22] MEDS: SODIUM CHLORIDE 0.9% FLUSH 10 ML FLUSH IV FLUSH SCH ×4 (09:00→21:20)
[2016-12-22] MEDS: FLUTICASONE PROPIONATE 50 MCG/ACT 16 GM NASAL SPRAY EACH NARE SCH ×2 (09:00→21:20)
[2016-12-22] MEDS: MEROPENEM INJ 1,000 MG in SODIUM CHLORIDE 0.9% INJ 100 ML IV SCH ×3 (09:08→23:45)
[2016-12-22] MEDS: SODIUM CHLOR 0.9% 1000 ML INJ 1,000 ML IV SCH ×2 (09:12→20:28)
--- NOTE | 2016-12-22 09:23 | HHI.PR ---
Subjective Remarks In bed, appears in nad. Denies any brizuela at this time. No n/v/d/c. Able to eat. No fever or chills./ Pain in his neck is fairly controlled. Objective Vitals Vital Signs Date Time Temp Pulse Resp B/P (MAP) Pulse Ox O2 Delivery O2 Flow Rate FiO2 12/22/16 04:51 96.2 82 20 155/76 (102) 97 12/22/16 00:00 96.7 78 20 156/74 (101) 97 12/21/16 20:00 96.1 94 20 154/69 (97) 97 12/21/16 16:00 96.0 88 18 158/74 (102) 100 12/21/16 12:00 97.5 89 17 145/67 (93) 99 I/O 12/21/16 12/21/16 12/21/16 12/22/16 12/22/16 12/22/16 07:00 15:00 23:00 07:00 15:00 23:00 Intake Total 1240 ml 350 ml 1700 ml 851 ml Output Total 400 ml 550 ml 500 ml Balance 840 ml 350 ml 1150 ml 351 ml Intake Oral 240 ml 600 ml IV Total 1000 ml 350 ml 1100 ml 851 ml Output Urine Total 400 ml 550 ml 500 ml # Bowel Movements 0 Result Diagram: 12/22/16 0550 12/22/16 0550 Imaging Last Impressions Neck CT 12/21/16 0000 Signed Impressions: Service Date/Time: Wednesday, December 21, 2016 21:43 - CONCLUSION: Extensive degenerative changes of the cervical spine. Otherwise negative with no evidence of mass or adenopathy and soft tissues are negative. Deniz Castro MD Chest X-Ray 12/20/16 1243 Signed Impressions: Service Date/Time: Tuesday, December 20, 2016 13:25 - CONCLUSION: 1. Cardiomegaly. No acute pulmonary disease. 2 cm right upper lobe nodule. CT scan is recommended for further evaluation if clinically indicated. Manuel Stockton MD Chest CT 12/20/16 0000 Signed Impressions: Service Date/Time: Tuesday, December 20, 2016 19:08 - CONCLUSION: 1. 2.1 cm spiculated mass right upper lobe characteristic of bronchogenic carcinoma. 2. Mild bibasilar airspace disease. 3. No evidence of hilar or mediastinal lymphadenopathy or mass. Rafi Santos MD Objective Remarks GENERAL: This is a frail elderly male patient, in no apparent distress. Awake and alert. Lying in hospital bed. CARDIOVASCULAR: Regular rate and rhythm without murmurs, gallops, or rubs. RESPIRATORY: Clear to auscultation. Breath sounds equal bilaterally. No wheezes , rales, or rhonchi. GASTROINTESTINAL: Abdomen soft, non-tender, nondistended. No hepato-splenomegaly , or palpable masses. No guarding. GENITOURINARY: Reinoso catheter in place with dark yellow urine noted in the bag. MUSCULOSKELETAL: Extremities without clubbing, cyanosis, or edema. No joint tenderness, effusion, or edema noted. No calf tenderness. NEUROLOGICAL: Awake and alert. Oriented to self but not place or time. Able to move right upper and lower extremity against gravity. Significant weakness noted in left upper and lower extremity with contractures noted. Normal speech. Able to move left upper extremity or left lower extremity Insight and judgment is limited Mood and behavior is somewhat appropriate A/P Assessment and Plan 76yr old male with PMHX significant for RA and MS who is presenting from senior living to [facility] ED due to altered mental status. Patient meets severe sepsis criteria with white count of 13.1, heart rate 124 and lactic acid of 2.1 with a source of urinary tract infection on admission. Bacteremia. Pseudomonas aeruginosa, complicated UTI Pseudomonas aeruginosa Recent UTI, Providencia, PSAE. However PSAE R cipro and no oral options. Consult ID specialist appreciate recommendations Patient with MS with neurogenic bladder and risk of recurrent UTIs - DC IV Rocephin . - Repeat lactic acid is 1.9 - Chest x-ray personally interpreted revealing 2 cm right upper lobe nodule, CT scan recommended for further evaluation. CT scan 10/22 reviewed, recommended follow-up noncontrast CT in 3-4 weeks if not resolved. Noncontrast CT of the chest ordered. - Continue IV fluid - start meropenem (suspect MDRO, previously known R FQ, zosyn, recent tx failure vs new infx on cefepime) - anticipate dc on IV abx per ID sepcialist appreciate recommendations. Monitor creatinine. - continuous cardiac monitoring - Monitor white count - Follow up on urine culture and blood culture results - change reinoso Metabolic encephalopathy, improving - Secondary to sepsis/UTI - Treat underlying cause as above. - PT/OT eval/tx MS/trigeminal neuralgia - appears stable at this time - Resume home medications once med rec complete Neck pain/ Degenerative changes of cervical spine. CT neck reviewed with degenerative changes, no fracture. pain meds as need. Hypertension - Will resume home medications once med rec completed - monitor BP New 2.1 cm spiculated mass right upper lobe characteristic of bronchogenic carcinoma will consult pulm ? NSTEMI - presser cotton ginning consulted, appreciate recommendation contonue medical management, 2D ECHO is normal DVT prophylaxis - Lovenox Discussed with the patient, nurse, ID specialist Amparo Nuñez MD Dec 22, 2016 09:23
--- NOTE | 2016-12-22 11:46 | MB ---
cc: GINNA BOURNE,AMPARO CAIN DATE OF CONSULTATION: 12/22/[address] Amparo Nuñez. REASON FOR CONSULTATION Lung density. HISTORY OF PRESENT ILLNESS Mr. Dolan is a pleasant 76-year-old male with a history of multiple sclerosis. He is bed-bound and he lives in the [facility] for the last four years. He cannot transfer himself from the bed to the chair. He has an indwelling Rosa catheter. The patient came to the hospital because of altered mental status. He had an indwelling Rosa, did not have fever or chills, no nausea or vomiting. The patient was worked up in the hospital. He was found to have Pseudomonas bacteremia and Pseudomonas UTI. The patient was treated with antibiotics and his mental status has significantly improved. He had a CT scan of the chest done which shows a 2.1 cm spiculated mass in the right upper lobe characteristic of bronchogenic carcinoma. He has mild bibasilar airspace disease. His CBC showed WBC count 8.1, hemoglobin 11.3, hematocrit 33.7, MCV 91, platelet count 156. Sodium 148, potassium 3.9, chloride 116, CO2 19, BUN 16, creatinine 0.53. PAST MEDICAL HISTORY 1. Multiple sclerosis. 2. Rheumatoid arthritis. 3. Hypertension. 4. Trigeminal neuralgia. 5. Chronic indwelling Rosa catheter. MEDICATIONS He is currently takin. Methotrexate 10 mg every 7 days. 2. Lipitor 20 mg. 3. Metoprolol 12.5 mg q.12h. 4. Meropenem 1000 mg q.8h. 5. Aspirin 81 mg a day. 6. Folic acid 0.8 mg. 7. Lisinopril 20 mg. 8. Lovenox 70 mg twice a day. 9. Flonase nasal spray. ALLERGIES No known drug allergies. SOCIAL HISTORY He is , lives in a halfway. 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 He has a remote history of smoking. He used to drink before. FAMILY HISTORY He has three children, two daughters live in this area. REVIEW OF SYSTEMS He is bed-bound. Denies any prior history of malignancy. No DVT or pulmonary embolism. No seizure, stroke or epilepsy. PHYSICAL EXAMINATION GENERAL: An elderly male not in acute distress. VITAL SIGNS: Blood pressure 136/71, heart rate 85, respirations 20, temperature 97.1. HEENT: Pupils are equal and reactive. Oral mucosa and nasal mucosa normal. NECK: Supple. JVP not raised. CHEST: Equal bilaterally. No rhonchi. CV: S1, S2 normal. ABDOMEN: Soft, nondistended. Bowel sounds are present. EXTREMITIES: No edema. IMPRESSION 1. Right upper lobe 2.1 cm spiculated density concerning for bronchogenic carcinoma. 2. Basilar infiltrate. 3. UTI. 4. Pseudomonas bacteremia. 5. Multiple sclerosis. PLAN I discussed with the patient he will need a CT-guided lung biopsy. I explained the procedure and the complications including complications of anesthesia, pneumothorax requiring chest tube, bleeding complication, injury to the blood vessels, lungs, nerves, arrhythmia and hypoxia which he understands well. He will think about the procedure and if it is cancer whether he would want to go for any treatment. He will discuss with his family and make a decision. If he wants to proceed will schedule him for a CT-guided lung biopsy. Further treatment will depend on the course in the hospital. Thank you, Dr. Amparo Nuñez, for this consult. MD KRYSTLE Parry/ALEISHA /11:10 AM /11:18 AM
[2016-12-22 16:54] LABS: HEMOGLOBIN A1a 1.9 %; HEMOGLOBIN A1b 1.8 %; HEMOGLOBIN Ao 84.2 %; HEMOGLOBIN P3 5.8 %
[2016-12-22] MEDS: DULoxetine HCl DR 60 MG CAP PO SCH (21:18)
[2016-12-22] MEDS: TAMSULOSIN HCL 0.4 MG CAP PO SCH (21:18)
[2016-12-22] MEDS: CETIRIZINE HCL 10 MG TAB PO SCH (21:18)
[2016-12-23] VITALS (8 sets, daily range): BP systolic 124–156; BP diastolic 58–86; PULSE 57–80; RESP 16–20; TEMP 96.5–97.7; O2SAT 97–100
[2016-12-23] MEDS: ASPIRIN 81 MG CHEW TAB CHEW SCH (08:22)
[2016-12-23] MEDS: MEROPENEM INJ 1,000 MG in SODIUM CHLORIDE 0.9% INJ 100 ML IV SCH ×2 (08:22→16:28)
[2016-12-23] MEDS: ATORVASTATIN 20 MG TAB PO SCH (08:22)
[2016-12-23] MEDS: CALCIUM POLYCARBOPHIL 625 MG TAB PO SCH ×4 (08:22→21:13)
[2016-12-23] MEDS: ENOXAPARIN SODIUM 40 MG/0.4 ML SYRINGE SQ SCH ×2 (08:22→21:14)
[2016-12-23] MEDS: FOLIC ACID 1 MG TAB PO SCH (08:23)
[2016-12-23] MEDS: LISINOPRIL 20 MG TAB PO SCH (08:23)
[2016-12-23] MEDS: METOPROLOL TARTRATE 25 MG TAB PO SCH ×2 (08:23→21:13)
[2016-12-23] MEDS: DOCUSATE SODIUM 50 MG/SENNA 8.6 MG TAB PO SCH ×2 (08:23→21:00)
[2016-12-23] MEDS: SODIUM CHLOR 0.9% 1000 ML INJ 1,000 ML IV SCH (08:24)
[2016-12-23] MEDS: SODIUM CHLORIDE 0.9% FLUSH 10 ML FLUSH IV FLUSH SCH ×3 (08:24→21:17)
[2016-12-23] MEDS: FLUTICASONE PROPIONATE 50 MCG/ACT 16 GM NASAL SPRAY EACH NARE SCH ×2 (08:24→21:24)
[2016-12-23] MEDS: ONDANSETRON HCL 4 MG/2 ML VIAL IVP PRN (08:38)
--- NOTE | 2016-12-23 14:15 | HHI.PR ---
Subjective Remarks Seen earlier today. The patient reports his associated received Zofran. He was able to eat afterwards. Reevaluated the patient feels better also family at bedside all questions answered to best of my ability . family /patient undecided regarding CT biopsy of mass lung. Patient denies having any fever ro chills. No sob or chest pain .No cough. Objective Vitals Vital Signs Date Time Temp Pulse Resp B/P (MAP) Pulse Ox O2 Delivery O2 Flow Rate FiO2 12/23/16 12:00 96.5 69 17 143/67 (92) 99 12/23/16 08:00 97.1 80 18 150/70 (96) 97 12/23/16 04:00 97.6 75 18 156/86 (109) 100 12/23/16 04:00 Nasal Cannula 2.00 12/23/16 00:00 Nasal Cannula 2.00 12/23/16 00:00 97.7 66 20 141/75 (97) 98 12/22/16 22:18 20 12/22/16 20:00 Nasal Cannula 2.00 12/22/16 20:00 78 12/22/16 20:00 97.6 79 20 153/82 (105) 99 12/22/16 17:53 98 Nasal Cannula 2.00 12/22/16 15:57 97.2 72 18 160/71 (100) 98 I/O 12/22/16 12/22/16 12/22/16 12/23/16 12/23/16 12/23/16 07:00 15:00 23:00 07:00 15:00 23:00 Intake Total 851 ml 912 ml 2640 ml Output Total 500 ml 950 ml 525 ml Balance 351 ml -38 ml 2115 ml Intake Oral 480 ml 720 ml IV Total 851 ml 432 ml 1920 ml Output Urine Total 500 ml 950 ml 525 ml # Bowel Movements 2 1 Result Diagram: 12/22/16 0550 12/22/16 0550 Imaging Last Impressions Neck CT 12/21/16 0000 Signed Impressions: Service Date/Time: Wednesday, December 21, 2016 21:43 - CONCLUSION: Extensive degenerative changes of the cervical spine. Otherwise negative with no evidence of mass or adenopathy and soft tissues are negative. Deniz Castro MD Chest X-Ray 12/20/16 1243 Signed Impressions: Service Date/Time: Tuesday, December 20, 2016 13:25 - CONCLUSION: 1. Cardiomegaly. No acute pulmonary disease. 2 cm right upper lobe nodule. CT scan is recommended for further evaluation if clinically indicated. Manuel Stockton MD Chest CT 12/20/16 0000 Signed Impressions: Service Date/Time: Tuesday, December 20, 2016 19:08 - CONCLUSION: 1. 2.1 cm spiculated mass right upper lobe characteristic of bronchogenic carcinoma. 2. Mild bibasilar airspace disease. 3. No evidence of hilar or mediastinal lymphadenopathy or mass. Rafi Santos MD Objective Remarks GENERAL: This is a frail elderly male patient, in no apparent distress. Awake and alert. Lying in hospital bed. CARDIOVASCULAR: Regular rate and rhythm without murmurs, gallops, or rubs. RESPIRATORY: Clear to auscultation. Breath sounds equal bilaterally. No wheezes , rales, or rhonchi. GASTROINTESTINAL: Abdomen soft, non-tender, nondistended. No hepato-splenomegaly , or palpable masses. No guarding. GENITOURINARY: Reinoso catheter in place with dark yellow urine noted in the bag. MUSCULOSKELETAL: Extremities without clubbing, cyanosis, or edema. No joint tenderness, effusion, or edema noted. No calf tenderness. NEUROLOGICAL: Awake and alert. Oriented to self but not place or time. Able to move right upper and lower extremity against gravity. Significant weakness noted in left upper and lower extremity with contractures noted. Normal speech. Able to move left upper extremity or left lower extremity Insight and judgment is limited Mood and behavior is somewhat appropriate A/P Assessment and Plan 76yr old male with PMHX significant for RA and MS who [facility] ED due to altered mental status. Patient meets severe sepsis criteria with white count of 13.1, heart rate 124 and lactic acid of 2.1 with a source of urinary tract infection on admission. Bacteremia. Pseudomonas aeruginosa, complicated UTI Pseudomonas aeruginosa Recent UTI, Providencia, PSAE. However PSAE R cipro and no oral options. Consult ID specialist appreciate recommendations Patient with MS with neurogenic bladder and risk of recurrent UTIs - DC IV Rocephin . - Repeat lactic acid is 1.9 - Chest x-ray personally interpreted revealing 2 cm right upper lobe nodule, CT scan recommended for further evaluation. CT scan 10/22 reviewed, recommended follow-up noncontrast CT in 3-4 weeks if not resolved. Noncontrast CT of the chest ordered. - Continue IV fluid - on meropenem (suspect MDRO, previously known R FQ, zosyn, recent tx failure vs new infx on cefepime) - anticipate dc on IV abx per ID sepcialist appreciate recommendations. Monitor creatinine. - continuous cardiac monitoring - Monitor white count - Follow up on urine culture and blood culture results - change reinoso Metabolic encephalopathy, improving - Secondary to sepsis/UTI - Treat underlying cause as above. - PT/OT eval/tx MS/trigeminal neuralgia - appears stable at this time - Resume home medications once med rec complete Neck pain/ Degenerative changes of cervical spine. CT neck reviewed with degenerative changes, no fracture. pain meds as need. Hypertension - Will resume home medications once med rec completed - monitor BP New 2.1 cm spiculated mass right upper lobe characteristic of bronchogenic carcinoma consult pulm discused with Dr Houser recommends CT giuded biopsy. Pt/ family deciding. ? NSTEMI - director systems consulted, appreciate recommendation contonue medical management, 2D ECHO is normal DVT prophylaxis - Lovenox Discussed with the patient, nurse, family, ID specialist Amparo Nuñez MD Dec 23, 2016 14:15
--- NOTE | 2016-12-23 14:25 | HHI.IDPN ---
Subjective Subjective Remarks feeling much better Antibiotics meropnem Allergies: Coded Allergies: No Known Allergies (Verified , 11/16/16) Objective . Vital Signs Date Time Temp Pulse Resp B/P (MAP) Pulse Ox O2 Delivery O2 Flow Rate FiO2 12/23/16 12:00 96.5 69 17 143/67 (92) 99 12/23/16 08:00 97.1 80 18 150/70 (96) 97 12/23/16 04:00 97.6 75 18 156/86 (109) 100 12/23/16 04:00 Nasal Cannula 2.00 12/23/16 00:00 Nasal Cannula 2.00 12/23/16 00:00 97.7 66 20 141/75 (97) 98 12/22/16 22:18 20 12/22/16 20:00 Nasal Cannula 2.00 12/22/16 20:00 78 12/22/16 20:00 97.6 79 20 153/82 (105) 99 12/22/16 17:53 98 Nasal Cannula 2.00 12/22/16 15:57 97.2 72 18 160/71 (100) 98 . Laboratory Tests Test 12/22/16 05:50 White Blood Count 8.1 TH/MM3 Red Blood Count 3.69 MIL/MM3 Hemoglobin 11.3 GM/DL Hematocrit 33.7 % Mean Corpuscular Volume 91.2 FL Mean Corpuscular Hemoglobin 30.6 PG Mean Corpuscular Hemoglobin Concent 33.6 % Red Cell Distribution Width 16.5 % Platelet Count 156 TH/MM3 Mean Platelet Volume 8.1 FL Neutrophils (%) (Auto) 85.3 % Lymphocytes (%) (Auto) 6.2 % Monocytes (%) (Auto) 6.8 % Eosinophils (%) (Auto) 1.4 % Basophils (%) (Auto) 0.3 % Neutrophils # (Auto) 6.9 TH/MM3 Lymphocytes # (Auto) 0.5 TH/MM3 Monocytes # (Auto) 0.5 TH/MM3 Eosinophils # (Auto) 0.1 TH/MM3 Basophils # (Auto) 0.0 TH/MM3 CBC Comment DIFF FINAL Differential Comment Laboratory Tests Test 12/22/16 05:50 Blood Urea Nitrogen 16 MG/DL Creatinine 0.53 MG/DL Random Glucose 66 MG/DL Calcium Level 8.1 MG/DL Sodium Level 148 MEQ/L Potassium Level 3.9 MEQ/L Chloride Level 116 MEQ/L Carbon Dioxide Level 19.2 MEQ/L Anion Gap 13 MEQ/L Estimat Glomerular Filtration Rate 152 ML/MIN Microbiology Date/Time Source Procedure Growth Status 12/21/16 11:46 Blood Peripheral Aerobic Blood Culture - Preliminary NO GROWTH IN 2 DAYS Resulted 12/21/16 11:46 Blood Peripheral Anaerobic Blood Culture - Preliminary NO GROWTH IN 2 DAYS Resulted 12/21/16 11:40 Blood Peripheral Aerobic Blood Culture - Preliminary NO GROWTH IN 2 DAYS Resulted 12/21/16 11:40 Blood Peripheral Anaerobic Blood Culture - Preliminary NO GROWTH IN 2 DAYS Resulted 12/20/16 15:15 Urine Clean Catch Urine Culture - Final Pseudomonas Aeruginosa Complete Imaging Last Impressions Neck CT 12/21/16 0000 Signed Impressions: Service Date/Time: Wednesday, December 21, 2016 21:43 - CONCLUSION: Extensive degenerative changes of the cervical spine. Otherwise negative with no evidence of mass or adenopathy and soft tissues are negative. Deniz Castro MD Chest X-Ray 12/20/16 1243 Signed Impressions: Service Date/Time: Tuesday, December 20, 2016 13:25 - CONCLUSION: 1. Cardiomegaly. No acute pulmonary disease. 2 cm right upper lobe nodule. CT scan is recommended for further evaluation if clinically indicated. Manuel Stockton MD Chest CT 12/20/16 0000 Signed Impressions: Service Date/Time: Tuesday, December 20, 2016 19:08 - CONCLUSION: 1. 2.1 cm spiculated mass right upper lobe characteristic of bronchogenic carcinoma. 2. Mild bibasilar airspace disease. 3. No evidence of hilar or mediastinal lymphadenopathy or mass. Rafi Santos MD Physical Exam CONSTITUTIONAL/GENERAL: This is an adequately nourished patient, in no apparent distress. TUBES/LINES/DRAINS: SKIN: No jaundice, rashes, or lesions. Skin temperature appropriate. Not diaphoretic. EYES: Pupils equal and round and reactive. Extraocular motions intact. No scleral icterus. No injection or drainage. Fundi not examined. ENT: Hearing grossly normal. CARDIOVASCULAR: Regular rate and rhythm without murmurs, gallops, or rubs. RESPIRATORY/CHEST: Symmetric, unlabored respirations. Clear to auscultation. Breath sounds equal bilaterally. No wheezes, rales, or rhonchi. GASTROINTESTINAL: Abdomen soft, non-tender, nondistended. Bowel sounds present. GENITOURINARY: Without palpable bladder distension. Rosa catheter in place. MUSCULOSKELETAL: Extremities without clubbing, cyanosis, or edema. No mottling or clubbing. NEUROLOGICAL: Awake and alert. with stable neurological deficits PSYCHIATRIC: calm adn cooperative Assessment & Plan Remarks MS with neurogenic bladder Sepsis, PSAE MDRO COmplicated UTI, PSAE, recurrent : likely the source of sepsis - new infx - now with MDRO ew 2.1 cm spiculated mass right upper lobe characteristic of bronchogenic carcinoma - for bx ? NSTEMI - offset duplicating machine operator consuilted - cont meropenem (suspect MDRO, previously known R FQ, zosyn, recent tx failure vs new infx on cefepime) - anticipate dc on IV meropenem x 2 weeks - PICC if repeat BC remain neg for >= 72 hrs Discussed Condition With dghtrs @ b/s Candy Dee MD Dec 23, 2016 14:25
[2016-12-23] MEDS: SODIUM CHLOR 0.45% 1000 ML INJ 1,000 ML IV SCH (16:27)
--- NOTE | 2016-12-23 17:56 | HHI.PR ---
Subjective Remarks 76 YOWM with MS, UTI,Sepsis,RUL density Breathing better no Fever Daughter Nova at BS Objective Vital Signs Vital Signs Date Time Temp Pulse Resp B/P (MAP) Pulse Ox O2 Delivery O2 Flow Rate FiO2 12/23/16 16:00 96.5 72 16 124/58 (80) 98 12/23/16 12:00 96.5 69 17 143/67 (92) 99 12/23/16 08:00 97.1 80 18 150/70 (96) 97 12/23/16 04:00 97.6 75 18 156/86 (109) 100 12/23/16 04:00 Nasal Cannula 2.00 12/23/16 00:00 Nasal Cannula 2.00 12/23/16 00:00 97.7 66 20 141/75 (97) 98 12/22/16 22:18 20 12/22/16 20:00 Nasal Cannula 2.00 12/22/16 20:00 78 12/22/16 20:00 97.6 79 20 153/82 (105) 99 12/22/16 17:53 98 Nasal Cannula 2.00 I/O 12/22/16 12/22/16 12/22/16 12/23/16 12/23/16 12/23/16 07:00 15:00 23:00 07:00 15:00 23:00 Intake Total 851 ml 912 ml 2640 ml 100 ml 600 ml Output Total 500 ml 950 ml 525 ml Balance 351 ml -38 ml 2115 ml 100 ml 600 ml Intake Oral 480 ml 720 ml IV Total 851 ml 432 ml 1920 ml 100 ml 600 ml Output Urine Total 500 ml 950 ml 525 ml # Bowel Movements 2 1 Result Diagram: 12/22/16 0550 12/22/16 0550 Objective Remarks GENERAL: MBMN WM,NAD SKIN: Warm and dry. HEAD: Normocephalic. EYES: No scleral icterus. No injection or drainage. NECK: Supple, trachea midline. No JVD or lymphadenopathy. CARDIOVASCULAR: Regular rate and rhythm without murmurs, gallops, or rubs. RESPIRATORY: Breath sounds equal bilaterally. No accessory muscle use. GASTROINTESTINAL: Abdomen soft, non-tender, nondistended. MUSCULOSKELETAL: No cyanosis, or edema. BACK: Nontender without obvious deformity. No CVA tenderness. A/P Assessment and Plan RUL Spiculated density, concerning for Malignanct MS UTI Pseudomonas Bactremia basal Infilterates PLAN: DW Pt and Daughter Nova As of now, they do not want any bx Cont Abx cardiac medina underway Carlos Houser MD Dec 23, 2016 17:55
[2016-12-23] MEDS: TAMSULOSIN HCL 0.4 MG CAP PO SCH (21:13)
[2016-12-23] MEDS: CETIRIZINE HCL 10 MG TAB PO SCH (21:13)
[2016-12-23] MEDS: DULoxetine HCl DR 60 MG CAP PO SCH (21:13)
[2016-12-24] VITALS (8 sets, daily range): BP systolic 142–169; BP diastolic 66–92; PULSE 61–72; RESP 14–18; TEMP 96–97.5; O2SAT 95–100
[2016-12-24] MEDS: MEROPENEM INJ 1,000 MG in SODIUM CHLORIDE 0.9% INJ 100 ML IV SCH ×3 (00:09→17:45)
[2016-12-24] MEDS: SODIUM CHLOR 0.45% 1000 ML INJ 1,000 ML IV SCH ×3 (04:29→21:30)
[2016-12-24] MEDS: FLUTICASONE PROPIONATE 50 MCG/ACT 16 GM NASAL SPRAY EACH NARE SCH ×2 (09:00→22:03)
[2016-12-24] MEDS: CALCIUM POLYCARBOPHIL 625 MG TAB PO SCH ×4 (09:00→22:02)
[2016-12-24] MEDS: SODIUM CHLORIDE 0.9% FLUSH 10 ML FLUSH IV FLUSH SCH ×2 (09:00→22:03)
[2016-12-24] MEDS: ONDANSETRON HCL 4 MG/2 ML VIAL IVP PRN (09:09)
[2016-12-24] MEDS: ATORVASTATIN 20 MG TAB PO SCH (09:10)
[2016-12-24] MEDS: ASPIRIN 81 MG CHEW TAB CHEW SCH (09:10)
[2016-12-24] MEDS: LISINOPRIL 20 MG TAB PO SCH (09:10)
[2016-12-24] MEDS: DOCUSATE SODIUM 50 MG/SENNA 8.6 MG TAB PO SCH ×2 (09:11→21:00)
[2016-12-24] MEDS: ENOXAPARIN SODIUM 40 MG/0.4 ML SYRINGE SQ SCH ×2 (09:11→22:04)
[2016-12-24] MEDS: METOPROLOL TARTRATE 25 MG TAB PO SCH ×2 (09:11→22:02)
[2016-12-24] MEDS: FOLIC ACID 1 MG TAB PO SCH (09:11)
--- NOTE | 2016-12-24 13:23 | HHI.PR ---
Subjective Remarks In bed, says less nausea today and was able to eat. No fever or chills. No chest pain or sob. Denies chest pain or sob. Objective Vitals Vital Signs Date Time Temp Pulse Resp B/P (MAP) Pulse Ox O2 Delivery O2 Flow Rate FiO2 12/24/16 12:42 98 Nasal Cannula 2.00 12/24/16 08:00 97.2 72 16 154/68 (96) 98 12/24/16 04:00 96.0 67 18 156/78 (104) 100 12/24/16 00:44 96.2 61 18 142/66 (91) 99 12/23/16 20:00 57 12/23/16 20:00 96.9 67 18 150/75 (100) 98 12/23/16 17:59 98 Nasal Cannula 2.00 12/23/16 16:00 96.5 72 16 124/58 (80) 98 I/O 12/23/16 12/23/16 12/23/16 12/24/16 12/24/16 12/24/16 07:00 15:00 23:00 07:00 15:00 23:00 Intake Total 2640 ml 100 ml 1837 ml 346 ml Output Total 525 ml 600 ml 1000 ml Balance 2115 ml 100 ml 1237 ml -654 ml Intake Oral 720 ml 600 ml IV Total 1920 ml 100 ml 1237 ml 346 ml Output Urine Total 525 ml 600 ml 1000 ml # Bowel Movements 1 1 1 Result Diagram: 12/22/16 0550 12/22/16 0550 Imaging Last Impressions Neck CT 12/21/16 0000 Signed Impressions: Service Date/Time: Wednesday, December 21, 2016 21:43 - CONCLUSION: Extensive degenerative changes of the cervical spine. Otherwise negative with no evidence of mass or adenopathy and soft tissues are negative. Deniz Castro MD Chest X-Ray 12/20/16 1243 Signed Impressions: Service Date/Time: Tuesday, December 20, 2016 13:25 - CONCLUSION: 1. Cardiomegaly. No acute pulmonary disease. 2 cm right upper lobe nodule. CT scan is recommended for further evaluation if clinically indicated. Manuel Stockton MD Chest CT 12/20/16 0000 Signed Impressions: Service Date/Time: Tuesday, December 20, 2016 19:08 - CONCLUSION: 1. 2.1 cm spiculated mass right upper lobe characteristic of bronchogenic carcinoma. 2. Mild bibasilar airspace disease. 3. No evidence of hilar or mediastinal lymphadenopathy or mass. Rafi Santos MD Objective Remarks GENERAL: This is a frail elderly male patient, in no apparent distress. Awake and alert. Lying in hospital bed. CARDIOVASCULAR: Regular rate and rhythm without murmurs, gallops, or rubs. RESPIRATORY: Clear to auscultation. Breath sounds equal bilaterally. No wheezes , rales, or rhonchi. GASTROINTESTINAL: Abdomen soft, non-tender, nondistended. No hepato-splenomegaly , or palpable masses. No guarding. GENITOURINARY: Reinoso catheter in place with dark yellow urine noted in the bag. MUSCULOSKELETAL: Extremities without clubbing, cyanosis, or edema. No joint tenderness, effusion, or edema noted. No calf tenderness. NEUROLOGICAL: Awake and alert. Oriented to self but not place or time. Able to move right upper and lower extremity against gravity. Significant weakness noted in left upper and lower extremity with contractures noted. Normal speech. Able to move left upper extremity or left lower extremity Insight and judgment is limited Mood and behavior is somewhat appropriate A/P Assessment and Plan 76yr old male with PMHX significant for RA and MS who [facility] ED due to altered mental status. Patient meets severe sepsis criteria with white count of 13.1, heart rate 124 and lactic acid of 2.1 with a source of urinary tract infection on admission. Bacteremia. Pseudomonas aeruginosa, complicated UTI Pseudomonas aeruginosa Recent UTI, Providencia, PSAE. However PSAE R cipro and no oral options. Consult ID specialist appreciate recommendations Patient with MS with neurogenic bladder and risk of recurrent UTIs - DC IV Rocephin . - Repeat lactic acid is 1.9 - Chest x-ray personally interpreted revealing 2 cm right upper lobe nodule, CT scan recommended for further evaluation. CT scan 10/22 reviewed, recommended follow-up noncontrast CT in 3-4 weeks if not resolved. Noncontrast CT of the chest ordered. - Continue IV fluid - on meropenem (suspect MDRO, previously known R FQ, zosyn, recent tx failure vs new infx on cefepime) - anticipate dc on IV abx per ID sepcialist appreciate recommendations. Monitor creatinine. - continuous cardiac monitoring - Monitor white count - Follow up on urine culture and blood culture results - change reinoso Metabolic encephalopathy, improving - Secondary to sepsis/UTI - Treat underlying cause as above. - PT/OT eval/tx MS/trigeminal neuralgia - appears stable at this time - Resume home medications once med rec complete Neck pain/ Degenerative changes of cervical spine. CT neck reviewed with degenerative changes, no fracture. pain meds as need. Hypertension - Will resume home medications once med rec completed - monitor BP New 2.1 cm spiculated mass right upper lobe characteristic of bronchogenic carcinoma consult pulm discused with Dr Houser recommends CT giuded biopsy. Pt/ family deciding. ? NSTEMI - kosher dietary service manager consulted, appreciate recommendation contonue medical management, 2D ECHO is normal DVT prophylaxis - Lovenox All questions answered to best of my ability Discussed with the patient, nurse, family, ID specialist Discharge tomorroe , need IV abx at DC discussed with Dr Riley ID specialist Amparo Nuñez MD Dec 24, 2016 13:23
--- NOTE | 2016-12-24 16:03 | HHI.PR ---
Subjective Remarks 76 YOWM with MS, UTI,Sepsis,RUL density Breathing better no Fever No new complaint Objective Vital Signs Vital Signs Date Time Temp Pulse Resp B/P (MAP) Pulse Ox O2 Delivery O2 Flow Rate FiO2 12/24/16 12:42 98 Nasal Cannula 2.00 12/24/16 12:00 97.5 63 17 169/74 (105) 98 12/24/16 08:00 97.2 72 16 154/68 (96) 98 12/24/16 04:00 96.0 67 18 156/78 (104) 100 12/24/16 00:44 96.2 61 18 142/66 (91) 99 12/23/16 20:00 57 12/23/16 20:00 96.9 67 18 150/75 (100) 98 12/23/16 17:59 98 Nasal Cannula 2.00 I/O 12/23/16 12/23/16 12/23/16 12/24/16 12/24/16 12/24/16 07:00 15:00 23:00 07:00 15:00 23:00 Intake Total 2640 ml 100 ml 1837 ml 346 ml Output Total 525 ml 600 ml 1000 ml Balance 2115 ml 100 ml 1237 ml -654 ml Intake Oral 720 ml 600 ml IV Total 1920 ml 100 ml 1237 ml 346 ml Output Urine Total 525 ml 600 ml 1000 ml # Bowel Movements 1 1 1 Result Diagram: 12/22/16 0550 12/22/16 0550 Objective Remarks GENERAL: MBMN WM,NAD SKIN: Warm and dry. HEAD: Normocephalic. EYES: No scleral icterus. No injection or drainage. NECK: Supple, trachea midline. No JVD or lymphadenopathy. CARDIOVASCULAR: Regular rate and rhythm without murmurs, gallops, or rubs. RESPIRATORY: Breath sounds equal bilaterally. No accessory muscle use. GASTROINTESTINAL: Abdomen soft, non-tender, nondistended. MUSCULOSKELETAL: No cyanosis, or edema. BACK: Nontender without obvious deformity. No CVA tenderness. A/P Assessment and Plan RUL Spiculated density, concerning for Malignanct MS UTI Pseudomonas Bactremia basal Infilterates PLAN: DW Pt and Daughter Nova As of now, they do not want any bx Cont Abx wean 02 Carlos Houser MD Dec 24, 2016 16:03
--- NOTE | 2016-12-24 18:32 | HHI.DS ---
Discharge Summary Admission Date Dec 20, 2016 at 17:48 Discharge Date: Dec 25, 2016 Admitting Diagnosis urinary tract infection, sepsis (1) Dehydration ICD Code: E86.0 - Dehydration Status: Acute (2) Hypokalemia ICD Code: E87.6 - Hypokalemia Status: Resolved (3) Hemorrhagic cystitis ICD Code: N30.91 - Cystitis, unspecified with hematuria Status: Acute (4) Weakness ICD Code: R53.1 - Weakness Status: Acute (5) Bilateral pneumonia ICD Code: J18.9 - Pneumonia, unspecified organism Status: Acute (6) UTI (urinary tract infection) ICD Code: N39.0 - Urinary tract infection, site not specified Status: Acute (7) Lung mass ICD Code: R91.8 - Other nonspecific abnormal finding of lung field (8) CAD (coronary artery disease) ICD Code: I25.10 - Atherosclerotic heart disease of [place] coronary artery without angina pectoris Procedures none Brief History - From Admission This is a 76yr old male with PMHX significant for RA and MS who is presenting from half-way to [facility] ED due to altered mental status. Reportedly , patient's been more confused. Patient was just discharged from our facility on 11/22/16 following admission for altered mental status secondary to urinary tract infection. Patient does have a chronic Reinoso catheter. Patient states he just doesn't feel well but is unable to give specifics. He denies any fever , chills, lightheadedness, vision changes, nausea, vomiting, chest pain, shortness of breath, abdominal pain, diarrhea or constipation. He reports that his appetite has been good. He states the Reinoso catheter has not been changed since his discharge from our facility. He is oriented to self and is able to tell me the correct year. He is confused as to his location, the month and answered incorrectly that [facility] was president. In the ED, patient was found to have evidence of urinary tract infection and was given Rocephin and 3L of fluid. CBC/BMP: 12/22/16 0550 12/22/16 0550 Significant Findings Laboratory Tests Test 12/22/16 05:50 Red Blood Count 3.69 MIL/MM3 (4.50-5.90) Hemoglobin 11.3 GM/DL (13.0-17.0) Hematocrit 33.7 % (39.0-51.0) Neutrophils (%) (Auto) 85.3 % (16.0-70.0) Lymphocytes (%) (Auto) 6.2 % (9.0-44.0) Lymphocytes # (Auto) 0.5 TH/MM3 (1.0-4.8) Creatinine 0.53 MG/DL (0.60-1.30) Random Glucose 66 MG/DL (74-106) Calcium Level 8.1 MG/DL (8.5-10.1) Sodium Level 148 MEQ/L (136-145) Chloride Level 116 MEQ/L (98-107) Carbon Dioxide Level 19.2 MEQ/L (21.0-32.0) Imaging Last Impressions Neck CT 12/21/16 0000 Signed Impressions: Service Date/Time: Wednesday, December 21, 2016 21:43 - CONCLUSION: Extensive degenerative changes of the cervical spine. Otherwise negative with no evidence of mass or adenopathy and soft tissues are negative. Deniz Castro MD Chest X-Ray 12/20/16 1243 Signed Impressions: Service Date/Time: Tuesday, December 20, 2016 13:25 - CONCLUSION: 1. Cardiomegaly. No acute pulmonary disease. 2 cm right upper lobe nodule. CT scan is recommended for further evaluation if clinically indicated. Manuel Stockton MD Chest CT 12/20/16 0000 Signed Impressions: Service Date/Time: Tuesday, December 20, 2016 19:08 - CONCLUSION: 1. 2.1 cm spiculated mass right upper lobe characteristic of bronchogenic carcinoma. 2. Mild bibasilar airspace disease. 3. No evidence of hilar or mediastinal lymphadenopathy or mass. Rafi Santos MD PE at Discharge GENERAL: This is a frail elderly male patient, in no apparent distress. Awake and alert. Lying in hospital bed. CARDIOVASCULAR: Regular rate and rhythm without murmurs, gallops, or rubs. RESPIRATORY: Clear to auscultation. Breath sounds equal bilaterally. No wheezes , rales, or rhonchi. GASTROINTESTINAL: Abdomen soft, non-tender, nondistended. No hepato-splenomegaly , or palpable masses. No guarding. GENITOURINARY: Reinoso catheter in place with dark yellow urine noted in the bag. MUSCULOSKELETAL: Extremities without clubbing, cyanosis, or edema. No joint tenderness, effusion, or edema noted. No calf tenderness. NEUROLOGICAL: Awake and alert. Oriented to self but not place or time. Able to move right upper and lower extremity against gravity. Significant weakness noted in left upper and lower extremity with contractures noted. Normal speech. Able to move left upper extremity or left lower extremity Insight and judgment is limited Mood and behavior is somewhat appropriate Pt update on day of discharge In bed feels better,. no more nausea, no v/d/c. No fever ro chills. Plan to dC to SNF Hospital Course 76yr old male with PMHX significant for RA and MS who is presenting from half-way to [facility] ED due to altered mental status. Patient with severe sepsis on admission, encephalopathy . Also elevated trops. Also incidental was fund spiculated mass on CT suspicious of malignancy Dr Corrina cervantes recommended CT guided biopsy however patient an family refused any invasive procedures and would like to f./u as OP. ID consulted restarted meropenem, patient with bacteremia, to continue IV abx at SNF, repeat blood cx are negative. Reinoso needs to be changed q 4 weeks. Patient with MS and atonic bladder. Cardio also consulted recommended medical management, Patient improved was discharged to SNF is stable condition to follow up as OP with PCP and consultants. Patient met severe sepsis criteria on admission with white count of 13.1, heart rate 124 and lactic acid of 2.1 with a source of urinary tract infection on admission. Bacteremia. Pseudomonas aeruginosa, complicated UTI Pseudomonas aeruginosa Recent UTI, Providencia, PSAE. However PSAE R cipro and no oral options. Consult ID specialist appreciate recommendations Patient with MS with neurogenic bladder and risk of recurrent UTIs - DC IV Rocephin . - Repeat lactic acid is 1.9 - Chest x-ray personally interpreted revealing 2 cm right upper lobe nodule, CT scan recommended for further evaluation. CT scan 10/22 reviewed, recommended follow-up noncontrast CT in 3-4 weeks if not resolved. Noncontrast CT of the chest ordered. - Continue IV fluid - on meropenem (suspect MDRO, previously known R FQ, zosyn, recent tx failure vs new infx on cefepime) - anticipate dc on IV abx per ID specialist appreciate recommendations. Monitor creatinine. - continuous cardiac monitoring - Monitor white count - Follow up on urine culture and blood culture results - change reinoso every 4 weeks Metabolic encephalopathy, resolved with resolving sepsis - Secondary to sepsis/UTI - Treat underlying cause as above. - PT/OT eval/tx MS/trigeminal neuralgia - appears stable at this time - Resume home medications once med rec complete Neck pain/ Degenerative changes of cervical spine. CT neck reviewed with degenerative changes, no fracture. pain meds as need. Hypertension - Will resume home medications once med rec completed - monitor BP New 2.1 cm spiculated mass right upper lobe characteristic of bronchogenic carcinoma consult pulm discused with Dr Houser recommends CT giuded biopsy. Pt/ family decided as OP f/u with pulm and not doingany invasive procedures at this time. ? NSTEMI - masonry inspector consulted, appreciate recommendation continue medical management, 2D ECHO is normal . f/u as OP DVT prophylaxis - Lovenox All questions answered to best of my ability Discussed with the patient, nurse, family, ID specialist Discharge to SNF in stable condition to follow up as OP with PCP and consultants. To continue IV abx at DC discussed with Dr Riley ID specialist Pt Condition on Discharge: Stable Discharge Disposition: Discharge to SNF Discharge Time: > 30 minutes Discharge Instructions DIET: Follow Instructions for: Heart Healthy Diet Activities you can perform: Regular-No Restrictions Follow up Referrals: Cardiology - 1 Week with Tino Rodriguez MD PCP Follow-up - 2-3 Days Pulmonology - 3-5 Days with Carlos Houser MD New Medications: Epinephrine Inj (Epinephrine Inj) 1 Mg/Ml (1 Ml) Inj 0.3 MG IV PUSH ONCE PRN for ALLERGIC REACTION, #1 VIAL Epinephrine Inj (Epinephrine Inj) 1 Mg/Ml (1 Ml) Inj 0.3 MG SQ ONCE PRN for ALLERGIC REACTION, #1 VIAL Give with any signs of respiratory distress. Hydrocortisone Inj (Solu-Cortef Inj) 250 Mg/2 Ml Inj 250 MG IV PUSH ONCE PRN for ALLERGIC REACTION, #1 VIAL 0 Refills Give over 30-60 seconds. Meropenem Inj (Meropenem Inj) 1 Gm/50 Ml Bag 1000 MG IV Q8H for Infection for 10 Days, BAG 0 Refills Atorvastatin (Atorvastatin) 20 Mg Tab 20 MG PO DAILY for Cholesterol Management, #30 TAB Metoprolol Tartrate (Metoprolol Tartrate) 25 Mg Tab 12.5 MG PO Q12HR for Blood Pressure Management, #60 TAB Sennosides-Docusate Sodium (Senna Plus 8.6-50 mg) 8.6 Mg-50 Mg Tab 1 TAB PO BID for Constipation, #60 TAB Continued Medications: Acetaminophen (Mapap) 500 Mg Tab 500 MG PO Q6HR PRN for PAIN, TAB 0 Refills Aspirin (Aspirin Low Dose) 81 Mg Chew 81 MG CHEW DAILY, TAB 0 Refills Calcium Polycarbophil (Fiber-Caps) 625 Mg Tab 625 MG PO QID for BOWEL REGULARITY, TAB Carbamazepine (Carbamazepine) 200 Mg Tab 200 MG PO QID for TMJ, #60 TAB 0 Refills Cefepime Inj (Cefepime Inj) 2 Gm/100 Ml Bagp 2 GM IV Q12H for Infection for 14 Days, BAG 0 Refills Cefepime Inj (Maxipime Inj) 2 Gram Inj 2 GM IV Q12HR for Infection for 7 Days, VIAL 0 Refills Cetirizine (Cetirizine) 10 Mg Tab 10 MG PO HS for Allergies, TAB [address] (Cymbalta DR) 60 Mg Capdr 60 MG PO HS, #30 CAP 0 Refills Epinephrine Inj (Epinephrine Inj) 1 Mg/Ml (1 Ml) Inj 0.3 MG IV PUSH ONCE PRN for ALLERGIC REACTION, #1 VIAL Epinephrine Inj (Epinephrine Inj) 1 Mg/Ml (1 Ml) Inj 0.3 MG SQ ONCE PRN for ALLERGIC REACTION, #1 VIAL Give with any signs of respiratory distress. Fluticasone Nasal [place] (Fluticasone Nasal [place]) 50 Mcg/Act Naspr 1 MCG EACH NARE BID for CONGESTION, #1 BOTTLE 0 Refills 50 mcg/spray Folic Acid (Folic Acid) 800 Mcg Tab 800 MCG PO DAILY for Nutritional Supplement, TAB 0 Refills Hydrocortisone Inj (Solu-Cortef Inj) 250 Mg/2 Ml Inj 250 MG IV PUSH ONCE PRN for ALLERGIC REACTION, #1 VIAL 0 Refills Give over 30-60 seconds. Lisinopril (Lisinopril) 20 Mg Tab 20 MG PO DAILY, #30 TAB 0 Refills Methotrexate (Methotrexate) 2.5 Mg Tab 10 MG PO WEDNESDAY for MS RELATED TO MS, TAB 0 Refills Tamsulosin (Tamsulosin) 0.4 Mg Cap 0.4 MG PO HS for Manage Prostate Problems, #30 CAP 0 Refills mAparo Nuñez MD Dec 24, 2016 18:32
[2016-12-24] MEDS ORDERED: ATOR20TA15 PO (18:37)
[2016-12-24] MEDS ORDERED: SENN1TAB PO (18:37)
[2016-12-24] MEDS ORDERED: METO25TA3 PO (18:37)
[2016-12-24] MEDS: DULoxetine HCl DR 60 MG CAP PO SCH (22:02)
[2016-12-24] MEDS: CETIRIZINE HCL 10 MG TAB PO SCH (22:02)
[2016-12-24] MEDS: TAMSULOSIN HCL 0.4 MG CAP PO SCH (22:02)
[2016-12-25] VITALS: BP 168/92; PULSE 63; RESP 18; TEMP 96.6; O2SAT 95
[2016-12-25] MEDS: MEROPENEM INJ 1,000 MG in SODIUM CHLORIDE 0.9% INJ 100 ML IV SCH ×2 (01:20→10:02)
[2016-12-25 04:00] VITALS: BP 164/73; PULSE 75; RESP 18; TEMP 96.1; O2SAT 95
[2016-12-25] MEDS: SODIUM CHLOR 0.45% 1000 ML INJ 1,000 ML IV SCH (04:48)
[2016-12-25] MEDS: ONDANSETRON HCL 4 MG/2 ML VIAL IVP PRN (05:19)
[2016-12-25 08:00] VITALS: BP 142/68; PULSE 63; RESP 16; TEMP 96.3; O2SAT 95
[2016-12-25] MEDS: FLUTICASONE PROPIONATE 50 MCG/ACT 16 GM NASAL SPRAY EACH NARE SCH (09:00)
[2016-12-25] MEDS: SODIUM CHLORIDE 0.9% FLUSH 10 ML FLUSH IV FLUSH SCH (09:00)
[2016-12-25] MEDS: METOPROLOL TARTRATE 25 MG TAB PO SCH (09:59)
[2016-12-25] MEDS: LISINOPRIL 20 MG TAB PO SCH (09:59)
[2016-12-25] MEDS: ATORVASTATIN 20 MG TAB PO SCH (09:59)
[2016-12-25] MEDS: FOLIC ACID 1 MG TAB PO SCH (09:59)
[2016-12-25] MEDS: DOCUSATE SODIUM 50 MG/SENNA 8.6 MG TAB PO SCH (09:59)
[2016-12-25] MEDS: ASPIRIN 81 MG CHEW TAB CHEW SCH (09:59)
[2016-12-25] MEDS: CALCIUM POLYCARBOPHIL 625 MG TAB PO SCH (09:59)
[2016-12-25] MEDS: ENOXAPARIN SODIUM 40 MG/0.4 ML SYRINGE SQ SCH (10:00)
--- NOTE | 2016-12-25 11:22 | HHI.PR ---
Subjective Remarks 76 YOWM with MS, UTI,Sepsis,RUL density Breathing better no Fever No new complaint Objective Vital Signs Vital Signs Date Time Temp Pulse Resp B/P (MAP) Pulse Ox O2 Delivery O2 Flow Rate FiO2 12/25/16 08:00 96.3 63 16 142/68 (92) 95 12/25/16 04:00 96.1 75 18 164/73 (103) 95 12/25/16 00:00 96.6 63 18 168/92 (117) 95 12/24/16 20:28 62 12/24/16 20:00 96.4 64 18 165/92 (116) 97 12/24/16 16:00 97.4 64 14 161/68 (99) 95 12/24/16 12:42 98 Nasal Cannula 2.00 12/24/16 12:00 97.5 63 17 169/74 (105) 98 I/O 12/24/16 12/24/16 12/24/16 12/25/16 12/25/16 12/25/16 07:00 15:00 23:00 07:00 15:00 23:00 Intake Total 346 ml 240 ml 1412 ml Output Total 1000 ml 600 ml 1450 ml Balance -654 ml -360 ml -38 ml Intake Oral 240 ml 240 ml IV Total 346 ml 1172 ml Output Urine Total 1000 ml 600 ml 1450 ml # Bowel Movements 1 0 1 Result Diagram: 12/22/16 0550 12/22/16 0550 Objective Remarks GENERAL: MBMN WM,NAD SKIN: Warm and dry. HEAD: Normocephalic. EYES: No scleral icterus. No injection or drainage. NECK: Supple, trachea midline. No JVD or lymphadenopathy. CARDIOVASCULAR: Regular rate and rhythm without murmurs, gallops, or rubs. RESPIRATORY: Breath sounds equal bilaterally. No accessory muscle use. GASTROINTESTINAL: Abdomen soft, non-tender, nondistended. MUSCULOSKELETAL: No cyanosis, or edema. BACK: Nontender without obvious deformity. No CVA tenderness. 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
[2016-12-25 12:00] VITALS: BP 152/70; PULSE 63; RESP 16; TEMP 98.1; O2SAT 96
--- NOTE | 2016-12-25 14:26 | HHI.FF ---
Infusion Therapy Location of Infusion Therapy: [facility] Infusion Therapy Order Patient Information Patient Weight 82 kg Diagnosis: Diagnosis UTI, MDRO Coded Allergies: No Known Allergies (Verified , 11/16/16) Administer Medication Meropenem 1 gm IV q 8 hrs Start Treatment: Dec 25, 2016 Stop Treatment: Jan 04, 2017 Additional Information Venous access: PICC Line Additional Instructions [x] Peripheral flush and dressing changes per protocol [x] Implanted port and central supervisor facepiece line: * Implanted port: 10 ml Normal Saline followed by 5 ml Heparin 100 units/ml Heparin flush after each use and monthly to maintain. [] May leave port accessed during therapy. [] May leave peripheral site accessed for duration of therapy. [x] If patient has SOB or respiratory distress, check oxygen saturation. If less than 90% or clinical signs of respiratory distress, administer oxygen at 2 L/min. via nasal cannula and notify physician. [x] Anaphylaxis/Reaction orders: * Stop infusion. * Keep IV line open with saline flush. * Notify physician. * Monitor vital signs every 15 minutes until symptoms resolve. * Check Oxygen saturation; Oxygen at 2 L/min. via nasal cannula if less than 90% or clinical signs of respiratory distress. * Administer diphenhydramine (Benadryl) 25 mg IV STAT, (unless patient has received as pre-med). May repeat once, if necessary. * Solu-Cortef 250 mg IVP over 30-60 seconds, use 100 mg vials for each dissolution. * Epinephrine (1mg/1 ml) 0.3 mg subcutaneously or IVP now with any signs of respiratory distress. * Check with physician for new additional pre-med orders if patient is re- challenged or re-treated. [x] May remove PICC line when treatment complete, after confirming with Physician. [x] If the patient is admitted to the hospital, the ED, or transferred via [facility] , complete transfer form including medication reconciliation order sheet. Laboratory Tests Weekly Labs: CBC w/diff, Creatinine, LFT's (Hepatic function test) Candy Dee MD Dec 25, 2016 14:26
[2016-12-25] MEDS ORDERED: MERO1INJ8 IV (14:29)
[2016-12-25] MEDS ORDERED: SOLU250I IV PUSH (14:29)
[2016-12-25] MEDS ORDERED: EPIN1INJ21 IV PUSH (14:29)
[2016-12-25] MEDS ORDERED: EPIN1INJ21 SQ (14:29)
--- NOTE | 2016-12-25 14:32 | HHI.IDPN ---
Subjective Subjective Remarks feeling much better Antibiotics meropnem Allergies: Coded Allergies: No Known Allergies (Verified , 11/16/16) Objective . Vital Signs Date Time Temp Pulse Resp B/P (MAP) Pulse Ox O2 Delivery O2 Flow Rate FiO2 12/25/16 12:00 98.1 63 16 152/70 (97) 96 12/25/16 08:00 96.3 63 16 142/68 (92) 95 12/25/16 04:00 96.1 75 18 164/73 (103) 95 12/25/16 00:00 96.6 63 18 168/92 (117) 95 12/24/16 20:28 62 12/24/16 20:00 96.4 64 18 165/92 (116) 97 12/24/16 16:00 97.4 64 14 161/68 (99) 95 Imaging Last Impressions Neck CT 12/21/16 0000 Signed Impressions: Service Date/Time: Wednesday, December 21, 2016 21:43 - CONCLUSION: Extensive degenerative changes of the cervical spine. Otherwise negative with no evidence of mass or adenopathy and soft tissues are negative. Deniz Castro MD Chest X-Ray 12/20/16 1243 Signed Impressions: Service Date/Time: Tuesday, December 20, 2016 13:25 - CONCLUSION: 1. Cardiomegaly. No acute pulmonary disease. 2 cm right upper lobe nodule. CT scan is recommended for further evaluation if clinically indicated. Manuel Stockton MD Chest CT 12/20/16 0000 Signed Impressions: Service Date/Time: Tuesday, December 20, 2016 19:08 - CONCLUSION: 1. 2.1 cm spiculated mass right upper lobe characteristic of bronchogenic carcinoma. 2. Mild bibasilar airspace disease. 3. No evidence of hilar or mediastinal lymphadenopathy or mass. Rafi Santos MD Physical Exam CONSTITUTIONAL/GENERAL: This is an adequately nourished patient, in no apparent distress. TUBES/LINES/DRAINS: SKIN: No jaundice, rashes, or lesions. Skin temperature appropriate. Not diaphoretic. EYES: Pupils equal and round and reactive. Extraocular motions intact. No scleral icterus. No injection or drainage. Fundi not examined. ENT: Hearing grossly normal. CARDIOVASCULAR: Regular rate and rhythm without murmurs, gallops, or rubs. RESPIRATORY/CHEST: Symmetric, unlabored respirations. Clear to auscultation. Breath sounds equal bilaterally. No wheezes, rales, or rhonchi. GASTROINTESTINAL: Abdomen soft, non-tender, nondistended. Bowel sounds present. GENITOURINARY: Without palpable bladder distension. Rosa catheter in place. MUSCULOSKELETAL: Extremities without clubbing, cyanosis, or edema. No mottling or clubbing. NEUROLOGICAL: Awake and alert. with stable neurological deficits Assessment & Plan Remarks MS with neurogenic bladder Sepsis, PSAE MDRO - repeat BC negative COmplicated UTI, PSAE, recurrent : likely the source of sepsis - new infx - now with MDRO New 2.1 cm spiculated mass right upper lobe characteristic of bronchogenic carcinoma - for bx ? NSTEMI - optical sales associate consuilted - cont meropenem x 10 more dayss - OK to dc from ID standpoint -OPAT forms filled out - PICC ordered (midline OK if qualifies) Discussed Condition With Candy Sanches MD Dec 25, 2016 14:32
[2016-12-25 14:54] LABS: AUTOMATED NEUTROPHIL # 4.2 TH/MM3 (1.8-7.7); BASOPHIL # 0.1 TH/MM3 (0-0.2); BASOPHIL % 0.9 % (0.0-2.0); EOSINOPHIL # 0.6 TH/MM3 (0-0.4); EOSINOPHIL % 10.1 % (0.0-4.0); HEMATOCRIT 30.9 % (39.0-51.0); LYMPH % 13.1 % (9.0-44.0); LYMPHOCYTE # 0.8 TH/MM3 (1.0-4.8); MEAN CELL VOLUME 88.2 FL (80.0-100.0); MEAN CORPUSCULAR HEMOGLOBIN 30.5 PG (27.0-34.0); MEAN CORPUSCULAR HGB CONC 34.6 % (32.0-36.0); MONO % 6.1 % (0.0-8.0); NEUT % 69.8 % (16.0-70.0); PLATELET COUNT 111 TH/MM3 (150-450); RED CELL DISTRIBUTION WIDTH 15.2 % (11.6-17.2)
[2016-12-25 14:55] LABS: HEMO FLAGS AUTO DIFF
[2016-12-25 15:12] LABS: BICARBONATE 25.3 MEQ/L (21.0-32.0); POTASSIUM 3.3 MEQ/L (3.5-5.1)
[2016-12-25 16:00] VITALS: BP 145/72; PULSE 66; RESP 16; TEMP 95.9; O2SAT 96
[2016-12-25 16:34] LABS: PLATELET ESTIMATE SMEAR LOW (NORMAL); PLATELET MORPHOLOGY NORMAL (NORMAL); SCAN/DIFF AUTO DIFF CONFIRMED
[2016-12-25] MEDS ORDERED: METHOTREXATE 2.5 MG TAB PO SCH (20:00)
== END 2016-12-25 17:18 | DRG 871 ==
LOC: NEPC 12:28 → NEDA 17:48 → N07B 20:52
PROVIDERS: ADMIT Hospitalist; ATTEND Hospitalist
DX: A41.52 Sepsis due to Pseudomonas (principal); G93.41 Metabolic encephalopathy; J18.9 Pneumonia, unspecified organism; G35 Multiple sclerosis; F03.90 Unspecified dementia, unspecified severity, without behavioral disturbance, psychotic disturbance, mood disturbance, and anxiety; E86.0 Dehydration; M06.9 Rheumatoid arthritis, unspecified; N30.00 Acute cystitis without hematuria; N31.2 Flaccid neuropathic bladder, not elsewhere classified; I10 Essential (primary) hypertension; R33.9 Retention of urine, unspecified; R65.20 Severe sepsis without septic shock; G50.0 Trigeminal neuralgia; B96.5 Pseudomonas (aeruginosa) (mallei) (pseudomallei) as the cause of diseases classified elsewhere; E87.6 Hypokalemia; I25.10 Atherosclerotic heart disease of native coronary artery without angina pectoris; M54.2 Cervicalgia; R91.8 Other nonspecific abnormal finding of lung field; Z16.30 Resistance to unspecified antimicrobial drugs; Z87.440 Personal history of urinary (tract) infections; Z87.891 Personal history of nicotine dependence; Z92.21 Personal history of antineoplastic chemotherapy; Z85.828 Personal history of other malignant neoplasm of skin; Z74.01 Bed confinement status
CPT/HCPCS: 36569; 51702; 70490; 71010; 71250; 76937; 80048; 80053; 81001; 83036; 83605; 83735; 84100; 84439; 84443; 84484; 85007; 85025; 85027; 87040; 87077; 87086; 87186; 87205; 93005; 93306; 96360; 96361; J0692; J0696; J1650; J2185; J2405; J3370; J7030; J7050